=== PATIENT | male | born 1950 | race Caucasian/White ===

== ENCOUNTER 2016-08-20 17:20 | Emergency (ER) | payer MEDICARE, OTHER ==
[~2016-08-20] VITALS: Ht 175.3 cm; Wt 83.0 kg
[~2016-08-20 17:20] MED LIST: Z.0.NO CURRENT MEDS
[2016-08-20 17:22] VITALS: BP 164/97; PULSE 104; RESP 17; TEMP 98.4; O2SAT 95
--- NOTE | 2016-08-20 17:38 | PD ---
Physical Exam Date Seen by Provider: Aug 20, 2016 Time Seen by Provider: 17:36 Narrative 66 yo male here for blood on the urine. Has had it for a few days. Went to today to the doctor who sent him here. Here with a note from doctor and a test tube with urine which is red. Some non specific discomfort to his abdomen from "my IBS". No BM issues. Takes no blood thinners. Pain is 3/10 when he pees. Vitals are stable. Awaiting bed placement. Data Data Last Documented VS Vital Signs Date Time Temp Pulse Resp B/P Pulse Ox O2 Delivery O2 Flow Rate FiO2 08/20/16 17:22 98.4 104 17 164/97 95 MDM Medical Record Reviewed: Yes Supervised Visit with CORONA: No Junior Valerio Aug 20, 2016 17:38
[2016-08-20 18:38] LABS: BACTERIA, URINE MANY /hpf; BLOOD, URINE MOD (NEG); COMMENT (UR) CULTURE INDICATED; CULTURE IF INDICATED CULTURE INDICATED; GLUCOSE,URINE NEG (NEG); KETONE, URINE NEG (NEG); NITRITE,URINE NEG (NEG)
[2016-08-20 18:39] LABS: URINE COLOR DARK-BROWN (YELLW/STRAW)
--- NOTE | 2016-08-20 18:43 | PD ---
HPI Chief Complaint: Complaint Time Seen by Provider: 18:20 Travel History International Travel<30 days: No Contact w/Intl Traveler<30days: No Traveled to known affect area: No History of Present Illness HPI 66-year-old male sent in by primary care physician for evaluation of hematuria. Patient has been having gross hematuria since this morning as well as dysuria and increased urinary frequency. He is not sure if he is having lower back pain or flank pain, stating that he usually has pains in these areas anyway from age. He has been having some GI upset with abdominal cramping for the last week and blames it on irritable bowel syndrome. He is a nonsmoker. No known history of cancer. No family history of cancer. About 18 years ago he was told that his PSA was elevated and had extensive procedures on his prostate , however this was a lab error, and the patient went through some much during this time that he has not seen a physician since. He is not on any antiplatelets or anticoagulants. PFSH Past Medical History Blood Disorders: Yes (HOSPITALIZED FROM 06/12/07 - 06/18/07 FOR BLOOD CLOT TO RIGHT UPPER ARM) Cancer: No Diabetes: No Diminished Hearing: No Hepatitis: No Hiatal Hernia: No Hypertension: No Inguinal Hernia: Yes Thyroid Disease: No Past Surgical History Pacemaker: No Other Surgery: No Social History Alcohol Use: Yes (2 BEERS PER NIGHT) Tobacco Use: No Substance Use: No Allergies-Medications (Allergen,Severity, Reaction): Coded Allergies: No Known Allergies (Verified , 08/20/16) Reported Meds & Prescriptions Reported Meds & Active Scripts Active No Active Prescriptions or Reported Medications Review of Systems Except as stated in HPI: all other systems reviewed are Neg Physical Exam Narrative GENERAL: Well-developed, well-nourished, comfortable, no acute distress. SKIN: Focused skin assessment warm/dry. No pallor. HEAD: Atraumatic. Normocephalic. EYES: Pupils equal and round. No scleral icterus. No injection or drainage. ENT: Mucous membranes pink and moist. NECK: Trachea midline. No JVD. CV: No murmur appreciated. RESPIRATORY: No accessory muscle use. Clear to auscultation. Breath sounds equal bilaterally. GASTROINTESTINAL: Abdomen soft, non-tender, nondistended. Normal bowel sounds. MUSCULOSKELETAL: No obvious deformities. No clubbing. No cyanosis. No edema. No CVA tenderness. NEUROLOGICAL: Awake and alert. No obvious cranial nerve deficits. Motor grossly within normal limits. Normal speech. PSYCHIATRIC: Appropriate mood and affect; insight and judgment normal. Data Data Last Documented VS Vital Signs Date Time Temp Pulse Resp B/P Pulse Ox O2 Delivery O2 Flow Rate FiO2 08/20/16 17:22 98.4 104 17 164/97 95 Orders Urinalysis - C+S If Indicated (08/20/16 17:40) Complete Blood Count With Diff (08/20/16 18:33) Comprehensive Metabolic Panel (08/20/16 18:33) Prothrombin Time / Inr (Pt) (08/20/16 18:33) Act Partial Throm Time (Ptt) (08/20/16 18:33) Ct Abd/Pel W Iv Contrast(Rout) (08/20/16 18:33) Iv Access Insert/Monitor (08/20/16 18:33) Ecg Monitoring (08/20/16 18:33) Oximetry (08/20/16 18:33) Sodium Chloride 0.9% Flush (Ns Flush) (08/20/16 18:45) Urine Culture (08/20/16 17:45) Ceftriaxone Inj (Rocephin Inj) (08/20/16 18:45) Creatine Kinase (Cpk) (08/20/16 18:44) Iohexol 350 Inj (Omnipaque 350 Inj) (08/20/16 19:57) Ciprofloxacin (Cipro) (08/20/16 21:30) Metronidazole (Flagyl) (08/20/16 21:30) Labs Laboratory Tests Test 08/20/16 08/20/16 17:45 18:30 Urine Color DARK-BROWN Urine Turbidity CLOUDY Urine pH 6.0 Urine Specific [place] 1.015 Urine Protein 100 mg/dL Urine Glucose (UA) NEG mg/dL Urine Ketones NEG mg/dL Urine Occult Blood MOD Urine Nitrite NEG Urine Bilirubin NEG Urine Urobilinogen LESS THAN 2.0 MG/DL Urine Leukocyte Esterase MOD Urine RBC /hpf Urine WBC /hpf Urine Bacteria MANY /hpf Microscopic Urinalysis Comment CULTURE INDICATED White Blood Count 10.7 TH/MM3 Red Blood Count 4.21 MIL/MM3 Hemoglobin 12.7 GM/DL Hematocrit 37.2 % Mean Corpuscular Volume 88.5 FL Mean Corpuscular Hemoglobin 30.2 PG Mean Corpuscular Hemoglobin 34.2 % Concent Red Cell Distribution Width 13.3 % Platelet Count 371 TH/MM3 Mean Platelet Volume 7.8 FL Neutrophils (%) (Auto) 83.7 % Lymphocytes (%) (Auto) 8.3 % Monocytes (%) (Auto) 7.4 % Eosinophils (%) (Auto) 0.3 % Basophils (%) (Auto) 0.3 % Neutrophils # (Auto) 8.9 TH/MM3 Lymphocytes # (Auto) 0.9 TH/MM3 Monocytes # (Auto) 0.8 TH/MM3 Eosinophils # (Auto) 0.0 TH/MM3 Basophils # (Auto) 0.0 TH/MM3 CBC Comment DIFF FINAL Differential Comment Prothrombin Time 10.8 SEC Prothromb Time International 1.0 RATIO Ratio Activated Partial 28.5 SEC Thromboplast Time Sodium Level 138 MEQ/L Potassium Level 3.3 MEQ/L Chloride Level 102 MEQ/L Carbon Dioxide Level 28.1 MEQ/L Anion Gap 8 MEQ/L Blood Urea Nitrogen 9 MG/DL Creatinine 1.10 MG/DL Estimat Glomerular Filtration 67 ML/MIN Rate Random Glucose 101 MG/DL Calcium Level 9.1 MG/DL Total Bilirubin 0.4 MG/DL Aspartate Amino Transf 19 U/L (AST/SGOT) Alanine Aminotransferase 28 U/L (ALT/SGPT) Alkaline Phosphatase 82 U/L Total Creatine Kinase 93 U/L Total Protein 7.9 GM/DL Albumin 3.2 GM/DL MDM Medical Decision Making Medical Screen Exam Complete: Yes Emergency Medical Condition: Yes Differential Diagnosis UTI, cystitis, mass, nephrolithiasis/ureterolithiasis Narrative Course Vital signs reviewed. CBC shows WBC 10.7, hemoglobin 12.7, hematocrit 37.2, platelets 371, neutrophils 83.7%. CMP is remarkable for potassium 3.3, otherwise unremarkable. Total CK is 93. UA: 100 protein, moderate occult blood, moderate leukocyte esterase, innumerable rbc 's, innumerable wbc's, many bacteria, culture indicated. CT abdomen pelvis: CONCLUSION: 1. Long segment of thickening of the sigmoid colon with surrounding inflammatory change and suspected developing abscess all likely related to diverticulitis. An underlying lesion cannot be excluded. 2. Gallstone. 3. Several hyperdensities seen in the liver. The largest one measures 9 mm and measures water density. These likely represent small cysts. Case discussed with on-call colorectal surgeon Dr. Cabrera. States that it patient is well-appearing, he can be started on oral antibiotics and follow-up as an outpatient. Patient prefers to follow-up as an outpatient. While in the emergency department his urine has gone from gross dark/red hematuria to light pink. He was given a dose of IV Rocephin. He will be given oral Cipro and Flagyl. He was instructed to follow-up with colorectal surgeon Dr. Cabrera this week. He will also be given information to follow up with urology Dr. Gutierrez this week. I also stressed the importance of following up with his primary care physician this week. Patient informed on when to return to the emergency department. He verbalizes understanding and agreement with plan. Diagnosis Primary Impression: Sigmoid diverticulitis Additional Impressions: Hematuria UTI (urinary tract infection) Qualified Code: N39.0 - Urinary tract infection with hematuria, site unspecified Referrals: Chris Cabrera MD 3 days Colorectal surgeon Nic Gutierrez MD 3 days Urologist Primary Care Physician 3 days Additional Instructions: Follow-up with your primary care physician this week. Follow-up with colorectal surgeon Dr. Cabrera or a colorectal surgeon of your choice this week. Follow-up with urologist Dr. Gutierrez or urologist of your choice this week. Take antibiotics as prescribed. Return to the emergency department for worsening symptoms or any other concerns. Scripts Metronidazole (Flagyl)500 Mg [id number] Mg PO BID 14 Days Ref 0 Prov:David Nam MD 08/20/16 Ciprofloxacin (Cipro)500 Mg [id number] Mg PO BID 14 Days Ref 0 Prov:David Nam MD 08/20/16 Disposition: 01 DISCHARGE HOME Condition: Stable David Nam MD Aug 20, 2016 18:43
[2016-08-20] MEDS ORDERED: cefTRIAXone INJ 1,000 MG in SODIUM CHLORIDE 0.9% INJ 100 ML IV ONE (18:45)
[2016-08-20] MEDS ORDERED: SODIUM CHLORIDE 0.9% FLUSH 10 ML FLUSH IV FLUSH PRN (18:45)
[2016-08-20 19:05] LABS: AUTOMATED NEUTROPHIL # 8.9 TH/MM3 (1.8-7.7); BASOPHIL % 0.3 % (0.0-2.0); EOSINOPHIL % 0.3 % (0.0-4.0); HEMATOCRIT 37.2 % (39.0-51.0); HEMO FLAGS DIFF FINAL; LYMPH % 8.3 % (9.0-44.0); LYMPHOCYTE # 0.9 TH/MM3 (1.0-4.8); MEAN CELL VOLUME 88.5 FL (80.0-100.0); MEAN CORPUSCULAR HEMOGLOBIN 30.2 PG (27.0-34.0); MEAN CORPUSCULAR HGB CONC 34.2 % (32.0-36.0); MONO % 7.4 % (0.0-8.0); NEUT % 83.7 % (16.0-70.0); PLATELET COUNT 371 TH/MM3 (150-450); RED BLOOD COUNT 4.21 MIL/MM3 (4.50-5.90); RED CELL DISTRIBUTION WIDTH 13.3 % (11.6-17.2); WHITE BLOOD COUNT 10.7 TH/MM3 (4.0-11.0)
[2016-08-20 19:15] LABS: APTT (PATIENT) 28.5 SEC (24.3-30.1); PROTHROMBIN TIME - PATIENT 10.8 SEC (9.8-11.6)
[2016-08-20 19:23] LABS: ANION GAP 8 MEQ/L (5-15); AST (GOT) 19 U/L (15-37); BICARBONATE 28.1 MEQ/L (21.0-32.0); BLOOD UREA NITROGEN 9 MG/DL (7-18); CHLORIDE 102 MEQ/L (98-107); GLOMERULAR FILTRATION RATE 67 ML/MIN (>89); POTASSIUM 3.3 MEQ/L (3.5-5.1); SODIUM (NA) 138 MEQ/L (136-145)
[2016-08-20 19:24] LABS: ALT (GPT) 28 U/L (12-78)
[2016-08-20 19:26] LABS: ALKALINE PHOSPHATASE 82 U/L (45-117); TOTAL BILIRUBIN ADULT 0.4 MG/DL (0.2-1.0)
[2016-08-20] MEDS ORDERED: IOHEXOL 350 MG/ML 10 ML VIAL (for RAD DIAG) IV ONE (19:57)
--- NOTE | 2016-08-20 20:52 | RADRPT ---
EXAM DATE/TIME: 08/20/2016 19:47 [place] COMPARISON: No previous studies available for comparison. INDICATIONS : Patient with abdominal pain, bloody urine, pain when urinating. IV CONTRAST: 95 cc Omnipaque 350 (iohexol) IV ORAL CONTRAST: No oral contrast ingested. RADIATION DOSE: 8.76 CTDIvol (mGy) MEDICAL HISTORY : None SURGICAL HISTORY : Inguinal hernia ENCOUNTER: Initial ACUITY: 1 day PAIN SCALE: 5/10 LOCATION: Lower quadrant TECHNIQUE: Volumetric scanning of the abdomen and pelvis was performed. Using automated exposure control and adjustment of the mA and/or kV according to patient size, radiation dose was kept as low as reasonably achievable to obtain optimal diagnostic quality images. DICOM format image data is av ailable electronically for review and comparison. FINDINGS: There is thickening of the proximal and midsigmoid colon. There is surrounding inflamm atory change. There are scattered diverticula. There is a 2.4 cm ill-defined area of low density see n to the right of the proximal sigmoid colon likely related to a developing abscess. There is a calcified gallstone seen in the gallbladder. There are small hyperdensities seen in the l iver. The subcentimeter hyperdensity is likely related to cyst or hemangiomas. They are nonspecific . They are too small to be further characterized. The spleen, pancreas, adrenal glands and kidneys a ppear normal. The retroperitoneal structures are normal. There is diffuse bladder wall thickening. Much of this may be secondary to the lack of distension. There is only a small amount of fluid with in the urinary bladder. The prostate appears normal in size. The lung bases are clear. There is so me degenerative change in the lumbar spine. CONCLUSION: 1. Long segment of thickening of the sigmoid colon with surrounding inflammatory change and suspected developing abscess all likely related to diverticulitis. An underlying lesion cannot be excluded. 2. Gallstone. 3. Several hyperdensities seen in the liver. The largest one measures 9 mm and measures water density . These likely represent small cysts. Abram Amezcua MD on August 20, 2016 at 20:17 Board Certified Radiologist. This report was verified electronically.
[2016-08-20] MEDS ORDERED: metroNIDAZOLE 500 MG TAB PO ONE (21:30)
[2016-08-20] MEDS ORDERED: CIPROFLOXACIN 500 MG TAB PO ONE (21:30)
[2016-08-20] MEDS ORDERED: METR-1 PO (21:36)
[2016-08-20] MEDS ORDERED: CIPR-9 PO (21:36)
[2016-08-20 22:45] VITALS: BP 154/76; PULSE 80; RESP 18; O2SAT 98
== END 2016-08-20 22:45 | disposition home or self-care (01) ==
LOC: NEPD 17:20
DX: K57.32 Diverticulitis of large intestine without perforation or abscess without bleeding (principal); R31.9 Hematuria, unspecified; N39.0 Urinary tract infection, site not specified; B96.20 Unspecified Escherichia coli [E. coli] as the cause of diseases classified elsewhere; Z86.79 Personal history of other diseases of the circulatory system
CPT/HCPCS: 74177; 80053; 81001; 82550; 85025; 85610; 85730; 87077; 87086; 87186; 96365; 99285; J0696; Q9967

== ENCOUNTER 2016-09-16 14:12 | Inpatient (IN) | payer MEDICARE ==
[~2016-09-16] VITALS: Ht 177.8 cm; Wt 81.2 kg
[2016-09-17] MEDS ORDERED: CIPR-9 PO (17:04)
[2016-09-24] MEDS ORDERED: NORMOSOL R INJ 1,000 ML IV ONE (12:00)
[2016-09-24] MEDS ORDERED: NEOSTIGMINE 3 MG/3 ML SYR IV ONE (12:00)
[2016-09-24] MEDS ORDERED: ONDANSETRON HCL 4 MG/2 ML VIAL IV PUSH ONE (12:00)
[2016-09-24] MEDS ORDERED: PROPOFOL 200 MG/20 ML AMP IV ONE (12:00)
[2016-09-24] MEDS ORDERED: LACTATED RINGER'S 1000 ML INJ 1,000 ML IV ONE (12:00)
[2016-09-24] MEDS ORDERED: PHENYLEPH/NS 1000 MCG/10 ML SYR IV ONE (12:00)
[2016-09-24] MEDS ORDERED: CHLORHEXIDINE GLUCONATE 2 % 1 PACK (2 CLOTHS) TOPICAL PRN (12:45)
[2016-09-24] MEDS ORDERED: LACTATED RINGER'S 1000 ML IV PRN (12:45)
[2016-09-24] MEDS ORDERED: METRONIDAZOLE 500 MG/100 ML ISONTONIC SOLN IV SCH (12:45)
[2016-09-24] MEDS ORDERED: ceFAZolin 1,000 MG/NS 100 ML IV SCH ×2 (12:45)
[2016-09-24] MEDS ORDERED: POVIDONE IODINE 5% (ANTISEPSIS KIT) 4 APPLICATIONS EACH NARE PRN (12:45)
[2016-09-24] MEDS ORDERED: ALVIMOPAN 12 MG CAPSULE - On Call PO SCH (12:45)
[2016-09-24] MEDS ORDERED: METOPROLOL TARTRATE 25 MG TAB PO PRN (12:45)
[2016-09-24] MEDS ORDERED: SODIUM CHLORID 0.9% 500 ML IV PRN (12:45)
[2016-09-24] MEDS ORDERED: INSULIN HUMAN REGULAR 1,000 UNITS/10 ML VIAL SQ PRN (12:45)
[2016-09-24] MEDS ORDERED: METR-1 PO (12:49)
[2016-09-24 12:50] VITALS: BP 126/77; PULSE 98; RESP 20; TEMP 98.2; O2SAT 98
[2016-09-24] MEDS ORDERED: DEXT 5%-NACL 0.9% 1000 ML INJ 1,000 ML IV SCH (13:00)
--- NOTE | 2016-09-24 14:00 | PD.HP.UP ---
H&P Update Note The Pre-Admit History and Physical Examination regarding the above named patient was reviewed (including, but not limited to, vital signs, heart, lungs, co-morbid conditions), and upon re-examination it is noted that: the patient's condition has not significantly changed since the last examination. Chris Cabrera MD Sep 24, 2016 14:00
[2016-09-24] MEDS ORDERED: BUPIVACAINE HCL PF 0.5% 30 ML VIAL ONE (14:56)
[2016-09-24] MEDS ORDERED: ACETAMINOPHEN 1000 MG/100 ML VIAL IV ONE (14:59)
[2016-09-24] MEDS ORDERED: MIDAZOLAM HCL 2 MG/2 ML VIAL ONE ×2 (14:59→15:17)
[2016-09-24] MEDS ORDERED: FAMOTIDINE 20 MG/2 ML VIAL ONE (14:59)
[2016-09-24] MEDS: D5-NS + KCL 20 MEQ INJ 1,000 ML IV SCH ×2 (17:51→23:49)
[2016-09-24] MEDS ORDERED: DO NOT ADM ANY ANTICOAGULANT DRUGS PRN (17:54)
[2016-09-24] MEDS ORDERED: SODIUM CHLORIDE 0.9% FLUSH 5 ML FLUSH IVF PRN (18:00)
[2016-09-24] MEDS ORDERED: *morphine SULFATE 8 MG/ML PERIprocedure ONLY ONE ×3 (18:00→18:14)
[2016-09-24] MEDS ORDERED: BENZOCAINE 6 MG/MENTHOL 10 MG LOZENGE BUCCAL PRN (18:00)
[2016-09-24] MEDS ORDERED: ENALAPRILAT 2.5 MG/2 ML VIAL IV PRN (18:00)
[2016-09-24] MEDS ORDERED: Post-op Orders (for Pharmacy) MISC XX ONE (18:00)
[2016-09-24] MEDS ORDERED: KETOROLAC TROMETHAMINE 30 MG/ML (IVP) VIAL IVP PRN (18:00)
[2016-09-24] MEDS ORDERED: ENALAPRILAT 1.25 MG/ML VIAL IV PRN (18:00)
[2016-09-24] MEDS ORDERED: POTASSIUM CHLOR 40 MEQ PREMIX 100 ML IV PRN (18:00)
[2016-09-24] MEDS ORDERED: NALOXONE HCL 0.4 MG/ML AMP IV PRN (18:00)
[2016-09-24] MEDS ORDERED: POTASSIUM CHLOR 20 MEQ PREMIX 100 ML IV PRN (18:00)
[2016-09-24] MEDS ORDERED: ACETAMINOPHEN/HYDROcodone 325 MG/5 MG TAB PO PRN (18:00)
--- NOTE | 2016-09-24 18:01 | HHI.PR ---
Immediate Post Op Note Procedure Date: Sep 24, 2016 Pre Op Diagnosis: Cancer rectosigmoid Post Op Diagnosis: same with colovesical fistula, peritoneal carcinomatosis Surgeon: Chris Cabrera Certified Caregiver(s): Reba Procedure: Exploratory lap, resection rectosigmoid, Baldomero pouch, end colostomy closure bladder fistual, omental flap Findings: obstructing ca sigmoid colon with fistual to bladder dome, peritoneal seeds liver/GB clean Complications: none Specimen(s) removed: rectosigmoid colon, bladder fistula Estimated blood loss: 100cc Anesthesia: General Drains: KANG IVF Patient to: PACU Patient Condition: Chris Bridges MD Sep 24, 2016 18:01
[2016-09-24] MEDS ORDERED: fentaNYL CITRATE 250 MCG/5 ML AMP ONE ×2 (18:03)
[2016-09-24] MEDS ORDERED: *HYDROmorphone PF 1 MG VIAL PERIprocedural Use ONLY ONE (18:26)
--- NOTE | 2016-09-24 20:04 | MB ---
cc: EM REAL MD, TIMOTHY DATE OF CONSULTATION: 09/24/2016 REASON FOR CONSULTATION: NOTE IN DETAIL This is a 66-year-old gentleman who is under the care of Dr. Jason Britton and Dr. Chris Cabrera. He was being operated upon for what appeared to be a sigmoid colon carcinoma. Throughout the course of the surgery it became apparent that the gentleman has significant involvement of the serosal surface and the peritoneal layer of the inferior most aspect of his abdomen as that courses over the top of his bladder or the dome of the bladder. We did not know, or do not know, if there is involvement within the bladder itself, however, as the tumor was taken down from the dome, it appeared that there was a tiny bit of urine coming out from the bladder, so our service was consulted. Dr. Britton was able to place a [id number] suture into the bladder itself to tighten that area up, and then although the tissue somewhat firm over the dome of the bladder, we used a multitude of 0 Vicryl ligatures to pull that area together to provide some coverage, even though ultimately it may very well pull through. How much of this is just inflammatory tissue versus tumor is not clear at the moment. He has widespread metastatic disease throughout the pelvis unfortunately. The Juares catheter was left in place. The dome has been oversewn. There has been omental fat placed over the top of this and there is nothing further that we can do at the moment. We will remain available for additional consultative help. In the meantime, the catheter should be left in for at least 3 weeks and then we can be reconsulted if necessary. I spent about a half hour in the operating room observing, and made myself available to surgically assist if need be, and it turned out that I did not need to actively intervene. MD MARTA Romano/ELIZABETH /7:48 PM /7:55 PM
[2016-09-24] MEDS: MORPHINE SULFATE 30 MG/30 ML PCA IV SCH (20:16)
[2016-09-24 20:30] VITALS: BP 128/78; PULSE 94; RESP 16; TEMP 98.1; O2SAT 99
[2016-09-24] MEDS: SODIUM CHLORIDE 0.9% FLUSH 5 ML FLUSH IVF SCH (21:00)
[2016-09-24] MEDS: METOCLOPRAMIDE HCL 10 MG/2 ML VIAL IVS SCH (21:00)
[2016-09-24] MEDS: PCA - TOTAL MG MORPHINE DELIVERED PER SHIFT SCH (22:00)
[2016-09-24] MEDS: metroNIDAZOLE 500 MG INJ 100 ML IV SCH (23:43)
[2016-09-25] VITALS (18 sets, daily range): BP systolic 106–145; BP diastolic 64–88; PULSE 59–102; RESP 14–17; TEMP 96.8–98.2; O2SAT 95–100
[2016-09-25 05:49] LABS: AUTOMATED NEUTROPHIL # 9.1 TH/MM3 (1.8-7.7); BASOPHIL % 0.1 % (0.0-2.0); HEMO FLAGS DIFF FINAL; LYMPH % 2.3 % (9.0-44.0); LYMPHOCYTE # 0.2 TH/MM3 (1.0-4.8); MEAN CELL VOLUME 89.7 FL (80.0-100.0); MEAN CORPUSCULAR HEMOGLOBIN 29.8 PG (27.0-34.0); MEAN CORPUSCULAR HGB CONC 33.2 % (32.0-36.0); MONO % 5.1 % (0.0-8.0); NEUT % 92.5 % (16.0-70.0); PLATELET COUNT 291 TH/MM3 (150-450); RED BLOOD COUNT 3.68 MIL/MM3 (4.50-5.90); WHITE BLOOD COUNT 9.8 TH/MM3 (4.0-11.0)
[2016-09-25] MEDS: PCA - TOTAL MG MORPHINE DELIVERED PER SHIFT SCH ×3 (06:00→22:00)
[2016-09-25 06:13] LABS: BICARBONATE 26.7 MEQ/L (21.0-32.0); POTASSIUM 4.5 MEQ/L (3.5-5.1)
[2016-09-25] MEDS: D5-NS + KCL 20 MEQ INJ 1,000 ML IV SCH ×4 (06:27→23:11)
[2016-09-25] MEDS: metroNIDAZOLE 500 MG INJ 100 ML IV SCH ×2 (06:27→13:18)
[2016-09-25] MEDS: PANTOPRAZOLE SOD 40 MG DELAYED RELEASE TAB PO SCH (08:47)
[2016-09-25] MEDS: ALVIMOPAN 12 MG CAPSULE PO SCH ×2 (08:48→20:36)
[2016-09-25] MEDS: SODIUM CHLORIDE 0.9% FLUSH 5 ML FLUSH IVF SCH ×2 (08:49→20:39)
[2016-09-25] MEDS: PANTOPRAZOLE SODIUM 40 MG VIAL IVP SCH (08:49)
[2016-09-25] MEDS: METOCLOPRAMIDE HCL 10 MG/2 ML VIAL IVS SCH ×2 (08:49→20:36)
[2016-09-25] MEDS ORDERED: ALVIMOPAN 12 MG CAPSULE - Post-op dosing PO SCH (09:00)
--- NOTE | 2016-09-25 11:27 | PD.WCN.NOT ---
Wound Consult Description: Consult for NEW OSTOMY TEACHING per Dr Cabrera Communicated with: CHAPARRITA Hardy Dr Recommendation: Follow up with [facility] RN for ostomy teaching and reinforcement Additional Information: Patient seen on [facility] for New Ostomy teaching. Patient was lying in bed with significant other standing at his at bedside. After introducing myself, and explaining the new ostomy on his abdomen, the patient asked what it was. Information was given to the patient about the colostomy surgery that was performed. Patient stated that he did not know he was going to have "the bag" when going home, referring to the ostomy appliance. It was apparent that the patient needed more time to process what he had learned about his new ostomy, he became tearful and withdrawn from the conversation. It was explained to him that he would be given some time to process the information and will be seen again tomorrow. Ostomy Type: Colostomy Surgeon: Chris Cabrera MD Date of Surgery: Sep 24, 2016 Complete: Education materials ([facility] Colostomy kit left in room for patient when he is ready to open and read "What to Expect with Colostomy Surgery" it is available) Educated patient on: Educated patient on his colostomy surgery. Informed him that the pouch will need to be emptied, the RN's would be doing this often and when he is ready, we would be showing him how to empty it. Additional information Stoma is noted in the left upper quadrant of the abdomen measuring ~1 3/4 inches. Stoma is round, red, moist, edematous, moderately protruding, and functioning with minimal liquid brown effluent noted to pouch. Wafer (barrier) is intact without leaks. Lumen appears to be in the center of the stoma. Peristomal skin and mucocutaneous junction are not visualized at this time. There is foam tape noted to midline abdomen and on lower right quadrant with Azeem Shah drain in place with minimal serosang drainage noted. Josette Reis [facility] Sep 25, 2016 11:27
[2016-09-25] MEDS: ONDANSETRON HCL 4 MG/2 ML VIAL IV PRN (15:51)
[2016-09-25] MEDS: ACETAMINOPHEN/HYDROcodone 325 MG/5 MG TAB PO PRN ×2 (15:51→20:38)
[2016-09-25] MEDS: MORPHINE SULFATE 30 MG/30 ML PCA IV SCH (17:45)
[2016-09-25] MEDS: ACETAMINOPHEN 325 MG TAB PO PRN (23:00)
[2016-09-26 04:00] VITALS: BP 120/69; PULSE 71; RESP 16; TEMP 96.3; O2SAT 97
[2016-09-26] MEDS: PCA - TOTAL MG MORPHINE DELIVERED PER SHIFT SCH ×3 (05:11→22:00)
[2016-09-26 06:59] LABS: AUTOMATED NEUTROPHIL # 6.1 TH/MM3 (1.8-7.7); BASOPHIL % 0.2 % (0.0-2.0); EOSINOPHIL % 0.4 % (0.0-4.0); HEMATOCRIT 30.8 % (39.0-51.0); HEMO FLAGS DIFF FINAL; LYMPH % 7.4 % (9.0-44.0); LYMPHOCYTE # 0.5 TH/MM3 (1.0-4.8); MEAN CELL VOLUME 89.7 FL (80.0-100.0); MEAN CORPUSCULAR HEMOGLOBIN 29.6 PG (27.0-34.0); MEAN CORPUSCULAR HGB CONC 33.1 % (32.0-36.0); MONO % 7.1 % (0.0-8.0); NEUT % 84.9 % (16.0-70.0); PLATELET COUNT 264 TH/MM3 (150-450); RED BLOOD COUNT 3.43 MIL/MM3 (4.50-5.90); RED CELL DISTRIBUTION WIDTH 14.3 % (11.6-17.2); WHITE BLOOD COUNT 7.2 TH/MM3 (4.0-11.0)
[2016-09-26 07:19] LABS: BICARBONATE 25.5 MEQ/L (21.0-32.0); POTASSIUM 4.5 MEQ/L (3.5-5.1)
[2016-09-26 08:00] VITALS: BP 159/79; PULSE 79; RESP 18; TEMP 97.5; O2SAT 96
[2016-09-26] MEDS: SODIUM CHLORIDE 0.9% FLUSH 5 ML FLUSH IVF SCH ×2 (08:24→20:12)
[2016-09-26] MEDS: METOCLOPRAMIDE HCL 10 MG/2 ML VIAL IVS SCH ×2 (08:24→20:12)
[2016-09-26] MEDS: PANTOPRAZOLE SOD 40 MG DELAYED RELEASE TAB PO SCH (08:24)
[2016-09-26] MEDS: ALVIMOPAN 12 MG CAPSULE PO SCH ×2 (08:24→20:12)
[2016-09-26] MEDS: PANTOPRAZOLE SODIUM 40 MG VIAL IVP SCH (08:25)
[2016-09-26] MEDS: ACETAMINOPHEN/HYDROcodone 325 MG/5 MG TAB PO PRN ×4 (11:08→22:48)
[2016-09-26] MEDS: ONDANSETRON HCL 4 MG/2 ML VIAL IV PRN (11:09)
[2016-09-26 12:00] VITALS: BP 136/78; PULSE 89; RESP 18; TEMP 98.7; O2SAT 99
[2016-09-26] MEDS: D5-NS + KCL 20 MEQ INJ 1,000 ML IV SCH ×2 (12:03→22:49)
[2016-09-26 16:00] VITALS: BP 128/76; PULSE 82; RESP 18; TEMP 98; O2SAT 99
--- NOTE | 2016-09-26 18:18 | PD.WCN.NOT ---
Wound Consult Description: Consult for NEW OSTOMY TEACHING per Dr Cabrera Communicated with: CHAPARRITA Selby Patient Daughter Recommendation: Continue to practice releasing air from pouch. Read "What to expect after Colostomy Surgery" Follow up with [facility] RN after discharge for ostomy teaching and reinforcement Additional Information: Patient seen on for Ostomy teaching. Patient stated feeling a little better, however requested that his be here during teaching. It was explained to him that we could arrange for another teaching session with her tomorrow but that we were going to go over a few things in the mean time. Ostomy Type: Colostomy Surgeon: Chris Cabrera MD Date of Surgery: Sep 24, 2016 Complete: Starter kit, Education materials ([facility] Colostomy kit left in room for patient when he is ready to open and read "What to Expect with Colostomy Surgery" it is available) Educated patient on: Patient stated that he had only seen his bag, nothing more. He was given a booklet from the starter kit that was given to him yesterday, that goes over some basic information regarding colostomies, the intestinal system, and pouching options. He was encouraged to read that later tonight. Time was spent going over how the intestines work and what they do for him to better understand the functions. We discussed differences in ostomies and the benefits to having one. The stoma was explained to him, how it was made, and what kind of output he should expect from it including noises. The patient was taught how to release the air from the pouch and he participated in this. He also learned how to close the pouch after gag writer emptied the pouch. The patient was interested in different types of pouches. Two different types of appliances were shown to him (closed ended pouches and one piece appliances). Additional information End stoma is visualized in the left quadrant of the abdomen. Appliance is intact without leaks noted. The pouch was partially removed to release air from pouch. The stoma is red, round, edematous, shiny, moist, budded, moderately protruding, functioning with flatus, and moderate brown liquid effluent noted to pouch that was emptied. Lumen is noted to the center of the stoma. Mucocutaneous junction was not visualized at this time. Patient has foam tape in place on midline abdomen. Questions regarding gray catheter and isela sommers drain were answered. Patient was participating in the conversation with return demonstration. Patient and daughter came into room 15 minutes after teaching began. Total time teaching was approximately 1 hour (from [id number]). Josette Reis [facility] Sep 26, 2016 18:18
[2016-09-26 19:00] VITALS: BP 131/76; PULSE 87; RESP 18; TEMP 98; O2SAT 98
--- NOTE | 2016-09-26 20:46 | MB ---
cc: VIKAS DAY M.D., ANDREW H. M.D. DATE OF CONSULTATION: 09/26/2016. REASON FOR CONSULTATION: Oncology was consulted to render opinion regarding a patient with colon cancer. CONSULTING PHYSICIAN: Dr. Chris Cabrera. HISTORY OF PRESENT ILLNESS: The patient is a very pleasant 66-year-old male with no significant past medical history who first noted blood in the urine about six weeks ago. He also noted some yellowish mucus. He went to see his primary doctor and was referred to the emergency room for evaluation of a urinary tract infection. At that time, he had a CT of the abdomen and pelvis which showed possible diverticulitis and abscess but an underlying mass could not be ruled out. He was referred to see Dr. Cabrera and a colonoscopy was attempted but he was noted to have possible colon mass. He subsequently developed a colovesical fistula and he was noticing food particles and air in his urine. He was brought into the hospital for surgical intervention. He underwent exploratory laparotomy two days ago and was noted to have a large tumor obstructing the sigmoid colon invading to the dome of the bladder. There was also a peritoneal seeding noted. He underwent resection of the rectosigmoid and colostomy placement as well as closure of the bladder fistula. He is slowly recovering from surgery. He still is a little tender but it is much better today. He denies any fever or chills or night sweats. He has lost about 25 pounds over the last six weeks. He has decreased appetite. He denies any chest pain. He denies any shortness of breath or cough. He denies any bone pain. PAST MEDICAL HISTORY: 1. Right upper extremity venous thrombosis in 2008. 2. Encephalitis. 3. Heat stroke in 2003. PAST SURGICAL HISTORY: 1. Hernia repair in 2013. 2. Recent colonoscopy. FAMILY HISTORY: Two brothers and one sister but he has no contact with them. He has two sons and two daughters, all healthy. SOCIAL HISTORY: He denies any tobacco use. He drinks about two beers a day. He is retired. He recently from his . ALLERGIES: NO KNOWN DRUG ALLERGIES. OUTPATIENT MEDICATIONS: He was not taking any medications before the hospital stay. REVIEW OF SYSTEMS: CONSTITUTIONAL: As above. EYES: Negative. ENT: Negative. CARDIOVASCULAR: Denies any chest pressure or palpitations. RESPIRATORY: Denies any shortness of breath or cough. GI: As above. : As above. HEMATOLOGIC: Negative. MUSCULOSKELETAL: Denies any significant bone pain or muscle pain. ENDOCRINE: Negative. DERMATOLOGIC: Negative. PSYCHIATRIC: He is a little anxious. NEUROLOGIC: Negative. PHYSICAL EXAMINATION: VITAL SIGNS: Temperature 98, blood pressure 128/76, 02 saturation 99%. GENERAL: He is alert and oriented times three and in no acute distress. He is a little anxious. HEAD, EYES, EARS, NOSE, THROAT: Atraumatic, normocephalic. Pupils equal, round, reactive to light. Extraocular muscles intact. No scleral icterus. OROPHARYNX: Dry mucosa. No lesions. No thrush. No mucositis. NECK: No thyromegaly. No palpable mass. LYMPHATIC: No palpable cervical, clavicular, axillary or inguinal lymph nodes. CARDIOVASCULAR: Regular S1-S2. No murmur. LUNGS: Clear to auscultation bilaterally. ABDOMEN: Colostomy noted. Positive bowel sounds. Surgical wound noted. No skin breakdown. No erythema. Still a little tender EXTREMITIES: No cyanosis. No clubbing. No edema. SKIN: No rash or petechiae. NEUROLOGIC EXAM: Nonfocal. LABORATORY DATA: Reviewed. ASSESSMENT: 1. Locally advanced colon cancer. He presented with abdominal pain and colovesical fistula. CT at the end of July showed a long segment of thickened sigmoid and underlying mass cannot be ruled out. Colonoscopy showed an obstructing mass in the sigmoid colon. CEA was normal 4.9. He underwent exploratory laparotomy, resection of rectosigmoid and placement of a Baldomero pouch, colostomy and closure of bladder fistula on September 24. He was noted to have a large obstructing mass in the sigmoid colon with fistula to the bladder dome and also seeding of the peritoneum. 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 There is also tumor perforation noted. Tumor invades adjacent bladder and 14 out of 15 lymph nodes were positive. Pathologic stage T4b N2b MX. I had an extensive discussion with the patient regarding the pathologic findings, diagnosis, staging, prognosis and treatment options. His disease appears to be locally advanced and can not be completely resected. There is seeding of the peritoneum. I told him treatment is going to be chemotherapy. I would like to get a PET scan as an outpatient for further staging. Once he has healed from the surgery, we could treat him with chemotherapy. I am also going to have pathology do mutation study to help guide the choice of systemic therapy. The patient is rather anxious. He had some questions today, which I answered. I also told him that he is going to need a port placement for chemotherapy administration but he would like to put it off first and we can do this as an outpatient. 2. History of right upper extremity deep venous thrombosis in 2008. 3. History of stroke and possible encephalitis. RECOMMENDATIONS: 1. Extensive discussion with the patient as above. 2. Will need outpatient PET/CT scan. 3. He is going to need port placement for chemotherapy administration but the patient would like to get it done as an outpatient. I discussed the case with Dr. Cabrera. Thank you, Dr. Cabrera, for asking me to see this patient. MD LUCIANA Street/BERNIE /7:47 PM /8:28 PM CIARA
--- NOTE | 2016-09-26 21:12 | MP ---
cc: DAVID ANAND MD DATE OF SURGERY 09/24/16 PREOPERATIVE DIAGNOSIS Obstruction of the rectosigmoid, probable colon carcinoma with colovesical fistula. PROCEDURE Exploratory laparotomy with proctosigmoidectomy, Baldomero pouch and end colostomy, closure of colovesical fistula. POSTOPERATIVE DIAGNOSIS Large bulky carcinoma of the sigmoid colon with colovesical fistula and peritoneal carcinomatosis. SURGEON Dr. Anand TRACK GREASER Dr. Magdalena Britton PROCEDURE IN DETAIL The patient was placed in the supine position. After adequate general anesthesia, his legs were placed in [place] stirrups and supported appropriately. The abdomen and perineum were then prepped with Betadine solution and draped in the usual sterile fashion. With Dr. Britton's assistance, the abdomen was opened through an infraumbilical and transverse incision dividing the rectus muscles with electrocautery. Exploration revealed a very large bulky tumor of the sigmoid colon which was stuck down to the bladder dome. It was very hard with signs of serosal puckering and evidence of peritoneal seating throughout the sigmoid mesentery and the pelvic peritoneum and cul-de-sac. The proximal colon was softly distended, mostly full of air and liquid stool. The liver was unremarkable. The gallbladder was unremarkable. Stomach and duodenum were normal. The great vessels were of normal caliber and fairly soft to palpation. First, the sigmoid colon was mobilized medially by dividing along the white line of Toldt. The left ureter was identified and carefully preserved. Dissection then proceeded up freeing the left colon off the retroperitoneum toward the splenic flexure. The right retroperitoneal space was then opened and the bowel dissected off the presacral fascia. At this point, it appeared that the tumor would be resectable so the pedicle for the superior hemorrhoidal vessels was identified and divided between Rand's obtaining hemostasis with Vicryl ties. The right ureter was identified and carefully preserved. Anteriorly, the colon was from the bladder dome with both blunt and sharp dissection, dividing the fistula, fistulous attachment to the bladder. At this point, the sigmoid colon was mobilized adequately to bring the tumor up out of the pelvis. There did appear to be peritoneal seeding along the cul-de-sac and the lateral peritoneal reflections. There was also tumor in the region of the colovesical fistula and the bladder peritoneal surface. For that reason, palliative resection was chosen dividing outside the rectal mesentery with electrocautery and Vicryl ties as indicated. The bowel was then divided in the proximal rectum using a TA 60 stapling device and a Denisha clamp. The mesentery was then divided in the proximal sigmoid above the tumor taking the marginal artery between Rand's obtaining hemostasis with Vicryl ties. The bowel was then divided using a YENNIFER stapling device and the specimen was removed. Attention was turned to the bladder fistula. A curette was used to remove as much of the inflammatory tissue around the outside of the fistula. The actual opening in the bladder was fairly small and this was closed after adequate debridement with several interrupted heavy Vicryl sutures. Attempts to resect the dome of the bladder were considered, however, due to the extensive peritoneal disease it was felt prudent not to proceed with an extensive bladder resection. The omentum was taken off the transverse colon along its avascular plane and a long pedicle flap was created which was able to be passed down the left gutter and filled the pelvis quite nicely. This was placed up along the bladder closure. Azeem-Shah drain was placed down into the presacral space and brought up through a stab wound in the right lower quadrant, secured to the skin with a nylon suture. Circular stab wound was then created in the left upper quadrant and taken down through the subcutaneous tissues opening up the rectus fascia splitting the rectus muscles and bringing the end of the sigmoid colon out through the opening without tension and with good blood supply. The abdomen was then irrigated copiously with normal saline. Adequate hemostasis achieved at all sites. The transverse incision closed anatomically in two layers using #1 PDS sutures to reapproximate the respective fascial layers. Subcu tissue was irrigated copiously and the skin closed with a running subcuticular Vicryl suture. Wound area washed with normal saline and dried, sterile dressing of Telfa and gauze applied. Finally, the YENNIFER staple line was removed from the end of the colostomy and the end of the sigmoid colon matured in the usual Cathy fashion by placing a row of interrupted chromic catgut sutures around the circumference. At completion, the stoma did appear to be viable and was patent through the fascial level. Sterile colostomy appliance fitted over the new stoma. The patient tolerated the procedure quite well and was brought to the recovery room in stable condition. Sponge and needle counts were correct at the end of the procedure. MD DELROY Noble /5:57 PM /8:56 PM
--- NOTE | 2016-09-26 23:01 | HHI.PR ---
Subjective Remarks C/R Surg POD # 2 afebrile, VSS UO good KANG min Objective - Vital Signs Date Time Temp Pulse Resp B/P Pulse Ox O2 Delivery O2 Flow Rate FiO2 09/26/16 19:00 98.0 87 18 131/76 98 09/25/16 08:04 Nasal Cannula 2.00 Result Diagram: 09/26/16 0552 09/26/16 0552 Objective Remarks PE alert Abd - soft, wound dry, stoma clean A/P Assessment and Plan Imp: stable post-op OOB oncology eval adv diet decr IVF Chris Cabrera MD Sep 26, 2016 23:01
[2016-09-27] VITALS: BP 156/78; PULSE 74; RESP 18; TEMP 96.6; O2SAT 99
[2016-09-27] MEDS: ACETAMINOPHEN/HYDROcodone 325 MG/5 MG TAB PO PRN ×4 (05:02→22:53)
--- NOTE | 2016-09-27 07:10 | HHI.PR ---
Subjective Remarks C/R Surg POD # 3 afebrile, VSS UO good KANG min stoma functioning Objective - Vital Signs Date Time Temp Pulse Resp B/P Pulse Ox O2 Delivery O2 Flow Rate FiO2 09/27/16 00:00 96.6 74 18 156/78 99 09/25/16 08:04 Nasal Cannula 2.00 Result Diagram: 09/26/16 0552 09/26/16 0552 Objective Remarks PE alert Abd - soft, wound dry, stoma clean/pink A/P Assessment and Plan Imp: stable post-op OOB oncology eval - done adv diet decr IVF Chris Cabrera MD Sep 27, 2016 07:10
[2016-09-27] MEDS ORDERED: METOCLOPRAMIDE HCL 10 MG/2 ML VIAL IVS PRN (07:15)
[2016-09-27 08:00] VITALS: BP 153/75; PULSE 75; RESP 17; TEMP 97.7; O2SAT 98
[2016-09-27] MEDS: PANTOPRAZOLE SODIUM 40 MG VIAL IVP SCH (09:00)
[2016-09-27] MEDS: SODIUM CHLORIDE 0.9% FLUSH 5 ML FLUSH IVF SCH ×2 (09:00→21:00)
[2016-09-27] MEDS: ALVIMOPAN 12 MG CAPSULE PO SCH ×2 (09:32→22:52)
[2016-09-27] MEDS: PANTOPRAZOLE SOD 40 MG DELAYED RELEASE TAB PO SCH (09:32)
[2016-09-27 12:00] VITALS: BP 118/76; PULSE 101; RESP 17; TEMP 96; O2SAT 99
--- NOTE | 2016-09-27 12:30 | PD.ONC.PN ---
Subjective Subjective Remarks Afebrile overnight. Patient resting in room. Reports the Lortab has been making him feel "loopy." Objective Data Date Time Temp Pulse Resp B/P Pulse Ox O2 Delivery O2 Flow Rate FiO2 09/27/16 08:00 97.7 75 17 153/75 98 09/27/16 00:00 96.6 74 18 156/78 99 09/26/16 22:00 18 09/26/16 19:00 98.0 87 18 131/76 98 09/26/16 16:00 98.0 82 18 128/76 99 09/26/16 14:00 18 Result Diagram: 09/26/16 0552 09/26/16 0552 Administered Medications Medications (Trade) Dose Ordered Sig/Jose Manuel Route PRN Reason Start Time Stop Time Status Last Admin Dose Admin Lactated Ringer's 1,000 ml @ 30 mls/hr Q24H PRN IV SEE LABEL COMMENTS 09/24/16 12:45 09/27/16 12:44 09/24/16 12:56 Potassium Chloride/Dextrose/ Sod Cl (D5-NS + KCl 20 Meq Inj) 1,000 ml @ 75 mls/hr [id number] IV 09/24/16 17:51 09/26/16 22:49 Acetaminophen/ Hydrocodone Bitart ([place] 5-325 Mg) 2 tab Q4H PRN PO PAIN SCALE 5 TO 10 09/24/16 18:00 09/27/16 09:32 Acetaminophen (Tylenol) 650 mg Q4H PRN PO Temperature > 101F 09/24/16 18:00 09/25/16 23:00 Alvimopan (Entereg) 12 mg BID PO 09/25/16 09:00 10/01/16 21:01 09/27/16 09:32 Pantoprazole Sodium (Protonix Inj) 40 mg DAILY IVP 09/25/16 09:00 09/25/16 08:49 Pantoprazole Sodium (Protonix) 40 mg DAILY PO 09/25/16 09:00 09/27/16 09:32 Ondansetron HCl (Zofran Inj) 4 mg Q6H PRN IV NAUSEA 09/24/16 18:00 09/26/16 11:09 Objective Remarks GENERAL: Middle aged male upright in bed in nad. SKIN: Warm and dry. HEAD: Normocephalic. EYES: No injection or drainage. NECK: Supple, trachea midline. CARDIOVASCULAR: Regular rate and rhythm RESPIRATORY: Breath sounds equal bilaterally. No accessory muscle use. GASTROINTESTINAL: Abdomen soft, mildly distended. colostomy bag in place with liquid stool. EXTREMITIES: No cyanosis NEUROLOGICAL: awake and alert, normal speech. moving all extremities. Assessment/Plan Problem List: (1) Colon cancer Status: Acute Plan: --Locally advanced colon cancer. --presented with abdominal pain and colovesical fistula. -- CT at the end of July showed a long segment of thickened sigmoid and underlying mass cannot be ruled out. --underwent exploratory laparotomy, resection of rectosigmoid and placement of a Baldomero pouch, colostomy and closure of bladder fistula on September 24. --was noted to have a large obstructing mass in the sigmoid colon with fistula to the bladder dome and also seeding of the peritoneum. 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 There is also tumor perforation noted. Tumor invades adjacent bladder and 14 out of 15 lymph nodes were positive. -- Pathologic stage T4b N2b MX. Assessment 66y/o male with colon cancer --presented to ED. CT ab/pelvis showed mass. exploratory laparotomy showed large tumor obstructing the sigmoid colon invading to the dome of the bladder. There was also a peritoneal seeding noted. --underwent resection of the rectosigmoid and colostomy placement as well as closure of the bladder fistula. h/o Right upper extremity venous thrombosis in 2008. Encephalitis. Heat stroke in 2003. Hernia repair in 2013. Recent colonoscopy. Plan 1. I called and spoke with radiology and scheduled patient's port placement outpatient for 10.03.16. I gave the patient his appointment. 2. fs faxed to new patient referrals for follow up with Dr. Hernández in 1 week. Attending Statement The exam, history, and the medical decision-making described in the above note were completed with the assistance of the mid-level provider. I reviewed and agree with the findings presented. I attest that I had a [id number] encounter with the patient on the same day, and personally performed and documented my assessment and findings in the medical record. Abdominal pain improving. He has more questions today which I answered. Set up outpt port placement and oncology f/u. Will have pathology do KRAS,MSI,BRAF studies. Elda Bowen Sep 27, 2016 12:30 Vick Hernández MD Sep 27, 2016 17:13
--- NOTE | 2016-09-27 13:21 | PD.WCN.NOT ---
Wound Consult Description: OSTOMY TEACHING Communicated with: CHAPARRITA Selby Recommendation: Continue to practice releasing air from pouch. Practice emptying your pouch. Follow up with [facility] RN after discharge for further ostomy teaching and reinforcement Additional Information: Patient seen on for ostomy teaching. Supplies ordered for patient to go home with at discharge. [facility] contacted after verbal consent obtained from patient for supplies to be sent to patients home. Ostomy Type: Colostomy Surgeon: Chris Cabrera MD Date of Surgery: Sep 24, 2016 Complete: Starter kit, Education materials ([facility] Colostomy kit left in room for patient when he is ready to open and read "What to Expect with Colostomy Surgery" it is available) Educated patient on: Releasing air from pouch. Emptying the pouch. Diet (encouraged to eat things he likes). Light exercise (walking). Educated on no heavy lifting and support of the abdomen with a pillow for coughing,sneezing etc. Additional information Patient seen today on while patient was sitting up in chair. Pouch was removed to reposition for ambulating and sitting up straight. Stoma was visualized today and noted to be edematous, red, round, moist, moderately protruding, lumen noted in center of stoma, functioning with brown liquid effluent and positive for flatus. Patient states that he read the booklet last night, twice. He was able to participate in conversation regarding his stoma and the placement as well as questions concerning working with a stoma down the road. 4 appliances ordered for patient to go home with in his size. Will follow up with patient on Friday if not discharged with [facility] this weekend. Patient is to go home with and [facility]. Josette Reis [facility] Sep 27, 2016 13:21
[2016-09-27] MEDS: D5-NS + KCL 20 MEQ INJ 1,000 ML IV SCH ×2 (14:43→23:05)
[2016-09-27 16:00] VITALS: BP 132/80; PULSE 102; RESP 17; TEMP 95.7; O2SAT 98
[2016-09-27 20:00] VITALS: BP 170/95; PULSE 88; RESP 18; TEMP 98.7; O2SAT 97
[2016-09-27 22:00] VITALS: BP 140/83
[2016-09-28] VITALS: BP 155/77; PULSE 80; RESP 16; TEMP 97.2; O2SAT 99
[2016-09-28] MEDS: ACETAMINOPHEN/HYDROcodone 325 MG/5 MG TAB PO PRN ×3 (05:50→19:29)
[2016-09-28 08:00] VITALS: BP 161/70; PULSE 73; RESP 18; TEMP 96.3; O2SAT 98
[2016-09-28] MEDS: PANTOPRAZOLE SODIUM 40 MG VIAL IVP SCH (09:00)
[2016-09-28] MEDS: SODIUM CHLORIDE 0.9% FLUSH 5 ML FLUSH IVF SCH ×2 (09:00→19:32)
--- NOTE | 2016-09-28 09:12 | HHI.PR ---
Subjective Remarks C/R Surg POD # 4 afebrile, VSS UO good - gray irrigated KANG min stoma functioning Objective - Vital Signs Date Time Temp Pulse Resp B/P Pulse Ox O2 Delivery O2 Flow Rate FiO2 09/28/16 00:00 97.2 80 16 155/77 99 09/25/16 08:04 Nasal Cannula 2.00 Result Diagram: 09/26/16 0552 09/26/16 0552 Objective Remarks PE alert Abd - soft, wound dry, stoma clean/pink A/P Assessment and Plan Imp: OOB adv diet decr IVF dc plans Chris Cabrera MD Sep 28, 2016 09:12
--- NOTE | 2016-09-28 09:13 | PD.ONC.PN ---
Subjective Subjective Remarks Afebrile overnight. patient resting in bed. His catheter came out last night, so he did not get very good sleep. he is otherwise without complaint. passing gas. Objective Data Date Time Temp Pulse Resp B/P Pulse Ox O2 Delivery O2 Flow Rate FiO2 09/28/16 00:00 97.2 80 16 155/77 99 09/27/16 22:00 140/83 09/27/16 20:00 98.7 88 18 170/95 97 09/27/16 16:00 95.7 102 17 132/80 98 09/27/16 12:00 96.0 101 17 118/76 99 Result Diagram: 09/26/16 0552 09/26/16 0552 Administered Medications Medications (Trade) Dose Ordered Sig/Jose Manuel Route PRN Reason Start Time Stop Time Status Last Admin Dose Admin Potassium Chloride/Dextrose/ Sod Cl (D5-NS + KCl 20 Meq Inj) 1,000 ml @ 75 mls/hr [id number] IV 09/24/16 17:51 09/27/16 23:05 Acetaminophen/ Hydrocodone Bitart ([place] 5-325 Mg) 2 tab Q4H PRN PO PAIN SCALE 5 TO 10 09/24/16 18:00 09/28/16 05:50 Acetaminophen (Tylenol) 650 mg Q4H PRN PO Temperature > 101F 09/24/16 18:00 09/25/16 23:00 Alvimopan (Entereg) 12 mg BID PO 09/25/16 09:00 10/01/16 21:01 09/27/16 22:52 Pantoprazole Sodium (Protonix Inj) 40 mg DAILY IVP 09/25/16 09:00 09/25/16 08:49 Pantoprazole Sodium (Protonix) 40 mg DAILY PO 09/25/16 09:00 09/27/16 09:32 Ondansetron HCl (Zofran Inj) 4 mg Q6H PRN IV NAUSEA 09/24/16 18:00 09/26/16 11:09 Objective Remarks GENERAL: Middle aged male sitting up in bed, appears fatigued. SKIN: Warm and dry. HEAD: Normocephalic. EYES: No injection or drainage. NECK: Supple, trachea midline. CARDIOVASCULAR: Regular rate and rhythm RESPIRATORY: Breath sounds equal bilaterally. No accessory muscle use. GASTROINTESTINAL: Abdomen soft, mildly tender. colostomy bag with liquid stool. EXTREMITIES: No cyanosis NEUROLOGICAL: aox3 normal speech Assessment/Plan Problem List: (1) Colon cancer Status: Acute Plan: --Locally advanced colon cancer. --presented with abdominal pain and colovesical fistula. -- CT at the end of July showed a long segment of thickened sigmoid and underlying mass cannot be ruled out. --underwent exploratory laparotomy, resection of rectosigmoid and placement of a Baldomero pouch, colostomy and closure of bladder fistula on September 24. --was noted to have a large obstructing mass in the sigmoid colon with fistula to the bladder dome and also seeding of the peritoneum. 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 There is also tumor perforation noted. Tumor invades adjacent bladder and 14 out of 15 lymph nodes were positive. -- Pathologic stage T4b N2b MX. Assessment 66y/o male with colon cancer --presented to ED. CT ab/pelvis showed mass. exploratory laparotomy showed large tumor obstructing the sigmoid colon invading to the dome of the bladder. There was also a peritoneal seeding noted. --underwent resection of the rectosigmoid and colostomy placement as well as closure of the bladder fistula. h/o Right upper extremity venous thrombosis in 2008. Encephalitis. Heat stroke in 2003. Hernia repair in 2013. Recent colonoscopy. Plan 1. continue supportive care 2. once d/c follow up with oncology Attending Statement The exam, history, and the medical decision-making described in the above note were completed with the assistance of the mid-level provider. I reviewed and agree with the findings presented. I attest that I had a [id number] encounter with the patient on the same day, and personally performed and documented my assessment and findings in the medical record. Feeling better. Ambulating well. Tolerating po. is not at the bedside yet. Pt has questions regarding port placement which I answered. He really want to go home first and had port placement as outpt but his wants him to have it done amador. He will talk to his again. Will set up outpt f/u. Elda Bowen Sep 28, 2016 09:13 Vick Hernández MD Sep 28, 2016 12:46
--- NOTE | 2016-09-28 09:14 | HHI.FF ---
Face to Face Verification Diagnosis: (1) Colon cancer (2) Adrian-vesical fistula Physical Therapy Order: Evaluate and Treat, Improve ambulation, Strength and gait training I have seen patient Juan Alberto Wilkinson on 09/28/16. My clinical findings support the need for the requested home health care services because: Ltd mobility - disease progression Deconditioned w/ increased weakness Infection w/ risk of complications I certify that my clinical findings support that this patient is homebound because: Post-op weakness Unsteady gait/balance Need for psychosocial assistance Chris Cabrera MD Sep 28, 2016 09:14
[2016-09-28] MEDS: PANTOPRAZOLE SOD 40 MG DELAYED RELEASE TAB PO SCH (09:33)
[2016-09-28] MEDS: ALVIMOPAN 12 MG CAPSULE PO SCH ×2 (09:33→19:29)
[2016-09-28] MEDS: D5-NS + KCL 20 MEQ INJ 1,000 ML IV SCH (11:30)
[2016-09-28 12:00] VITALS: BP 134/78; PULSE 101; RESP 18; TEMP 97.1; O2SAT 98
[2016-09-28 16:00] VITALS: BP 107/70; PULSE 103; RESP 18; TEMP 97; O2SAT 98
[2016-09-28 20:00] VITALS: BP_SYST 119; BP_SYST 137; BP_DIAS 71; BP_DIAS 79; PULSE 100; PULSE 66; RESP 18; RESP 20; TEMP 99; O2SAT 100
[2016-09-29 00:28] VITALS: BP 134/75; PULSE 75; RESP 20; TEMP 97.2; O2SAT 95
[2016-09-29] MEDS: ACETAMINOPHEN/HYDROcodone 325 MG/5 MG TAB PO PRN (03:54)
[2016-09-29 08:00] VITALS: BP 145/78; PULSE 83; RESP 16; TEMP 97.3; O2SAT 98
[2016-09-29] MEDS: SODIUM CHLORIDE 0.9% FLUSH 5 ML FLUSH IVF SCH (08:46)
[2016-09-29] MEDS: PANTOPRAZOLE SOD 40 MG DELAYED RELEASE TAB PO SCH (08:46)
[2016-09-29] MEDS: PANTOPRAZOLE SODIUM 40 MG VIAL IVP SCH (08:46)
[2016-09-29] MEDS: ALVIMOPAN 12 MG CAPSULE PO SCH (08:46)
--- NOTE | 2016-09-29 09:49 | HHI.PR ---
Subjective Remarks C/R Surg POD # 5 afebrile, VSS UO good - clear KANG min stoma functioning Objective - Vital Signs Date Time Temp Pulse Resp B/P Pulse Ox O2 Delivery O2 Flow Rate FiO2 09/29/16 08:00 97.3 83 16 145/78 98 09/25/16 08:04 Nasal Cannula 2.00 Result Diagram: 09/26/16 0552 09/26/16 0552 Objective Remarks PE alert Abd - soft, wound dry, stoma clean/pink KANG less A/P Assessment and Plan Imp: OOB adv diet dc plans Chris Cabrera MD Sep 29, 2016 09:49
[2016-09-29] MEDS ORDERED: HYDR-3516 PO ×2 (09:52→10:26)
--- NOTE | 2016-09-29 10:27 | PD.ONC.PN ---
Subjective Subjective Remarks Afebrile overnight. patient hoping to go home soon. slept better last night. Objective Data Date Time Temp Pulse Resp B/P Pulse Ox O2 Delivery O2 Flow Rate FiO2 09/29/16 08:00 97.3 83 16 145/78 98 09/29/16 04:54 18 09/29/16 00:28 97.2 75 20 134/75 95 09/28/16 20:00 99.0 100 20 137/79 100 09/28/16 16:00 97.0 103 18 107/70 98 09/28/16 12:00 97.1 101 18 134/78 98 09/29/16 09/29/16 09/29/16 06:59 14:59 22:59 Intake Total 506 ml Output Total 1360 ml Balance -854 ml Result Diagram: 09/26/16 0552 09/26/16 0552 Administered Medications Medications (Trade) Dose Ordered Sig/Jose Manuel Route PRN Reason Start Time Stop Time Status Last Admin Dose Admin Potassium Chloride/Dextrose/ Sod Cl (D5-NS + KCl 20 Meq Inj) 1,000 ml @ 60 mls/hr [id number] IV 09/24/16 17:51 09/28/16 11:30 Acetaminophen/ Hydrocodone Bitart ([place] 5-325 Mg) 1 tab Q4H PRN PO PAIN SCALE 1 TO 4 09/24/16 18:00 09/29/16 10:02 Acetaminophen/ Hydrocodone Bitart ([place] 5-325 Mg) 2 tab Q4H PRN PO PAIN SCALE 5 TO 10 09/24/16 18:00 09/29/16 03:54 Acetaminophen (Tylenol) 650 mg Q4H PRN PO Temperature > 101F 09/24/16 18:00 09/25/16 23:00 Alvimopan (Entereg) 12 mg BID PO 09/25/16 09:00 10/01/16 21:01 09/29/16 08:46 Pantoprazole Sodium (Protonix Inj) 40 mg DAILY IVP 09/25/16 09:00 09/25/16 08:49 Pantoprazole Sodium (Protonix) 40 mg DAILY PO 09/25/16 09:00 09/29/16 08:46 Ondansetron HCl (Zofran Inj) 4 mg Q6H PRN IV NAUSEA 09/24/16 18:00 09/26/16 11:09 Objective Remarks GENERAL: Middle aged male upright in bed in nad. SKIN: Warm and dry. HEAD: Normocephalic. EYES: No injection or drainage. NECK: Supple, trachea midline. CARDIOVASCULAR: Regular rate and rhythm RESPIRATORY: Breath sounds equal bilaterally. No accessory muscle use. GASTROINTESTINAL: Abdomen soft, colostomy bag with liquid stool. mildly tender around incision sites GI gray bag with clear urine EXTREMITIES: No cyanosis NEUROLOGICAL: awake and alert, normal speech. Assessment/Plan Problem List: (1) Colon cancer Status: Acute Plan: --Locally advanced colon cancer. --presented with abdominal pain and colovesical fistula. -- CT at the end of July showed a long segment of thickened sigmoid and underlying mass cannot be ruled out. --underwent exploratory laparotomy, resection of rectosigmoid and placement of a Baldomero pouch, colostomy and closure of bladder fistula on September 24. --was noted to have a large obstructing mass in the sigmoid colon with fistula to the bladder dome and also seeding of the peritoneum. 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 There is also tumor perforation noted. Tumor invades adjacent bladder and 14 out of 15 lymph nodes were positive. -- Pathologic stage T4b N2b MX. Assessment 66y/o male with colon cancer --presented to ED. CT ab/pelvis showed mass. exploratory laparotomy showed large tumor obstructing the sigmoid colon invading to the dome of the bladder. There was also a peritoneal seeding noted. --underwent resection of the rectosigmoid and colostomy placement as well as closure of the bladder fistula. h/o Right upper extremity venous thrombosis in 2008. Encephalitis. Heat stroke in 2003. Hernia repair in 2013. Recent colonoscopy. Plan 1. follow up in clinic once discharged 2. supportive care Attending Statement The exam, history, and the medical decision-making described in the above note were completed with the assistance of the mid-level provider. I reviewed and agree with the findings presented. I attest that I had a [id number] encounter with the patient on the same day, and personally performed and documented my assessment and findings in the medical record. Eager to go home. at bedside and we discussed his conditions and plan. Pt is going to have port placement on . F/u oncology. Elda Bowen Sep 29, 2016 10:27 Vick Hernández MD Sep 29, 2016 12:11
--- NOTE | 2016-09-29 11:58 | HHI.FF ---
Face to Face Verification Diagnosis: (1) [place]-vesical fistula (2) Colon cancer Physical Therapy Order: Evaluate and Treat, Improve ambulation, Strength and gait training Home Health Nursing Order: Medical education Nursing assessment with vital signs Instructions: --ostomy care and teaching I have seen patient Juan Alberto Wilkinosn on 09/29/16. My clinical findings support the need for the requested home health care services because: Ltd mobility - disease progression Deconditioned w/ increased weakness Infection w/ risk of complications I certify that my clinical findings support that this patient is homebound because: Post-op weakness Unsteady gait/balance Need for psychosocial assistance Elda Bowen Sep 29, 2016 11:58 Vick Hernández MD Sep 29, 2016 12:09
[2016-09-29 12:00] VITALS: BP 110/72; PULSE 109; RESP 16; TEMP 96.6; O2SAT 100
[2016-09-29] MEDS: ACETAMINOPHEN 325 MG TAB PO PRN (14:52)
== END 2016-09-29 16:08 | disposition home health service (06) | DRG 330 ==
LOC: HSDI 09-24 11:53 → HCIS 09-24 20:00 → N07B 09-25 22:54
PROVIDERS: ADMIT Colon & Rectal Surgery; ATTEND Colon & Rectal Surgery
PROC: 0DBN0ZZ Excision of Sigmoid Colon, Open Approach (ICD-10-PCS; 2016-09-24)
PROC: 07BC0ZX Excision of Pelvis Lymphatic, Open Approach, Diagnostic (ICD-10-PCS; 2016-09-24)
PROC: 0D1N0Z4 Bypass Sigmoid Colon to Cutaneous, Open Approach (ICD-10-PCS; 2016-09-24)
PROC: 0WUF07Z Supplement Abdominal Wall with Autologous Tissue Substitute, Open Approach (ICD-10-PCS; 2016-09-24)
PROC: 0WJP0ZZ Inspection of Gastrointestinal Tract, Open Approach (ICD-10-PCS; 2016-09-24)
PROC: 0WJG0ZZ Inspection of Peritoneal Cavity, Open Approach (ICD-10-PCS; 2016-09-24)
PROC: 0WJJ0ZZ Inspection of Pelvic Cavity, Open Approach (ICD-10-PCS; 2016-09-24)
PROC: 0TBB0ZZ Excision of Bladder, Open Approach (ICD-10-PCS; 2016-09-24)
PROC: 0TQB0ZZ Repair Bladder, Open Approach (ICD-10-PCS; 2016-09-24)
PROC: 0DBP0ZZ Excision of Rectum, Open Approach (ICD-10-PCS; principal; 2016-09-24 15:25)
DX: C18.7 Malignant neoplasm of sigmoid colon (principal); K56.69 Other intestinal obstruction; C78.6 Secondary malignant neoplasm of retroperitoneum and peritoneum; C79.11 Secondary malignant neoplasm of bladder; N32.1 Vesicointestinal fistula; Z86.718 Personal history of other venous thrombosis and embolism; Z86.61 Personal history of infections of the central nervous system
CPT/HCPCS: 80048; 85025; 86850; 86900; 86901; 88305; 88307; 88309; 94150; C9113; J0131; J0690; J1170; J2250; J2270; J2370; J2405; J2710; J2765; J3010; J3480; J7120

== ENCOUNTER 2016-09-17 14:55 | Inpatient (IN) | payer MEDICARE ==
[~2016-09-17] VITALS: Ht 177.8 cm; Wt 80.0 kg
[2016-09-17 14:59] VITALS: BP 156/87; PULSE 65; RESP 14; TEMP 98.4; O2SAT 95
--- NOTE | 2016-09-17 16:06 | PD ---
HPI Chief Complaint: Medical Clearance Time Seen by Provider: 16:05 Travel History International Travel<30 days: No Contact w/Intl Traveler<30days: No Traveled to known affect area: No History of Present Illness HPI 66-year-old male came to the emergency room with history of hematuria,colon mass which possibly is cancer and possible interval development of colovesicular fistula. His is giving most of the history. Patient was seen in the emergency room almost one month ago for hematuria. At that time he was diagnosed with diverticulitis and was asked to be followed up by Dr. Cabrera. He did see Dr. Cabrera in his office where a colon/rectal mass was identified. He was unable to perform a colonoscopy given the bulk of the mass. As per the Dr. Cabrera was 99% positive he said that it was malignancy. He wanted to operate and take a foot of his colon out and the surgery was supposed to be next Friday. Patient had come in today for preop testing. However he says that he has been passing gas through his penis at this point when he tries to urinate. He also has been having fever and increasing pain. He spoke with Dr. Cabrera on the phone as well as saw his primary care. They both recommended that he should go to the emergency room. And that is why he is here now. Patient currently is on day #3 of ciprofloxacin and Flagyl second time around. [facility] Past Medical History Narrative Medical List of his past medical, surgical, social and family history is reviewed from the nursing note. Blood Disorders: Yes (HOSPITALIZED FROM 06/12/07 - 06/18/07 FOR BLOOD CLOT TO RIGHT UPPER ARM) Cancer: No Diabetes: No Diminished Hearing: No Hepatitis: No Hiatal Hernia: No Hypertension: No Inguinal Hernia: Yes Thyroid Disease: No Past Surgical History Pacemaker: No Other Surgery: No Social History Alcohol Use: Yes (2 BEERS PER NIGHT) Tobacco Use: No Substance Use: No Allergies-Medications (Allergen,Severity, Reaction): Coded Allergies: No Known Allergies (Verified , 09/17/16) Comments List of his allergies reviewed from the nursing note. Reported Meds & Prescriptions Reported Meds & Active Scripts Active Reported Cipro (Ciprofloxacin HCl) 500 Mg Tab 500 Mg PO BID Narrative Medication List of his home medications reviewed from the nursing note. Review of Systems Except as stated in HPI: all other systems reviewed are Neg Physical Exam Narrative GENERAL: Awake, alert, mild distress, anxious SKIN: Focused skin assessment warm/dry. HEAD: Atraumatic. Normocephalic. EYES: Pupils equal and round. No scleral icterus. No injection or drainage. ENT: No nasal bleeding or discharge. Mucous membranes pink and moist. NECK: Trachea midline. No JVD. CARDIOVASCULAR: Regular rate and rhythm. No murmur appreciated. RESPIRATORY: No accessory muscle use. Clear to auscultation. Breath sounds equal bilaterally. GASTROINTESTINAL: Abdomen soft, non-tender, nondistended. Hepatic and splenic margins not palpable. MUSCULOSKELETAL: No obvious deformities. No clubbing. No cyanosis. No edema. NEUROLOGICAL: Awake and alert. No obvious cranial nerve deficits. Motor grossly within normal limits. Normal speech. PSYCHIATRIC: Appropriate mood and affect; insight and judgment normal. Data Data Last Documented VS Vital Signs Date Time Temp Pulse Resp B/P Pulse Ox O2 Delivery O2 Flow Rate FiO2 09/17/16 14:59 98.4 65 14 156/87 95 Orders Blood Culture (09/17/16 16:12) Piperacil-Tazo 4.5 Gm Premix (Zosyn 4.5 (09/17/16 16:15) Admit Order (Ed Use Only) (09/17/16 17:24) Admit To Inpatient (09/17/16 ) Vital Signs (Adult) ESTRELLA.Q4H (09/17/16 17:23) Intake + Output 06,14,22 (09/17/16 17:23) Sodium Chlor 0.9% 1000 Ml Inj (Ns 1000 M (09/17/16 17:23) Sodium Chloride 0.9% Flush (Ns Flush) (09/17/16 21:00) Inpatient Certification (09/17/16 ) [facility] Medical Decision Making Medical Screen Exam Complete: Yes Emergency Medical Condition: Yes Medical Record Reviewed: Yes Differential Diagnosis Colon cancer, rectal cancer, colovesicular fistula Narrative Course 4:45 PM patient had preop test done this morning which included CBC, BMP and UA. Those results myself. The UA is grossly positive. I started him on IV Zosyn. I will also ordered a CT scan of the abdomen and pelvis. Awaiting for the scan to be done and resulted. In the meanwhile I put a call out for Dr. Cabrera since he is deeply involved with this patient's care. He is not production team advisor for us and his service told us that his production team advisorpersonal property assessor would call us back. Also waiting for the hospitalist to call back for admission. 5:[address] Cabrera just call back and he will come down to see the patient. Patient has been admitted to the hospitalist. Procedures EKG Prior to Arrival: No Physician Communication Physician Communication Dr. 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
[2016-09-17] MEDS ORDERED: PIPERACIL-TAZO 4.5 GM PREMIX 100 ML IV ONE (16:15)
[2016-09-17] MEDS ORDERED: CIPR-9 PO (17:04)
[2016-09-17] MEDS ORDERED: SODIUM CHLOR 0.9% 1000 ML INJ 1,000 ML IV ONE (17:30)
[2016-09-17 20:10] VITALS: BP 145/82; PULSE 91; RESP 18; TEMP 98.1; O2SAT 100
[2016-09-17] MEDS: SODIUM CHLOR 0.9% 1000 ML INJ 1,000 ML IV SCH (20:25)
[2016-09-17] MEDS: SODIUM CHLORIDE 0.9% FLUSH 10 ML FLUSH IV FLUSH SCH (21:11)
[2016-09-17 23:32] VITALS: BP 137/78; PULSE 78; RESP 18; TEMP 98; O2SAT 98
--- NOTE | 2016-09-17 23:49 | HHI.HP ---
HPI Service [facility] Primary Care Physician Non-Staff Admission Diagnosis colovesical fistula Diagnoses: Travel History International Travel<30 Days: No Contact w/Intl Traveler <30 Da: No Traveled to Known Affected Are: No History of Present Illness History from patient, ER physician communication, interview of medical records. Patient reported that starting Friday, he has been urinating what looks like red fibers coming out. He reports that the second time he urinated later Friday, it was no longer red but this time there was some whitish yellowish mucus discharge through his urine. He reports that similar things had happened about 3 weeks ago or so to. He came to our hospital then and he has had tests done and discharged with an outpatient appointment to colorectal surgeon Dr. Cabrera. He reports that he had colonoscopy as an outpatient and at that time, the camera was not able to be passed. Dr. Cabrera therefore had told him to follow up with the radiology department to get the fastest treatment here for rule out ACS and coronary tach. friday- air bubles coming out from penile urethra area called dr rios office placed on antibiotics Cipro since then last night , reports he was c/o cramping to his . The called primary care office/[place] sent [facility] who sent him here had chills at night couple of times no nausea. no vomiting, had light diarrhea brown stool havent eaten anything for past several weeks due to news of cancer Review of Systems Except as stated in HPI: all other systems reviewed are Neg Past Family Social History Past Medical History colon CA - diagnosed a few weeks ago [address] RUE dvt 2009 encephalitis 2006 heat stroke Past Surgical History hernia repair 2014 colonoscopy Allergies: Coded Allergies: No Known Allergies (Verified , 09/17/16) Family History mother- dm Social History no smoking 2 beers a day at dinner time no drugs Physical Exam Vital Signs Vital Signs Date Time Temp Pulse Resp B/P Pulse Ox O2 Delivery O2 Flow Rate FiO2 09/17/16 23:32 98.0 78 18 137/78 98 Room Air 09/17/16 20:10 98.1 91 18 145/82 100 Room Air 09/17/16 14:59 98.4 65 14 156/87 95 Physical Exam GENERAL: This is a well-nourished, well-developed patient, in no apparent distress. SKIN: No rashes, ecchymoses or lesions. Cool and dry. HEAD: Atraumatic. Normocephalic. No temporal or scalp tenderness. EYES: No scleral icterus. No injection or drainage. ENT: Nose without bleeding, purulent drainage or septal hematoma. Airway patent. NECK: Trachea midline. No JVD CARDIOVASCULAR:r tachhcardic, regular--- RESPIRATORY: bilaterally decreased air entry, no erwin rales GASTROINTESTINAL: Abdomen soft, non-tender, nondistended. No guarding. MUSCULOSKELETAL: Extremities without clubbing, cyanosis, or edema. NEURO: awake, alert, grossly normal cp Laboratory Date/Time Procedure Status Source Growth 09/17/16 16:29 Aerobic Blood Culture Received Blood Peripheral Pending 09/17/16 16:29 Anaerobic Blood Culture Received Blood Peripheral Pending Assessment and Plan Assessment and Plan Impression: Hematuria recotvesicle fistula UTI colon CA - diagnosed a few weeks ago [address] RUE dvt 2009 encephalitis 2006 heat stroke hx Plan: pt was seen by his colorectal surgeon- will follow official consult note for now, iv fluids, full diet liquid, monitor for symptoms hematuria is resolving so far continue zosyn for antibiotics coverage will follow urine cx results dvt prophylaxis with SCD / ambulation Discussed Condition With patient, ER MD, nursing staff Physician Certification 2 Midnight Certification Type: Admission for Inpatient Services Order for Inpatient Services The services are ordered in accordance with Medicare regulations or non- Medicare payer requirements, as applicable. In the case of services not specified as inpatient-only, they are appropriately provided as inpatient services in accordance with the 2-midnight benchmark. Estimated LOS (days): 2 days is the estimated time the patient will need to remain in the hospital, assuming treatment plan goals are met and no additional complications. Post-Hospital Plan: Home Cynthia Douglas MD Sep 17, 2016 23:49
[2016-09-18] MEDS ORDERED: TEMAZEPAM 15 MG CAP PO PRN
[2016-09-18] MEDS: SODIUM CHLOR 0.9% 1000 ML INJ 1,000 ML IV SCH ×2 (00:23→12:24)
[2016-09-18] MEDS: PIPERACIL-TAZO 4.5 GM PREMIX 100 ML IV SCH ×3 (00:39→14:00)
[2016-09-18 01:30] VITALS: BP 177/90; PULSE 82; RESP 20; TEMP 97.5; O2SAT 100
[2016-09-18 04:00] VITALS: BP 133/75; PULSE 76; RESP 20; TEMP 98; O2SAT 98
[2016-09-18 08:12] VITALS: BP 138/74; PULSE 79; RESP 17; TEMP 97.9; O2SAT 98
--- NOTE | 2016-09-18 08:26 | HHI.PR ---
Subjective Remarks C/R Surg afebrile, VSS yoiding, min air +BM summer PO Objective - Vital Signs Date Time Temp Pulse Resp B/P Pulse Ox O2 Delivery O2 Flow Rate FiO2 09/18/16 08:12 97.9 79 17 138/74 98 09/17/16 23:32 Room Air Objective Remarks PE alert Abd - soft, min tympany, non-tender A/P Assessment and Plan Imp: stable, adv diet dc plans - elective surgery for Friday - cont PO ab's Chris Cabrera MD Sep 18, 2016 08:26
[2016-09-18] MEDS: SODIUM CHLORIDE 0.9% FLUSH 10 ML FLUSH IV FLUSH SCH (09:25)
--- NOTE | 2016-09-18 09:50 | HHI.DCPOC ---
Discharge Care Plan Diagnosis: (1) Colon cancer (2) UTI (urinary tract infection) (3) [place]-vesical fistula Goals to Promote Your Health * To prevent worsening of your condition and complications * To maintain your health at the optimal level Directions to Meet Your Goals Take your medications as prescribed Follow your dietary instruction Follow activity as directed Keep your appointments as scheduled Take your immunizations and boosters as scheduled If your symptoms worsen call your PCP, if no PCP go to Urgent Care Center or Emergency Room Smoking is Dangerous to Your Health. Avoid second hand smoke Call the 24-hour hour crisis hotline for domestic abuse at Kady Helton MD Sep 18, 2016 09:50
--- NOTE | 2016-09-18 09:52 | HHI.DS ---
Discharge Summary Admission Date Sep 17, 2016 at 17:26 Discharge Date: Sep 18, 2016 Admitting Diagnosis colovesical fistula (1) [place]-vesical fistula ICD Code: N32.1 Diagnosis: Principal (2) Colon cancer ICD Code: C18.9 Diagnosis: Principal (3) UTI (urinary tract infection) ICD Code: N39.0 Diagnosis: Principal (4) Hematuria ICD Code: R31.9 Diagnosis: Principal Procedures none Brief History - From Admission Patient reported that starting Friday, he has been urinating what looks like red fibers coming out. He reports that the second time he urinated later Friday, it was no longer red but this time there was some whitish yellowish mucus discharge through his urine. He reports that similar things had happened about 3 weeks ago or so to. He came to our hospital then and he has had tests done and discharged with an outpatient appointment to colorectal surgeon Dr. Cabrera. He reports that he had colonoscopy as an outpatient and at that time, the camera was not able to be passed. Dr. Cabrera therefore had told him to follow up with the radiology department to get the fastest treatment here for rule out ACS and coronary tach. See history of present illness for further information. PE at Discharge GENERAL: in NAD SKIN: Warm and dry. HEAD: Normocephalic. EYES: No scleral icterus. No injection or drainage. NECK: Supple, trachea midline. No JVD or lymphadenopathy. CARDIOVASCULAR: Regular rate and rhythm without murmurs, gallops, or rubs. RESPIRATORY: Breath sounds equal bilaterally. No accessory muscle use. GASTROINTESTINAL: Abdomen soft, non-tender, nondistended. MUSCULOSKELETAL: No cyanosis, or edema. BACK: Nontender without obvious deformity. No CVA tenderness. Pt update on day of discharge Follow-up for rectovesicular fistula. Patient stated he is doing well. Deny any abdominal pain. Deny nausea or vomiting. Patient stated that he has not had an appetite for the past 4 weeks. He remains afebrile. 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 Patient was seen by Dr. Cabrera in which he recommended elective surgery for Friday and to continue his oral antibiotics. Patient tolerated oral intake while hospitalized. Patient already had 8 more days of Cipro. Antibiotic choice based on last sensitivity, which was pansensitive. Pt Condition on Discharge: Stable Discharge Disposition: Discharge Home Discharge Time: <= 30 minutes Discharge Instructions DIET: Follow Instructions for: As Tolerated, No Restrictions Activities you can perform: Regular-No Restrictions Follow up Referrals: Appointment for Follow Up - 1 Week with Chris Cabrera MD PCP Follow-up - 1 Week Continued Medications: Ciprofloxacin (Cipro) 500 Mg Tab 500 MG PO BID Infection #20 Ref 0 TAB Kady Helton MD Sep 18, 2016 09:52
[2016-09-18 12:15] VITALS: BP 126/78; PULSE 99; RESP 17; TEMP 97.9; O2SAT 100
== END 2016-09-18 15:49 | disposition home or self-care (01) | DRG 699 ==
LOC: NEPC 14:55 → NEDA 17:26 → N05A 09-18 01:30
PROVIDERS: ADMIT Family Medicine; ATTEND Family Medicine
DX: N32.1 Vesicointestinal fistula (principal); C18.7 Malignant neoplasm of sigmoid colon; N39.0 Urinary tract infection, site not specified; R31.9 Hematuria, unspecified; Z86.718 Personal history of other venous thrombosis and embolism
CPT/HCPCS: 87040; J2543; J7030

== ENCOUNTER → 2016-09-17 | Outpatient (CLI) | payer MEDICARE ==
[~2016-09-17] MED LIST changes: +CIPR-9 PO; +METR-1 PO; -Z.0.NO CURRENT MEDS
[2016-09-17 09:24] LABS: AUTOMATED NEUTROPHIL # 4.6 TH/MM3 (1.8-7.7); BASOPHIL % 0.3 % (0.0-2.0); EOSINOPHIL # 0.1 TH/MM3 (0-0.4); EOSINOPHIL % 1.4 % (0.0-4.0); HEMATOCRIT 39.3 % (39.0-51.0); HEMO FLAGS DIFF FINAL; LYMPHOCYTE # 0.6 TH/MM3 (1.0-4.8); MEAN CELL VOLUME 89.9 FL (80.0-100.0); MEAN CORPUSCULAR HGB CONC 33.3 % (32.0-36.0); MONO % 8.9 % (0.0-8.0); NEUT % 78.4 % (16.0-70.0); PLATELET COUNT 289 TH/MM3 (150-450); RED BLOOD COUNT 4.37 MIL/MM3 (4.50-5.90); RED CELL DISTRIBUTION WIDTH 14.2 % (11.6-17.2); WHITE BLOOD COUNT 5.9 TH/MM3 (4.0-11.0)
[2016-09-17 09:34] LABS: APTT (PATIENT) 27.7 SEC (24.3-30.1); INTERNATIONAL NORMALIZED RATIO 0.9 RATIO; PROTHROMBIN TIME - PATIENT 10.3 SEC (9.8-11.6)
[2016-09-17 09:49] LABS: ANION GAP 8 MEQ/L (5-15); BICARBONATE 26.9 MEQ/L (21.0-32.0); BLOOD UREA NITROGEN 8 MG/DL (7-18); CHLORIDE 104 MEQ/L (98-107); GLUCOSE,FASTING 108 MG/DL (74-99); POTASSIUM 3.8 MEQ/L (3.5-5.1); SODIUM (NA) 139 MEQ/L (136-145)
[2016-09-17 11:34] LABS: BACTERIA, URINE FEW /hpf; BLOOD, URINE MOD (NEG); COMMENT (UR) CULTURE INDICATED; CULTURE IF INDICATED CULTURE INDICATED; GLUCOSE,URINE NEG (NEG); KETONE, URINE NEG (NEG); MUCUS URINE FEW /lpf (OCC); NITRITE,URINE NEG (NEG); PH, URINE 5.5 (5.0-8.5); URINE COLOR YELLOW (YELLW/STRAW)
[2016-09-17 11:38] LABS: ALT (GPT) 19 U/L (12-78); AST (GOT) 19 U/L (15-37); GLOMERULAR FILTRATION RATE 65 ML/MIN (>89)
[2016-09-17 12:04] LABS: ALKALINE PHOSPHATASE 69 U/L (45-117); TOTAL BILIRUBIN ADULT 0.6 MG/DL (0.2-1.0)
--- NOTE | 2016-09-18 10:01 | EKG ---
Date Performed: 09/17/2016 Time Performed: 08:43:33 PTAGE: 66 years EKG: Sinus rhythm MARKED LEFT AXIS DEVIATION POSSIBLE RIGHT VENTRICULAR CONDUCTION DELAY ABNORMAL ECG Since PREVIOUS TRACING , no significant change noted PREVIOUS TRACIN02/16/2000 21.17 DOCTOR: Emory Mar Interpretating Date/Time 09/18/2016 10:00:08
== END ==
LOC: CPRE 08:16
PROVIDERS: ATTEND Colon & Rectal Surgery
DX: Z01.812 Encounter for preprocedural laboratory examination (principal); Z01.810 Encounter for preprocedural cardiovascular examination; R19.04 Left lower quadrant abdominal swelling, mass and lump; R94.31 Abnormal electrocardiogram [ECG] [EKG]; R82.99 Other abnormal findings in urine
CPT/HCPCS: 36415; 80053; 81001; 82378; 85025; 85610; 85730; 87086; 93005

== ENCOUNTER 2016-10-03 06:25 | Day surgery (SDC) | payer MEDICARE ==
[~2016-10-03] VITALS: Ht 177.8 cm; Wt 76.0 kg
[~2016-10-03 06:25] MED LIST changes: -CIPR-9 PO; +HYDR-3516 PO; -METR-1 PO
[2016-10-03] MEDS ORDERED: TRAZ50TA12 PO (06:44)
[2016-10-03] MEDS ORDERED: BUSP10TA PO (06:44)
[2016-10-03 06:52] VITALS: BP 142/78; PULSE 103; RESP 18; TEMP 98.7; O2SAT 97
[2016-10-03] MEDS ORDERED: ceFAZolin 2 GM PREMIX 50 ML - implanted port/tunneled catheter insertion IV SCH (07:15)
[2016-10-03] MEDS ORDERED: POVIDONE IODINE 5% (ANTISEPSIS KIT) 4 APPLICATIONS EACH NARE SCH (07:15)
[2016-10-03] MEDS ORDERED: SODIUM CHLORIDE 0.9% 1000 ML IV SCH (07:15)
[2016-10-03] MEDS ORDERED: CHLORHEXIDINE GLUCONATE 2 % 1 PACK (2 CLOTHS) TOPICAL SCH (07:15)
[2016-10-03] MEDS ORDERED: VANCOMYCIN 1000 MG/NS 250 ML - implanted port/tunneled catheter IV SCH ×2 (07:15)
[2016-10-03 07:31] LABS: APTT (PATIENT) 27.4 SEC (24.3-30.1); INTERNATIONAL NORMALIZED RATIO 0.9 RATIO; PROTHROMBIN TIME - PATIENT 10.2 SEC (9.8-11.6)
[2016-10-03] MEDS ORDERED: LIDOCAINE 1%/EPINEPHrine 1:100,000 SOLN 20 ML VIAL ONE (07:46)
[2016-10-03] MEDS ORDERED: fentaNYL CITRATE 250 MCG/5 ML AMP ONE (07:51)
[2016-10-03] MEDS ORDERED: MIDAZOLAM HCL 2 MG/2 ML VIAL ONE (07:51)
[2016-10-03] MEDS ORDERED: diphenhydrAMINE HCL 50 MG/ML VIAL ONE (08:23)
--- NOTE | 2016-10-03 08:53 | PD.RAD ---
Post Procedure Progress Note Pre Procedure Diagnosis: (1) Colon cancer Post Procedure Diagnosis: (1) Colon cancer Procedure Date: Oct 03, 2016 Supervising Radiologist: Ba Perez Proceduralist/Assist: Francisco Javier Sam RT(R), RT Jeison(R) Anesthesia: Local, Analgesia, Conscious Sedation Plan of Activity Patient to Unit: ROPU Patient Condition: Good See PACS Report for procedural detail/treatment Central Venous Access Device Procedure 1 Right Internal Jugular Infusaport Placement single lumen Macedonian: 8 Ba Perez MD Oct 03, 2016 08:53
[2016-10-03 08:55] VITALS: BP 125/75; PULSE 94; RESP 16; TEMP 97.9; O2SAT 95
[2016-10-03] MEDS ORDERED: SODIUM CHLORIDE 0.9% FLUSH 10 ML FLUSH IVF PRN (09:00)
[2016-10-03 09:10] VITALS: BP 105/52; PULSE 89; RESP 16; O2SAT 96
[2016-10-03 09:25] VITALS: BP 113/60; PULSE 88; RESP 16; O2SAT 98
[2016-10-03 10:00] VITALS: BP 105/65; PULSE 86; RESP 16; O2SAT 98
[2016-10-03 10:30] VITALS: BP 112/64; PULSE 78; RESP 16; O2SAT 98
--- NOTE | 2016-10-03 16:09 | RADRPT ---
EXAM DATE/TIME: 10/03/2016 08:10 [place] COMPARISON: No previous studies available for comparison. INDICATIONS : Patient presents with colon cancer in need of port placement for chemotherapy treatment. MEDICAL HISTORY : RUE DVT hx Encephalitis Colon and bladder cancer SURGICAL HISTORY : Exp. lap Colon resection Hortmann pouch Colostomy Inguinal hernia repair ENCOUNTER: Initial ACUITY: 1 week PAIN SCORE: 0/10 LOCATION: n/a FLUORO TIME: 0.5 minutes IMAGE SERIES: 1 SEDATION TIME: 45 minutes ACCESS: Right internal jugular vein SEDATION: 1.) 4 mg midazolam (Versed) IV 2.) 250 mcg fentanyl (Sublimaze) IV 3.) 50mg Benadryl IV Prophylactic antibiotics were administered with appropriate pre-procedure timing. Vancomycin within 2 hours of procedure, Ancef (or alternative) within 1 hour of procedure. DEVICE: 1. [address] [place] single lumen Smart port CT w/ vortex PROCEDURE : 1. Continuous pulse oximetry and EKG monitoring. 2. Intravenous conscious sedation. 3. Ultrasound guidance for venous access. 4. Fluoroscopic guided implantable central venous port placement. The patient was placed supine. The neck was prepped in sterile fashion. Full sterile technique was u sed, including cap, mask, sterile gloves and gown, and a large sterile sheet. Hand hygiene and 2% ch lorhexidine Betadine was utilized per protocol for cutaneous antisepsis with appropriate dry time for site. The skin and subcutaneous tissues were infiltrated with local anesthetic solution. Under direct ultrasound guidance, central venous access was accomplished in the targeted vessel. The ultrasound images depicting access guidance were stored and saved to PACS for permanent record. A s ubcutaneous pocket was created using blunt dissection. The port was introduced to the pocket. The c atheter tubing was fed through a subcutaneous tunnel to the venotomy site. The catheter tubing was c ut to a suitable length and then was introduced through a valved Peel-Away sheath and positioned with catheter tubing tip at the cavo-atrial junction level. The pocket incision was closed with subcutic ular Vicryl suture. Steri-Strips were applied. The port was flushed and locked with heparin solutio n per protocol. Sterile dressing was applied to the site. The patient tolerated the procedure well. Conscious sedation was performed with the prescribed dosages and duration as above in the presence of an independent trained radiology nurse to assist in the monitoring of the patient. EKG and oximetry remained stable throughout the procedure. The patient tolerated the procedure well and there were no complications. The patient was sent to post anesthesia recovery in stable condition. CONCLUSION: Uncomplicated ultrasound and fluoroscopic guided implanted central venous port catheter placement as described in detail above. An 8 [place]onese Power port was placed. Ba Perez MD on October 03, 2016 at 16:08 Board Certified Radiologist. This report was verified electronically.
== END 2016-10-03 11:30 | disposition home or self-care (01) ==
LOC: HROP 06:25 → HRIP 06:26 → HROP 11:30
PROVIDERS: ATTEND Internal Medicine Hematology & Oncology
DX: C18.9 Malignant neoplasm of colon, unspecified (principal); Z85.51 Personal history of malignant neoplasm of bladder; Z86.718 Personal history of other venous thrombosis and embolism; Z01.818 Encounter for other preprocedural examination
CPT/HCPCS: 36561; 76937; 77001; 85610; 85730; 99152; 99153; C1788; J0690; J1200; J1642; J2250; J3010; J3370; J7030; J7050

== ENCOUNTER 2017-07-28 16:19 | Observation (INO) | payer MEDICARE ==
[~2017-07-28] VITALS: Ht 177.8 cm; Wt 59.0 kg
[~2017-07-28 16:19] MED LIST changes: +BUSP10TA PO; +TRAZ50TA12 PO
[2017-07-28 16:22] VITALS: BP 139/68; PULSE 85; RESP 16; TEMP 97.7; O2SAT 98
[2017-07-28] MEDS ORDERED: CLON1TAB PO (16:44)
[2017-07-28] MEDS ORDERED: ALUM320S2 PO (16:44)
[2017-07-28] MEDS ORDERED: METR-1 PO (16:44)
[2017-07-28] MEDS ORDERED: TRAZ100T10 PO (16:44)
[2017-07-28] MEDS ORDERED: PROC10TA PO (16:44)
[2017-07-28] MEDS ORDERED: PROM5SUP2 RECTAL (16:44)
[2017-07-28] MEDS ORDERED: CELE10TA PO (16:44)
[2017-07-28] MEDS ORDERED: DEXA4TAB PO (16:44)
[2017-07-28] MEDS ORDERED: LOMO2.5T PO (16:44)
[2017-07-28] MEDS ORDERED: SERT-132 PO (16:44)
[2017-07-28] MEDS ORDERED: XARE20TA PO (16:44)
[2017-07-28] MEDS ORDERED: SODIUM CHLOR 0.9% 1000 ML INJ 1,000 ML IV SCH (16:55)
[2017-07-28] MEDS ORDERED: SODIUM CHLORIDE 0.9% FLUSH 10 ML FLUSH IV FLUSH PRN ×2 (17:00→20:00)
--- NOTE | 2017-07-28 17:23 | PD ---
HPI Chief Complaint: Pain: Acute or Chronic Time Seen by Provider: 16:29 Travel History International Travel<30 days: No Contact w/Intl Traveler<30days: No Traveled to known affect area: No History of Present Illness HPI This is an unfortunate 67-year-old male with a history of subtotal colectomy secondary to metastatic colon cancer who has missed his last a few chemotherapy cycle secondary to fatigue and poor functioning. He presents emergency department with his for evaluation of fatigue abdominal discomfort, decreased stool output from colostomy dark urine and decreased p.o. intake over the past few weeks. His states that these of the reasons why his chemotherapy is not up-to-date. She is also noticed some prolapse of the colostomy as well. No fevers no cough no congestion. His daughter states that the patient has not really talked much in 3 months either. States he is just getting more rundown. The patient does not volunteer much of his history in fact does not say anything to me. PFSH Past Medical History Hx Anticoagulant Therapy: Yes (XARELTO) Blood Disorders: Yes (HOSPITALIZED FROM 06/12/07 - 06/18/07 FOR BLOOD CLOT TO RIGHT UPPER ARM) Depression: Yes Cancer: Yes (COLON AND BLADDER CA) Cardiovascular Problems: No Chemotherapy: Yes Diabetes: No Diminished Hearing: No Endocrine: No Gastrointestinal Disorders: Yes Genitourinary: No Hepatitis: No Hiatal Hernia: No Hypertension: No Immune Disorder: No Inguinal Hernia: Yes Musculoskeletal: No Neurologic: No Psychiatric: Yes (DEPRESSION) Reproductive: No Respiratory: No Thyroid Disease: No Influenza Vaccination: Yes ?: Not Past Surgical History Abdominal Surgery: Yes (INGUINAL HERNIA , COLON RESECTION COLOSTOMY) AICD: No Cardiac Surgery: No Ear Surgery: No Endocrine Surgery: No Eye Surgery: No Genitourinary Surgery: No Gynecologic Surgery: No Joint Replacement: No Oral Surgery: No Pacemaker: No Thoracic Surgery: No Other Surgery: No Social History Alcohol Use: No (NOT SINCE JUNE) Tobacco Use: No Substance Use: No Allergies-Medications (Allergen,Severity, Reaction): Coded Allergies: No Known Allergies (Verified Adverse Reaction, Unknown, 07/28/17) Reported Meds & Prescriptions Reported Meds & Active Scripts Active Reported Xarelto (Rivaroxaban) 20 Mg Tab 20 Mg PO DAILY Trazodone (Trazodone HCl) 100 Mg Tablet 100 Mg PO HS Sertraline (Sertraline HCl) 50 Mg Tab 50 Mg PO DAILY Promethazine Supp (Promethazine HCl) 12.5 Mg Supp 12.5 Mg RECTAL Q4H PRN Prochlorperazine Maleate 10 Mg Tab 10 Mg PO Q6H PRN Lomotil (Diphenoxylate-Atropine) 2.5-0.025 Mg Tab 1 Tab PO Q6H PRN Flagyl (Metronidazole) 500 Mg Tab 500 Mg PO TID Dexamethasone 4 Mg Tab 4 Mg PO DAILY Clonazepam 1 Mg Tab 1 Mg PO TID Aluminum Hydroxide Liq Gel (Aluminum Hydroxide) 320 Mg/5 Ml Susp 10 Ml PO Q4H PRN Take after meals and at bedtime. Maximum of 3,840 mg (60 ml)/24 hrs. Celexa (Citalopram Hydrobromide) 10 Mg Tab 10 Mg PO DAILY Review of Systems Except as stated in HPI: all other systems reviewed are Neg Physical Exam Narrative GENERAL: Well-developed, thin and under nourished 67-year-old male who appears fatigued. SKIN: Focused skin assessment warm/dry. HEAD: Atraumatic. Normocephalic. There is some minimal temporal wasting EYES: Pupils equal and round. No scleral icterus. No injection or drainage. ENT: No nasal bleeding or discharge. Mucous membranes pink and moist. NECK: Trachea midline. No JVD. CARDIOVASCULAR: Regular rate and rhythm. No murmur appreciated. RESPIRATORY: No accessory muscle use. Clear to auscultation. Breath sounds equal bilaterally. GASTROINTESTINAL: Abdomen is soft albeit with some voluntary guarding, reduced bowel sounds, left-sided colostomy is protruding about 2 cm, no signs of ischemia, no output in the colostomy bag. There is no rebound no percussive tenderness. MUSCULOSKELETAL: No obvious deformities. No clubbing. No cyanosis. No edema. NEUROLOGICAL: Awake and alert. No obvious cranial nerve deficits. Motor grossly within normal limits. Normal speech. PSYCHIATRIC: Appropriate mood and affect; insight and judgment normal. Data Data Last Documented VS Vital Signs Date Time Temp Pulse Resp B/P (MAP) Pulse Ox O2 Delivery O2 Flow Rate FiO2 07/28/17 19:04 88 26 171/86 (114) 100 Room Air 07/28/17 16:22 97.7 Orders Orders Complete Blood Count With Diff (07/28/17 16:55) Comprehensive Metabolic Panel (07/28/17 16:55) Lactic Acid (07/28/17 16:55) Prothrombin Time / Inr (Pt) (07/28/17 16:55) Act Partial Throm Time (Ptt) (07/28/17 16:55) Urinalysis - C+S If Indicated (07/28/17 16:55) Ct Abd/Pel W Iv Contrast(Rout) (07/28/17 16:55) Iv Access Insert/Monitor (07/28/17 16:55) Ecg Monitoring (07/28/17 16:55) Oximetry (07/28/17 16:55) Sodium Chlor 0.9% 1000 Ml Inj (Ns 1000 M (07/28/17 16:55) Sodium Chloride 0.9% Flush (Ns Flush) (07/28/17 17:00) Electrocardiogram (07/28/17 16:55) Ct Brain W/O Iv Contrast(Rout) (07/28/17 ) Iohexol 350 Inj (Omnipaque 350 Inj) (07/28/17 18:33) Morphine Inj (Morphine Inj) (07/28/17 19:00) Labs Laboratory Tests Test 07/28/17 17:26 07/28/17 18:49 White Blood Count 5.4 TH/MM3 Red Blood Count 3.45 MIL/MM3 Hemoglobin 10.8 GM/DL Hematocrit 31.7 % Mean Corpuscular Volume 91.7 FL Mean Corpuscular Hemoglobin 31.3 PG Mean Corpuscular Hemoglobin Concent 34.1 % Red Cell Distribution Width 14.6 % Platelet Count 154 TH/MM3 Mean Platelet Volume 7.2 FL Neutrophils (%) (Auto) 93.2 % Lymphocytes (%) (Auto) 2.8 % Monocytes (%) (Auto) 3.2 % Eosinophils (%) (Auto) 0.1 % Basophils (%) (Auto) 0.7 % Neutrophils # (Auto) 5.0 TH/MM3 Lymphocytes # (Auto) 0.2 TH/MM3 Monocytes # (Auto) 0.2 TH/MM3 Eosinophils # (Auto) 0.0 TH/MM3 Basophils # (Auto) 0.0 TH/MM3 CBC Comment DIFF FINAL Differential Comment Prothrombin Time 11.8 SEC Prothromb Time International Ratio 1.2 RATIO Activated Partial Thromboplast Time 25.6 SEC Blood Urea Nitrogen 21 MG/DL Creatinine 0.92 MG/DL Random Glucose 139 MG/DL Total Protein 6.8 GM/DL Albumin 3.2 GM/DL Calcium Level 8.6 MG/DL Alkaline Phosphatase 85 U/L Aspartate Amino Transf (AST/SGOT) 42 U/L Alanine Aminotransferase (ALT/SGPT) 25 U/L Total Bilirubin 0.4 MG/DL Sodium Level 135 MEQ/L Potassium Level 4.1 MEQ/L Chloride Level 99 MEQ/L Carbon Dioxide Level 29.7 MEQ/L Anion Gap 6 MEQ/L Estimat Glomerular Filtration Rate 82 ML/MIN Lactic Acid Level 1.5 mmol/L Urine Color YELLOW Urine Turbidity CLEAR Urine pH 6.0 Urine Specific [place] 1.020 Urine Protein NEG mg/dL Urine Glucose (UA) NEG mg/dL Urine Ketones NEG mg/dL Urine Occult Blood NEG Urine Nitrite NEG Urine Bilirubin NEG Urine Urobilinogen 0.2 MG/DL Urine Leukocyte Esterase NEG Urine RBC 0-3 /hpf Urine WBC 0-2 /hpf Microscopic Urinalysis Comment CULT NOT INDICATED MDM Medical Decision Making Medical Screen Exam Complete: Yes Emergency Medical Condition: Yes Differential Diagnosis Anemia, failure to thrive, dehydration, electrolyte abnormality, bowel obstruction, intracranial metastatic lesion, Narrative Course This is a 67-year-old male who presents with fatigue and failure to thrive in the setting of colorectal cancer. Decreased p.o. intake and great decreased output. He is followed at the [facility] but when called today they referred him to the emergency department instead. Basic labs are fairly reassuring for this patient, UA still pending as well as a CT abdomen pelvis and a CT head [id number] shift change. The patient was discussed with Dr. Osborne to follow-up these studies and disposition the patient appropriately. Juan Chester MD Jul 28, 2017 17:23
[2017-07-28 17:38] LABS: BASOPHIL % 0.7 % (0.0-2.0); EOSINOPHIL % 0.1 % (0.0-4.0); HEMATOCRIT 31.7 % (39.0-51.0); HEMOGLOBIN 10.8 GM/DL (13.0-17.0); LYMPH % 2.8 % (9.0-44.0); LYMPHOCYTE # 0.2 TH/MM3 (1.0-4.8); MEAN CELL VOLUME 91.7 FL (80.0-100.0); MEAN CORPUSCULAR HEMOGLOBIN 31.3 PG (27.0-34.0); MEAN CORPUSCULAR HGB CONC 34.1 % (32.0-36.0); MEAN PLATELET VOLUME 7.2 FL (7.0-11.0); MONO % 3.2 % (0.0-8.0); MONOCYTE # 0.2 TH/MM3 (0-0.9); NEUT % 93.2 % (16.0-70.0); PLATELET COUNT 154 TH/MM3 (150-450); RED BLOOD COUNT 3.45 MIL/MM3 (4.50-5.90); RED CELL DISTRIBUTION WIDTH 14.6 % (11.6-17.2); WHITE BLOOD COUNT 5.4 TH/MM3 (4.0-11.0)
[2017-07-28 17:44] LABS: CHLORIDE 99 MEQ/L (98-107); SODIUM (NA) 135 MEQ/L (136-145)
[2017-07-28 17:47] LABS: CALCIUM 8.6 MG/DL (8.5-10.1)
[2017-07-28 17:48] LABS: ALBUMIN 3.2 GM/DL (3.4-5.0); BICARBONATE 29.7 MEQ/L (21.0-32.0); BLOOD UREA NITROGEN 21 MG/DL (7-18); GLUCOSE,RANDOM 139 MG/DL (74-106); INTERNATIONAL NORMALIZED RATIO 1.2 RATIO; PROTHROMBIN TIME - PATIENT 11.8 SEC (9.8-11.6)
[2017-07-28 17:51] LABS: ALT (GPT) 25 U/L (12-78); AST (GOT) 42 U/L (15-37); CREATININE 0.92 MG/DL (0.60-1.30); GLOMERULAR FILTRATION RATE 82 ML/MIN (>89)
[2017-07-28 17:52] VITALS: RESP 15; O2SAT 98
[2017-07-28 17:52] LABS: TOTAL BILIRUBIN ADULT 0.4 MG/DL (0.2-1.0); TOTAL PROTEIN 6.8 GM/DL (6.4-8.2)
[2017-07-28 17:54] LABS: ALKALINE PHOSPHATASE 85 U/L (45-117)
[2017-07-28 17:56] VITALS: BP 117/72; PULSE 65; RESP 15; O2SAT 98
[2017-07-28] MEDS ORDERED: IOHEXOL 350 MG/ML 10 ML VIAL (for RAD DIAG) IVCONTRAST ONE (18:33)
[2017-07-28 18:58] LABS: BILIRUBIN, URINE NEG (NEG); BLOOD, URINE NEG (NEG); GLUCOSE,URINE NEG (NEG); KETONE, URINE NEG (NEG); NITRITE,URINE NEG (NEG); URINE COLOR YELLOW (YELLW/STRAW); URINE LEUKOCYTE ESTERASE NEG (NEG)
[2017-07-28] MEDS ORDERED: MORPHINE SULFATE 8 MG/ML INJ IV PUSH ONE (19:00)
--- NOTE | 2017-07-28 19:02 | RADRPT ---
EXAM DATE: 07/28/2017 6:30 PM EDT AGE/SEX: 67 years / Male INDICATIONS: Altered mental status. CLINICAL DATA: This is the patient's initial encounter. Patient reports that signs and symptoms have been present for 1 day and indicates a pain score of 0/10. MEDICAL/SURGICAL HISTORY: Carcinoma, colon. Carcinoma, bladder. Anticoagulant therapy. Colon rese ction. Inguinal hernia repair. RADIATION DOSE: 63.34 CTDI (mGy) COMPARISON: No prior [facility] exams available for comparison. TECHNIQUE: CT of the head without contrast. Using automated exposure control and adjustment of the mA and/or kV according to patient size, radiation dose was kept as low as reasonably achievable to ob tain optimal diagnostic quality images. FINDINGS: Cerebrum: The ventricles are normal for age. No evidence of midline shift, mass lesion, hemorrhage or acute infarction. No extraaxial fluid collections are seen. Posterior Fossa: The cerebellum and brainstem are intact. The 4th ventricle is midline. The cerebe llopontine angle is unremarkable. Extracranial: The visualized portion of the orbits is intact. Skull: The calvaria is intact. No evidence of skull fracture. CONCLUSION: 1. No acute intracranial abnormalities. Electronically signed by: Patricio Durbin MD 07/28/2017 7:00 PM EDT
[2017-07-28 19:04] VITALS: BP 171/86; PULSE 88; RESP 26; O2SAT 100
[2017-07-28 19:04] LABS: RBC, URINE 0-3 /hpf (0-3); WBC, URINE 0-2 /hpf (0-5)
--- NOTE | 2017-07-28 19:22 | RADRPT ---
EXAM DATE: 07/28/2017 6:34 PM EDT AGE/SEX: 67 years / Male INDICATIONS: Non specific abdominal pain and colostomy issues. CLINICAL DATA: This is the patient's initial encounter. Patient reports that signs and symptoms have been present for 1 day and indicates a pain score of 4/10. MEDICAL/SURGICAL HISTORY: Carcinoma, colon. Carcinoma, bladder. Anticoagulant therapy. Inguin al hernia repair. Colon resection. ORAL CONTRAST: No oral contrast ingested. RADIATION DOSE: 5.30 CTDI (mGy) COMPARISON: [facility] [place], CT ABDOMEN & PELVIS W CONTRAST, 08/20/2016. . TECHNIQUE: Multiple contiguous axial images were obtained through the abdomen and pelvis following b olus infusion of 85 ml Omnipaque 350 (iohexol) nonionic water-soluble contrast as a single exam dos e. No oral contrast ingested. Using automated exposure control and adjustment of the mA and/or kV ac cording to patient size, the radiation dose was kept as low as reasonably achievable to obtain optima l diagnostic quality images. FINDINGS: Lung bases demonstrate minimal dependent atelectasis. Mild fatty liver. Spleen, adrenals, right kidne y and pancreas unremarkable. There is a left-sided obstructive uropathy with diminished perfusion and there is mild left hydronephrosis and dilatation of the left ureter proximally. Etiology of obstruct yesica uropathy on the left side is not clear on CT. However, there is a reported history of colon carci noma and bladder carcinoma. Bladder wall does appear mildly thickened anteriorly and slightly also po steriorly. There is a suture line noted in the rectum with a 2.2 cm soft tissue density near the sutu re line as well as some stranding of the pelvic fat. Cannot exclude local recurrence. There is a smal l amount free fluid in the abdomen. There is a ostomy left lower quadrant with a small parastomal hernia. No acute bony abnormalities. CONCLUSION: 1. By history: Carcinoma and bladder carcinoma with current left-sided obstructive uropathy and mild hydronephrosis. Etiology of obstructive uropathy on the left side not entirely clear. There is some abnormal low attenuation soft tissue near the suture line in the rectum and there is increased soft t issue and stranding of pelvic fat. Cannot exclude local recurrence. Patient may benefit from a PET sc an to assess for tumor recurrence. 2. Fatty liver with small low-attenuation lesions in the inferior right lobe probably small cysts. 3. Gallstone present. 4. Ostomy left lower quadrant with small parastomal hernia. Electronically signed by: Patricio Durbin MD 07/28/2017 7:20 PM EDT
[2017-07-28] MEDS ORDERED: SENNOSIDES 8.6 MG TAB PO PRN (20:00)
[2017-07-28] MEDS ORDERED: ACETAMINOPHEN 325 MG TAB PO PRN (20:00)
[2017-07-28] MEDS ORDERED: BISACODYL 10 MG SUPP RECTAL PRN (20:00)
[2017-07-28] MEDS ORDERED: MAGNESIUM HYDROXIDE SUSP 30 ML CUP PO PRN (20:00)
[2017-07-28] MEDS ORDERED: LACTULOSE SYRUP 20 GM/30 ML CUP PO PRN (20:00)
[2017-07-28] MEDS ORDERED: NALOXONE HCL 0.4 MG/ML AMP IV PUSH PRN (20:00)
--- NOTE | 2017-07-28 20:03 | PD ---
Physical Exam Narrative 67-year-old male with history of colon cancer at the takes chemotherapy every 2 weeks at [facility], was signed out to be pending the CAT scan. CAT scan shows mild hydro-process on the left with left-sided obstructive uropathy. I spoke with the who states that the found the colon cancer about a year ago and he did the surgery on him removed part of the colon and part of the bladder and she states that at that point the cancer has traveled to the bladder as well. Patient did not receive chemotherapy for the last 6 weeks due to weakness and lethargy. Patient did not have anything to eat and the last 4 weeks and has very minimal urine output and no output from the colostomy bag. Patient will be admitted for failure to thrive and generalized weakness and obstructive uropathy and mild hydronephrosis. at the bedside as well as daughter say that the patient is DNR and he has a living well although I asked the patient and he stated that "he wants everything to be done for him". Patient is alert oriented 3 even though he is very lethargic and take some time to respond. Vitals are stable patient is not tachycardic no tachypnea the patient is stable and saturating 100% on room air. For now there is no altered mental status or any signs or symptoms of deterioration that warrants for ICU admission and the patient is stable to be admitted to the regular floor although if his condition deteriorated later he may have to be upgraded to the ICU. Patient received IV fluids and pain medication and is stable to be transferred to the regular floor. Abdomen/Pelvis CT 07/28/17 1655 Signed Impressions: CONCLUSION: 1. By history: Carcinoma and bladder carcinoma with current left-sided obstruc tive uropathy and mild hydronephrosis. Etiology of obstructive uropathy on the left side not entirely clear. There is some abnormal low attenuation soft tissu e near the suture line in the rectum and there is increased soft tissue and str anding of pelvic fat. Cannot exclude local recurrence. Patient may benefit from a PET scan to assess for tumor recurrence. 2. Fatty liver with small low-attenuation lesions in the inferior right lobe p robably small cysts. 3. Gallstone present. 4. Ostomy left lower quadrant with small parastomal hernia. Head CT 07/28/17 0000 Signed Impressions: CONCLUSION: 1. No acute intracranial abnormalities. Data Data Last Documented VS Vital Signs Date Time Temp Pulse Resp B/P (MAP) Pulse Ox O2 Delivery O2 Flow Rate FiO2 07/28/17 19:04 88 26 171/86 (114) 100 Room Air 07/28/17 16:22 97.7 Orders Orders Complete Blood Count With Diff (07/28/17 16:55) Comprehensive Metabolic Panel (07/28/17 16:55) Lactic Acid (07/28/17 16:55) Prothrombin Time / Inr (Pt) (07/28/17 16:55) Act Partial Throm Time (Ptt) (07/28/17 16:55) Urinalysis - C+S If Indicated (07/28/17 16:55) Ct Abd/Pel W Iv Contrast(Rout) (07/28/17 16:55) Iv Access Insert/Monitor (07/28/17 16:55) Ecg Monitoring (07/28/17 16:55) Oximetry (07/28/17 16:55) Sodium Chlor 0.9% 1000 Ml Inj (Ns 1000 M (07/28/17 16:55) Sodium Chloride 0.9% Flush (Ns Flush) (07/28/17 17:00) Electrocardiogram (07/28/17 16:55) Ct Brain W/O Iv Contrast(Rout) (07/28/17 ) Iohexol 350 Inj (Omnipaque 350 Inj) (07/28/17 18:33) Morphine Inj (Morphine Inj) (07/28/17 19:00) Labs Laboratory Tests Test 07/28/17 17:26 07/28/17 18:49 White Blood Count 5.4 TH/MM3 Red Blood Count 3.45 MIL/MM3 Hemoglobin 10.8 GM/DL Hematocrit 31.7 % Mean Corpuscular Volume 91.7 FL Mean Corpuscular Hemoglobin 31.3 PG Mean Corpuscular Hemoglobin Concent 34.1 % Red Cell Distribution Width 14.6 % Platelet Count 154 TH/MM3 Mean Platelet Volume 7.2 FL Neutrophils (%) (Auto) 93.2 % Lymphocytes (%) (Auto) 2.8 % Monocytes (%) (Auto) 3.2 % Eosinophils (%) (Auto) 0.1 % Basophils (%) (Auto) 0.7 % Neutrophils # (Auto) 5.0 TH/MM3 Lymphocytes # (Auto) 0.2 TH/MM3 Monocytes # (Auto) 0.2 TH/MM3 Eosinophils # (Auto) 0.0 TH/MM3 Basophils # (Auto) 0.0 TH/MM3 CBC Comment DIFF FINAL Differential Comment Prothrombin Time 11.8 SEC Prothromb Time International Ratio 1.2 RATIO Activated Partial Thromboplast Time 25.6 SEC Blood Urea Nitrogen 21 MG/DL Creatinine 0.92 MG/DL Random Glucose 139 MG/DL Total Protein 6.8 GM/DL Albumin 3.2 GM/DL Calcium Level 8.6 MG/DL Alkaline Phosphatase 85 U/L Aspartate Amino Transf (AST/SGOT) 42 U/L Alanine Aminotransferase (ALT/SGPT) 25 U/L Total Bilirubin 0.4 MG/DL Sodium Level 135 MEQ/L Potassium Level 4.1 MEQ/L Chloride Level 99 MEQ/L Carbon Dioxide Level 29.7 MEQ/L Anion Gap 6 MEQ/L Estimat Glomerular Filtration Rate 82 ML/MIN Lactic Acid Level 1.5 mmol/L Urine Color YELLOW Urine Turbidity CLEAR Urine pH 6.0 Urine Specific [place] 1.020 Urine Protein NEG mg/dL Urine Glucose (UA) NEG mg/dL Urine Ketones NEG mg/dL Urine Occult Blood NEG Urine Nitrite NEG Urine Bilirubin NEG Urine Urobilinogen 0.2 MG/DL Urine Leukocyte Esterase NEG Urine RBC 0-3 /hpf Urine WBC 0-2 /hpf Microscopic Urinalysis Comment CULT NOT INDICATED MDM Supervised Visit with [facility]: No Diagnosis Primary Impression: Colon cancer Qualified Codes: C18.9 - Malignant neoplasm of colon, unspecified Additional Impressions: Failure to thrive Qualified Codes: R62.7 - Adult failure to thrive Hydronephrosis Qualified Codes: N13.30 - Unspecified hydronephrosis Obstructive uropathy Admitting Information Admitting Physician Requests: Ankur Fitzgerald MD Jul 28, 2017 20:03
[2017-07-28 21:36] VITALS: BP 152/81; PULSE 53; O2SAT 98
[2017-07-28] MEDS: SODIUM CHLORIDE 0.9% FLUSH 10 ML FLUSH IV FLUSH SCH (21:39)
[2017-07-28] MEDS: SODIUM CHLOR 0.9% 1000 ML INJ 1,000 ML IV SCH (21:39)
[2017-07-28 23:58] VITALS: BP 157/85; PULSE 55; RESP 18; O2SAT 98
[2017-07-29] VITALS (8 sets, daily range): BP systolic 136–180; BP diastolic 68–89; PULSE 58–91; RESP 16–20; TEMP 96.8–97.2; O2SAT 95–98
[2017-07-29 05:02] LABS: AUTOMATED NEUTROPHIL # 5.7 TH/MM3 (1.8-7.7); BASOPHIL # 0.2 TH/MM3 (0-0.2); BASOPHIL % 3.3 % (0.0-2.0); EOSINOPHIL % 0.2 % (0.0-4.0); HEMATOCRIT 32.8 % (39.0-51.0); HEMOGLOBIN 10.6 GM/DL (13.0-17.0); LYMPH % 10.3 % (9.0-44.0); LYMPHOCYTE # 0.7 TH/MM3 (1.0-4.8); MEAN CELL VOLUME 92.4 FL (80.0-100.0); MEAN CORPUSCULAR HEMOGLOBIN 29.9 PG (27.0-34.0); MEAN CORPUSCULAR HGB CONC 32.4 % (32.0-36.0); MEAN PLATELET VOLUME 6.9 FL (7.0-11.0); MONO % 8.4 % (0.0-8.0); MONOCYTE # 0.6 TH/MM3 (0-0.9); NEUT % 77.8 % (16.0-70.0); PLATELET COUNT 144 TH/MM3 (150-450); RED BLOOD COUNT 3.55 MIL/MM3 (4.50-5.90); RED CELL DISTRIBUTION WIDTH 14.4 % (11.6-17.2); WHITE BLOOD COUNT 7.2 TH/MM3 (4.0-11.0)
[2017-07-29 05:12] LABS: BICARBONATE 28.9 MEQ/L (21.0-32.0); CALCIUM 8.1 MG/DL (8.5-10.1)
[2017-07-29] MEDS: SODIUM CHLOR 0.9% 1000 ML INJ 1,000 ML IV SCH ×4 (05:15→19:36)
[2017-07-29 05:16] LABS: CREATININE 0.74 MG/DL (0.60-1.30)
[2017-07-29] MEDS: SODIUM CHLORIDE 0.9% FLUSH 10 ML FLUSH IV FLUSH SCH ×2 (09:34→21:36)
--- NOTE | 2017-07-29 12:42 | PD.CONS ---
Consult Service Palliative Care . Consult Requested By HIMANSHU Lau . Primary Care Physician Abram Pat MD . Reason for Consultation a. To assist with evaluation and management of symptoms including: pain, confusion, poor appetite b. To assist medical decision maker(s) with: better understanding of current medical conditions; weighing benefits/burdens of medical treatment options; making medical treatment decisions. . HPI History of Present Illness Mr. Wilkinson is a 67-year-old male patient with metastatic colon cancer who presented to [facility] on 07/28/2017 for evaluation of an overall decline to include fatigue, abdominal discomfort, decreased stool output from colostomy and decreased nutritional intake. I patient was diagnosed with metastatic colon cancer in September,. He was being evaluated in the ED for abdominal pain/possible UTI when CT abdomen/ pelvis was suspicious for diverticulitis, abscess and possible abdominal mass. Around this time the patient reported food particles and air in his urine; he was subsequently diagnosed with a colovesicle fistula. He underwent an exploratory laparotomy and was noted to have a large tumor obstructing the sigmoid colon, invading the dome of the bladder. There was also a peritoneal seeding noted. He underwent resection of the rectosigmoid and colostomy placement as well as closure of the bladder fistula. Patient is followed at the [facility]. Patient not received chemotherapy for approximately 6 weeks secondary to progressively increased weakness and lethargy. Additional diagnostic data: * Vital signs: Pulse 85, respirations 16, BP 139/68, oxygen saturation 98% on room air, oral temperature 97.7 * WBC: 5.4, hemoglobin 10.8, hematocrit 31.7, platelets 154, neutrophils 93.2% * Sodium: 135, potassium 4.1, chloride 99, carbon dioxide 29.7, glucose 139, calcium 8.6 * Lactic acid: 1.5 * BUN: 21, creatinine 0.92, GFR 82 * Total bilirubin: 0.4, AST 42, ALT 25, alkaline phosphatase 85 * Total protein: 6.8, albumin 3.2 * PT: 11.8, INR 1.2, APTT 25.6 * Urinalysis - normal . Patient was admitted for further evaluation of failure to thrive and generalized weakness and obstructive uropathy and mild hydronephrosis. = CT abdomen/pelvis: By history, carcinoma and bladder carcinoma with current left-sided obstructive uropathy and mild hydronephrosis. Etiology of obstructive uropathy on the left side is not entirely clear. There is some abnormal low attenuation soft tissue near the suture line in the rectum and there is increased soft tissue and stranding of the pelvic fat. Cannot exclude local recurrence. Patient may benefit from a PET scan to assess for tumor recurrence. Fatty liver with low attenuation lesions in the inferior right lobe probably small cysts. Gallstones present. Ostomy left lower quadrant with small parastomal hernia. = CT brain: Showed no intracranial abnormalities Palliative Care was consulted to assist with symptom management and to discuss with the family the benefits and burdens of his current illnesses and the options regarding future care. Patient presents confused and painful on exam with a flat affect. He reports pain in his lower back but is unable to quantify the pain. Patient sits on the side of the bed for a few minutes and then stands up for a few minutes because he is unable to get comfortable. Patient was started on long-acting morphine 15 mg POq8 hours 07/29/17; may need to consider adding a short acting morphine PRN for breakthrough pain. . Function/Cognitive Trajectory Patient was diagnosed with metastatic colon cancer in August,. Patient is followed at the [facility] where he has been receiving aggressive systemic therapy. However, the patient's states he has been unable to receive any chemotherapy 3 months secondary to his worsening functional status. Prior to August, the patient was independent, ambulating without assistive devices and driving to the store. Patient now uses a rolling walker to ambulate. The patient's appetite is poor with a 50 pound weight loss reported in the past year. . Review of Systems ROS Limitations: Clinical Condition, Altered Mental Status, Poor Historian ( ROS obtained through review of medical records and family report.) Constitutional: COMPLAINS OF: Fatigue, Weight loss (50 pound reported weight loss in the past 12 months), Pain, Generalized weakness Neurologic: COMPLAINS OF: Poor Balance Psychiatric: COMPLAINS OF: Confusion Past Family Social History Coded Allergies: No Known Allergies (Verified Allergy, Unknown, 07/28/17) Past Medical History Inguinal hernia Depression Right upper extremity DVT-2007 Metastatic colon cancer-diagnosed in 2017 Encephalitis-2005 . Past Surgical History Vasectomy Hernia repair-2013 Status post exploratory laparotomy Subtotal colectomy with colostomy. Reported Medications Xarelto (Rivaroxaban) 20 Mg Tab 20 Mg PO DAILY Trazodone (Trazodone HCl) 100 Mg Tablet 100 Mg PO HS Sertraline (Sertraline HCl) 50 Mg Tab 50 Mg PO DAILY Promethazine Supp (Promethazine HCl) 12.5 Mg Supp 12.5 Mg RECTAL Q4H PRN Prochlorperazine Maleate 10 Mg Tab 10 Mg PO Q6H PRN Lomotil (Diphenoxylate-Atropine) 2.5-0.025 Mg Tab 1 Tab PO Q6H PRN Flagyl (Metronidazole) 500 Mg Tab 500 Mg PO TID Dexamethasone 4 Mg Tab 4 Mg PO DAILY Clonazepam 1 Mg Tab 1 Mg PO TID Aluminum Hydroxide Liq Gel (Aluminum Hydroxide) 320 Mg/5 Ml Susp 10 Ml PO Q4H PRN Take after meals and at bedtime. Maximum of 3,840 mg (60 ml)/24 hrs. Celexa (Citalopram Hydrobromide) 10 Mg Tab 10 Mg PO DAILY . Current Medications Medications (Trade) Dose Ordered Sig/Jose Manuel Route Start Time Stop Time Status Last Admin (NS Flush) 2 ml UNSCH PRN IV FLUSH 07/28/17 17:00 07/28/17 19:04 Sodium Chloride 1,000 ml @ 100 mls/hr Q10H IV 07/28/17 19:57 07/29/17 09:34 (NS Flush) 2 ml UNSCH PRN IV FLUSH 07/28/17 20:00 (NS Flush) 2 ml BID IV FLUSH 07/28/17 21:00 07/29/17 09:34 (Tylenol) 650 mg Q4H PRN PO 07/28/17 20:00 (Narcan Inj) 0.4 mg UNSCH PRN IV PUSH 07/28/17 20:00 (Milk Of Magnesia Liq) 30 ml Q12H PRN PO 07/28/17 20:00 (Senokot) 17.2 mg Q12H PRN PO 07/28/17 20:00 (Dulcolax Supp) 10 mg DAILY PRN RECTAL 07/28/17 20:00 (Lactulose Liq) 30 ml DAILY PRN PO 07/28/17 20:00 Sodium Chloride 1,000 ml @ 100 mls/hr Q10H IV 07/29/17 05:15 . Family History Mother from complications related to diabetes and hypertension at the age of 65. Patient has 2 brothers and one sister who are alive and healthy. . Substance Use Tobacco: No known history of smoking Alcohol: Socially consumes EtOH Prescription med abuse: None known Illicits: None known . Psychosocial History Patient is originally from [place] but has lived in [place] most of his life. He has been 3 times. Currently to his third , Tiffany . They have been for approximately 30 years. He has 4 children; 2 from a previous relationships and 2 from his current marriage. Tiffany states they have a son who is 26 years old and a daughter who is 21 years old. Their daughter is and planning a wedding. Patient's states she had left her a short time before he was diagnosed ion the summer. Since being diagnosed the patient and his , who is the primary caregiver, has been residing together again. . Spiritual/Cultural Factors Pending further conversations with patient/family . Living Will: Copy in medical record Health Care Surrogate: Copy in medical record Date completed: 11/06/2016 . Health Care Surrogate(s): Patient's , Tiffany, is designated as the healthcare surrogate decision maker. . Documented care wishes: A living will was completed on November 06, 2016 and can be accessed in the patient's EMR. . Today's verbally stated goals: Patient currently has limited insight and judgement related to his medical conditions; it is uncertain if the patient will regain capacity for medical decision-making. . Family/friends goals: Patient's feels it is time to transition to comfort focused care. Patient has been unable to tolerate systemic chemotherapy and has missed the past 6 cycles. Given patient's poor functional status and ongoing progressive decline , she does not feel the patient will be able to continue aggressive therapy. . Ethical and Legal Issues No known ethical or legal issues in Impacting care at this time. . Physical Exam Vital Signs Date Time Temp Pulse Resp B/P (MAP) Pulse Ox O2 Delivery O2 Flow Rate FiO2 07/29/17 11:57 97.2 91 20 142/76 (98) 98 07/29/17 09:05 97.1 69 20 148/72 (97) 98 07/29/17 08:45 58 16 146/77 (100) 97 07/29/17 07:11 79 18 156/82 (106) 95 Room Air 07/29/17 06:30 58 16 143/75 (97) 98 Room Air 07/29/17 03:39 62 180/89 (119) 98 Room Air 07/28/17 23:58 55 18 157/85 (109) 98 Room Air 07/28/17 21:36 53 152/81 (104) 98 Room Air 07/28/17 19:04 88 26 171/86 (114) 100 Room Air 07/28/17 17:56 65 15 117/72 (87) 98 Room Air 07/28/17 17:52 15 98 Room Air 07/28/17 16:22 97.7 85 16 139/68 (91) 98 . 07/29/17 07/30/17 19:00 07:00 Output Total 250 ml Balance -250 ml Output Urine Total 250 ml . Exam CONSTITUTIONAL/GENERAL: This is an frail, chronically ill-appearing, elderly male patient who appears somewhat disoriented. TUBES/LINES/DRAINS: PIV, right-sided chest wall VAD SKIN: No jaundice, rashes, or lesions. Ecchymoses on upper extremities. No wounds seen anteriorly. Skin temperature appropriate. Not diaphoretic. HEAD: Atraumatic. Normocephalic. EYES: Pupils equal and round and reactive. Extraocular motions intact. No scleral icterus. No injection or drainage. Fundi not examined. ENT: Hearing grossly normal. Nose without bleeding or purulent drainage. NECK: Trachea midline. Supple, nontender. No palpable thyroid enlargement or nodularity. CARDIOVASCULAR: Regular rate and rhythm without murmurs, gallops, or rubs. No JVD. Peripheral pulses symmetric. RESPIRATORY/CHEST: Symmetric, unlabored respirations. Clear to auscultation. Breath sounds equal bilaterally. No wheezes, rales, or rhonchi. GASTROINTESTINAL: Abdomen soft, slightly tender to palpation.. Bowel sounds present. GENITOURINARY: Without palpable bladder distension. MUSCULOSKELETAL: Extremities without clubbing, cyanosis, or edema. No mottling or clubbing. LYMPHATICS: No palpable cervical or supraclavicular adenopathy. NEUROLOGICAL: Patient appears somewhat dazed. Will respond to only some questions with brief 1-2 word answers; follows simple commands intermittently PSYCHIATRIC: Flat affect. No obvious anxiety/depression. No apparent hallucinations or other psychotic thought process. . Diagnostic Tests Laboratory Laboratory Tests Test 07/28/17 17:26 07/28/17 18:49 07/29/17 05:00 White Blood Count 5.4 TH/MM3 (4.0-11.0) 7.2 TH/MM3 (4.0-11.0) Red Blood Count 3.45 MIL/MM3 (4.50-5.90) 3.55 MIL/MM3 (4.50-5.90) Hemoglobin 10.8 GM/DL (13.0-17.0) 10.6 GM/DL (13.0-17.0) Hematocrit 31.7 % (39.0-51.0) 32.8 % (39.0-51.0) Mean Corpuscular Volume 91.7 FL (80.0-100.0) 92.4 FL (80.0-100.0) Mean Corpuscular Hemoglobin 31.3 PG (27.0-34.0) 29.9 PG (27.0-34.0) Mean Corpuscular Hemoglobin Concent 34.1 % (32.0-36.0) 32.4 % (32.0-36.0) Red Cell Distribution Width 14.6 % (11.6-17.2) 14.4 % (11.6-17.2) Platelet Count 154 TH/MM3 (150-450) 144 TH/MM3 (150-450) Mean Platelet Volume 7.2 FL (7.0-11.0) 6.9 FL (7.0-11.0) Neutrophils (%) (Auto) 93.2 % (16.0-70.0) 77.8 % (16.0-70.0) Lymphocytes (%) (Auto) 2.8 % (9.0-44.0) 10.3 % (9.0-44.0) Monocytes (%) (Auto) 3.2 % (0.0-8.0) 8.4 % (0.0-8.0) Eosinophils (%) (Auto) 0.1 % (0.0-4.0) 0.2 % (0.0-4.0) Basophils (%) (Auto) 0.7 % (0.0-2.0) 3.3 % (0.0-2.0) Neutrophils # (Auto) 5.0 TH/MM3 (1.8-7.7) 5.7 TH/MM3 (1.8-7.7) Lymphocytes # (Auto) 0.2 TH/MM3 (1.0-4.8) 0.7 TH/MM3 (1.0-4.8) Monocytes # (Auto) 0.2 TH/MM3 (0-0.9) 0.6 TH/MM3 (0-0.9) Eosinophils # (Auto) 0.0 TH/MM3 (0-0.4) 0.0 TH/MM3 (0-0.4) Basophils # (Auto) 0.0 TH/MM3 (0-0.2) 0.2 TH/MM3 (0-0.2) CBC Comment DIFF FINAL DIFF FINAL Differential Comment Prothrombin Time 11.8 SEC (9.8-11.6) Prothromb Time International Ratio 1.2 RATIO Activated Partial Thromboplast Time 25.6 SEC (24.3-30.1) Blood Urea Nitrogen 21 MG/DL (7-18) 16 MG/DL (7-18) Creatinine 0.92 MG/DL (0.60-1.30) 0.74 MG/DL (0.60-1.30) Random Glucose 139 MG/DL (74-106) 83 MG/DL (74-106) Total Protein 6.8 GM/DL (6.4-8.2) Albumin 3.2 GM/DL (3.4-5.0) Calcium Level 8.6 MG/DL (8.5-10.1) 8.1 MG/DL (8.5-10.1) Alkaline Phosphatase 85 U/L (45-117) Aspartate Amino Transf (AST/SGOT) 42 U/L (15-37) Alanine Aminotransferase (ALT/SGPT) 25 U/L (12-78) Total Bilirubin 0.4 MG/DL (0.2-1.0) Sodium Level 135 MEQ/L (136-145) 137 MEQ/L (136-145) Potassium Level 4.1 MEQ/L (3.5-5.1) 3.8 MEQ/L (3.5-5.1) Chloride Level 99 MEQ/L (98-107) 103 MEQ/L (98-107) Carbon Dioxide Level 29.7 MEQ/L (21.0-32.0) 28.9 MEQ/L (21.0-32.0) Anion Gap 6 MEQ/L (5-15) 5 MEQ/L (5-15) Estimat Glomerular Filtration Rate 82 ML/MIN (>89) 105 ML/MIN (>89) Lactic Acid Level 1.5 mmol/L (0.4-2.0) Urine Color YELLOW (YELLW/STRAW) Urine Turbidity CLEAR (CLEAR) Urine pH 6.0 (5.0-8.5) Urine Specific Bowman 1.020 (1.002-1.035) Urine Protein NEG mg/dL (NEG-TRACE) Urine Glucose (UA) NEG mg/dL (NEG) Urine Ketones NEG mg/dL (NEG) Urine Occult Blood NEG (NEG) Urine Nitrite NEG (NEG) Urine Bilirubin NEG (NEG) Urine Urobilinogen 0.2 MG/DL (LESS THAN Urine Leukocyte Esterase NEG (NEG) Urine RBC 0-3 /hpf (0-3) Urine WBC 0-2 /hpf (0-5) Microscopic Urinalysis Comment CULT NOT INDICATED . Result Diagram: 07/29/17 0500 07/29/17 0500 Imaging Last 72 hours Impressions Abdomen/Pelvis CT 07/28/17 1655 Signed Impressions: CONCLUSION: 1. By history: Carcinoma and bladder carcinoma with current left-sided obstruc tive uropathy and mild hydronephrosis. Etiology of obstructive uropathy on the left side not entirely clear. There is some abnormal low attenuation soft tissu e near the suture line in the rectum and there is increased soft tissue and str anding of pelvic fat. Cannot exclude local recurrence. Patient may benefit from a PET scan to assess for tumor recurrence. 2. Fatty liver with small low-attenuation lesions in the inferior right lobe p robably small cysts. 3. Gallstone present. 4. Ostomy left lower quadrant with small parastomal hernia. Head CT 07/28/17 0000 Signed Impressions: CONCLUSION: 1. No acute intracranial abnormalities. . Patient/Family Conference Present at Family Conference: Met with patient and his at bedside. . Family Conference Location: Bedside, Consult Room Issues Discussed: * Palliative care role, purpose, approach * Additional medical, psychosocial, and spiritual history * Patients general health, functional status, and cognitive changes in the months leading up to the current hospitalization * Patient/family understanding of the current medical problems * Patient/family understanding of prognosis * Patients goals of care as best understood from advance directives and/or conversations and/or values * Current medical treatment options and benefits/burdens of those options * Likely scenarios comparing ongoing aggressive care with a transition to comfort measures only * Questions answered to the best of my ability * Palliative care contact information provided . Assessment and Plan Disease Oriented Problem List: (1) Hydronephrosis (2) Failure to thrive (3) Obstructive uropathy (4) Colon cancer Symptom Scale: (1) Pain 0-10 Scale: Unable to quantify Comment: Started on long-acting morphine 15 mg PO q8 hours on 07/29/17. May want to consider starting a low-dose of short acting morphine for breakthrough pain if indicated. (2) Confusion 0-10 Scale: Unable to quantify Comment: Patient appears somewhat dazed. Flat affect. Will respond to only some questions with brief 1-2 word answers; follows simple commands intermittently. CT head on 07/28/2017 revealed no acute intracranial abnormalities. . (3) Decrease in appetite 0-10 Scale: Unable to quantify Comment: Patient's reports a significant decrease in appetite with an estimated weight loss of 50 pounds in the past year. She states that patient's nutritional intake has been poor for the past several weeks; appetite stimulants were unsuccessful. Patient reportedly was drinking 1 Ensure per day before this hospitalization. . Pertinent Non-Medical Issues Psychosocial: Patient is originally from [place] but has lived in [place] most of his life. He has been 3 times. Currently to his third , Tiffany . They have been for approximately 30 years. He has 4 children; 2 from a previous relationships and 2 from his current marriage. Tiffany states they have a son who is 26 years old and a daughter who is 21 years old. Their daughter is and planning a wedding. Patient's states she had left her a short time before he was diagnosed ion the summer. Since being diagnosed the patient and his , who is the primary caregiver, has been residing together again. Spiritual: Pending further conversations Legal: No known legal issues impacting care Ethical issues impacting care: No known ethical issues impacting care. . Important Contacts Tiffany Wilkinson, : [phone] Teodoro Wilkinson, daughter: [phone] . Prognosis Patient is a 67-year-old male who was diagnosed with metastatic colon cancer approximately 10-11 months ago. He has been receiving systemic therapy at the [facility], but has missed the past 6 cycles of chemotherapy secondary to poor functioning status. Given the patient's diagnosis of metastatic colon cancer, advanced age and poor functioning status, he is at high risk for ongoing decline and complications. Patient is hospice appropriate when/if his medical treatment goals become comfort oriented. . Code Status: No Code Plan * NO CODE-DNR/DNI * Decision-making: Patient has limited insight and judgment related to his medical conditions; it is unclear if the patient will regain capacity for medical decision-making. Patient has designated his , Tiffany, as his healthcare surrogate decision maker. * A living will was completed on November 06, 2016 and is accessible in the EMR. The document states that if the patient were to have a terminal condition , an end-stage condition, or be in a persistent vegetative state, and if his attending physician and another consulting physician had determined that there was no reasonable medical probability of his recovery from such condition, he directs that life prolonging procedures be withheld or withdrawn when application of such procedures would serve only to prolong artificially the process of dying, and that he be permitted to naturally with only the administration of medication or the performance of any medical procedures deemed necessary to provide him with comfort care or to alleviate pain. * Goals currently aggressive up to the point of cardiopulmonary resuscitation. * Patient's feels it is time to transition to comfort focused care. Patient has been unable to tolerate systemic chemotherapy and has missed the past 6 cycles. Given patient's poor functional status and ongoing progressive decline, she does not feel the patient will be able to continue aggressive therapy. She would like to hear overall prognosis/recommendations from the [facility] oncology team. * Dr. Martin Watson is the patient's oncologist at the [facility]. Phone call placed to [facility] at [phone], awaiting return phone call from John MENARD * Discussed patient with RN (Richi), Chadd MENARD and Dr. Hedrick * Tentative palliative care meeting with patient/family again tomorrow 07/30/2017 at 11 AM. * Symptoms: pain, confusion, decreased appetite. * Palliative care will continue to follow this patient throughout his hospitalization to establish trust, assist with symptom management and clarification of medical treatment goals. . Thank you for the opportunity to participate in the care of Mr. Wilkinson. Attestation To help prompt me to consider important information that might be impacting today's encounter and assessment, information from prior notes written by myself or my colleagues may have been "brought forward" into today's note. My signature on this note, however, is an attestation that I personally performed the exam, history, and/or decision-making noted today, and, unless otherwise indicated, the interactions with patient, family, and staff as well as the review of records all occurred today. I also attest that the listed assessment and stated plan reflect my best clinical judgment today based on the combination of historical information, prior notes, and today's exam/ interactions. When time spent is documented, it refers only to time spent today by the signer, or if indicated, combined time spent today by collaborating physician/nurse practitioner. . Veda Echeverria Jul 29, 2017 12:42
--- NOTE | 2017-07-29 13:14 | HHI.HP ---
[facility] Service [facility] Primary Care Physician Abram Pat MD Admission Diagnosis FAILURE TO THRIVE, METASTATIC COLON CANCER, HYDRONEPHRSIS. Diagnoses: Chief Complaint: Inreasing weakness and deteriorating overall condition Travel History International Travel<30 Days: No Contact w/Intl Traveler <30 Da: No Traveled to Known Affected Are: No History of Present Illness 67-year-old male with a medical history significant for metastatic colon cancer status post colectomy who apparently has been gone palliative chemotherapy at the [facility]. Unfortunately the patient's condition has been deteriorating longer receive chemotherapy. He presented to the hospital with complaint of worsening fatigue, very limited p.o. intake, and overall worsening functional status. Much of the history taken from the patient's at bedside. She reports that she understands the patient is getting worse to be improving. The patient himself reports that his goal is to go back to the [facility] in hopes that they will make him better. Currently he appears very uncomfortable, restless, unable to sit in one area. He complains of lower back pain. Imaging in the emergency room revealed possible obstruction with hydronephrosis. However renal functions are unremarkable. Review of Systems Constitutional: COMPLAINS OF: Fatigue, Weight loss Respiratory: DENIES: Shortness of breath Cardiovascular: DENIES: Chest pain Gastrointestinal: COMPLAINS OF: Nausea, DENIES: Vomiting Musculoskeletal: COMPLAINS OF: Back pain Past Family Social History Past Medical History Inguinal hernia Depression Right upper extremity DVT Metastatic colon cancer-diagnosed in 2017. metastatic to the bladder. Previous PET showed peritoneal seeding throughout the sigmoid mesentery, pelvic peritoneum, and cul-de-sac noted. Encephalitis Heat stroke Past Surgical History Vasectomy Hernia repair-2013 Status post exploratory laparotomy Subtotal colectomy with colostomy. Reported Medications Reported Meds & Active Scripts Active Reported Xarelto (Rivaroxaban) 20 Mg Tab 20 Mg PO DAILY Trazodone (Trazodone HCl) 100 Mg Tablet 100 Mg PO HS Sertraline (Sertraline HCl) 50 Mg Tab 50 Mg PO DAILY Promethazine Supp (Promethazine HCl) 12.5 Mg Supp 12.5 Mg RECTAL Q4H PRN Prochlorperazine Maleate 10 Mg Tab 10 Mg PO Q6H PRN Lomotil (Diphenoxylate-Atropine) 2.5-0.025 Mg Tab 1 Tab PO Q6H PRN Flagyl (Metronidazole) 500 Mg Tab 500 Mg PO TID Dexamethasone 4 Mg Tab 4 Mg PO DAILY Clonazepam 1 Mg Tab 1 Mg PO TID Aluminum Hydroxide Liq Gel (Aluminum Hydroxide) 320 Mg/5 Ml Susp 10 Ml PO Q4H PRN Take after meals and at bedtime. Maximum of 3,840 mg (60 ml)/24 hrs. Celexa (Citalopram Hydrobromide) 10 Mg Tab 10 Mg PO DAILY Allergies: Coded Allergies: No Known Allergies (Verified Allergy, Unknown, 07/28/17) Family History Reviewed and is found to be noncontributory. Physical Exam Vital Signs Vital Signs Date Time Temp Pulse Resp B/P (MAP) Pulse Ox O2 Delivery O2 Flow Rate FiO2 07/29/17 11:57 97.2 91 20 142/76 (98) 98 07/29/17 09:05 97.1 69 20 148/72 (97) 98 07/29/17 08:45 58 16 146/77 (100) 97 07/29/17 07:11 79 18 156/82 (106) 95 Room Air 07/29/17 06:30 58 16 143/75 (97) 98 Room Air 07/29/17 03:39 62 180/89 (119) 98 Room Air 07/28/17 23:58 55 18 157/85 (109) 98 Room Air 07/28/17 21:36 53 152/81 (104) 98 Room Air 07/28/17 19:04 88 26 171/86 (114) 100 Room Air 07/28/17 17:56 65 15 117/72 (87) 98 Room Air 07/28/17 17:52 15 98 Room Air 07/28/17 16:22 97.7 85 16 139/68 (91) 98 Physical Exam GENERAL: Very frail male patient. Restless and appears uncomfortable. CARDIOVASCULAR: Normal rate and regular rhythm without murmurs, gallops, or rubs. RESPIRATORY: Good respiratory efforts. Breath sounds equal and clear to auscultation bilaterally. GASTROINTESTINAL: Abdomen soft, Ostomy appear intact. Active bowel sounds MUSCULOSKELETAL: Extremities without cyanosis, or edema. NEURO: Alert & Oriented to person and place. I am not entirely sure if he understands his current condition. PSYCH: Appropriate mood and affect. Laboratory Laboratory Tests Test 07/28/17 17:26 07/28/17 18:49 07/29/17 05:00 White Blood Count 5.4 7.2 Red Blood Count 3.45 3.55 Hemoglobin 10.8 10.6 Hematocrit 31.7 32.8 Mean Corpuscular Volume 91.7 92.4 Mean Corpuscular Hemoglobin 31.3 29.9 Mean Corpuscular Hemoglobin Concent 34.1 32.4 Red Cell Distribution Width 14.6 14.4 Platelet Count 154 144 Mean Platelet Volume 7.2 6.9 Neutrophils (%) (Auto) 93.2 77.8 Lymphocytes (%) (Auto) 2.8 10.3 Monocytes (%) (Auto) 3.2 8.4 Eosinophils (%) (Auto) 0.1 0.2 Basophils (%) (Auto) 0.7 3.3 Neutrophils # (Auto) 5.0 5.7 Lymphocytes # (Auto) 0.2 0.7 Monocytes # (Auto) 0.2 0.6 Eosinophils # (Auto) 0.0 0.0 Basophils # (Auto) 0.0 0.2 CBC Comment DIFF FINAL DIFF FINAL Differential Comment Prothrombin Time 11.8 Prothromb Time International Ratio 1.2 Activated Partial Thromboplast Time 25.6 Blood Urea Nitrogen 21 16 Creatinine 0.92 0.74 Random Glucose 139 83 Total Protein 6.8 Albumin 3.2 Calcium Level 8.6 8.1 Alkaline Phosphatase 85 Aspartate Amino Transf (AST/SGOT) 42 Alanine Aminotransferase (ALT/SGPT) 25 Total Bilirubin 0.4 Sodium Level 135 137 Potassium Level 4.1 3.8 Chloride Level 99 103 Carbon Dioxide Level 29.7 28.9 Anion Gap 6 5 Estimat Glomerular Filtration Rate 82 105 Lactic Acid Level 1.5 Urine Color YELLOW Urine Turbidity CLEAR Urine pH 6.0 Urine Specific [place] 1.020 Urine Protein NEG Urine Glucose (UA) NEG Urine Ketones NEG Urine Occult Blood NEG Urine Nitrite NEG Urine Bilirubin NEG Urine Urobilinogen 0.2 Urine Leukocyte Esterase NEG Urine RBC 0-3 Urine WBC 0-2 Microscopic Urinalysis Comment CULT NOT INDICATED Result Diagram: 07/29/17 0500 07/29/17 0500 Imaging Last Impressions Abdomen/Pelvis CT 07/28/17 1655 Signed Impressions: CONCLUSION: 1. By history: Carcinoma and bladder carcinoma with current left-sided obstruc tive uropathy and mild hydronephrosis. Etiology of obstructive uropathy on the left side not entirely clear. There is some abnormal low attenuation soft tissu e near the suture line in the rectum and there is increased soft tissue and str anding of pelvic fat. Cannot exclude local recurrence. Patient may benefit from a PET scan to assess for tumor recurrence. 2. Fatty liver with small low-attenuation lesions in the inferior right lobe p robably small cysts. 3. Gallstone present. 4. Ostomy left lower quadrant with small parastomal hernia. Head CT 07/28/17 0000 Signed Impressions: CONCLUSION: 1. No acute intracranial abnormalities. Caprini VTE Risk Assessment Caprini VTE Risk Assessment: Mod/High Risk (score >= 2) Caprini Risk Assessment Model Point Value = 1 Point Value = 2 Point Value = 3 Point Value = 5 Age 41-60 Minor surgery BMI > 25 kg/m2 Swollen legs Varicose veins or History of unexplained or recurrent spontaneous Oral contraceptives or hormone replacement Sepsis (< 1 month) Serious lung disease, including pneumonia (< 1 month) Abnormal pulmonary function Acute myocardial infarction Congestive heart failure (< 1 month) History of inflammatory bowel disease Medical patient at bed rest Age 61-74 Arthroscopic surgery Major open surgery (> 45 min) Laparoscopic surgery (> 45 min) Malignancy Confined to bed (> 72 hours) Immobilizing plaster cast Central venous access Age >= 75 History of VTE Family history of VTE Factor V Leiden Prothrombin [id number] Lupus anticoagulant Anticardiolipin antibodies Elevated serum homocysteine Heparin-induced thrombocytopenia Other congenital or acquired thrombophilia Stroke (< 1 month) Elective arthroplasty Hip, pelvis, or leg fracture Acute spinal cord injury (< 1 month) Prophylaxis Regimen Total Risk Factor Score Risk Level Prophylaxis Regimen 0-1 Low Early ambulation 2 Moderate Order ONE of the following: *Sequential Compression Device (SCD) *Heparin 5000 units SQ BID 3-4 Higher Order ONE of the following medications: *Heparin 5000 units SQ TID *Enoxaparin/Lovenox 40 mg SQ daily (WT < 150 kg, CrCl > 30 mL/min) *Enoxaparin/Lovenox 30 mg SQ daily (WT < 150 kg, CrCl > 10-29 mL/min) *Enoxaparin/Lovenox 30 mg SQ BID (WT < 150 kg, CrCl > 30 mL/min) AND/OR *Sequential Compression Device (SCD) 5 or more Highest Order ONE of the following medications: *Heparin 5000 units SQ TID (Preferred with Epidurals) *Enoxaparin/Lovenox 40 mg SQ daily (WT < 150 kg, CrCl > 30 mL/min) *Enoxaparin/Lovenox 30 mg SQ daily (WT < 150 kg, CrCl > 10-29 mL/min) *Enoxaparin/Lovenox 30 mg SQ BID (WT < 150 kg, CrCl > 30 mL/min) AND *Sequential Compression Device (SCD) Assessment and Plan Problem List: (1) Colon cancer ICD Code: C18.9 - Malignant neoplasm of colon, unspecified Status: Acute (2) Obstructive uropathy ICD Code: N13.9 - Obstructive and reflux uropathy, unspecified Status: Acute (3) Failure to thrive Status: Acute (4) Hydronephrosis ICD Code: N13.30 - Unspecified hydronephrosis Status: Acute Assessment and Plan 67-year-old male with metastatic colon cancer who has been receiving palliative chemotherapy at the [facility]. Unfortunately the patient is not responding to chemotherapy and is having worsening functional decline. Per his the [facility] is not willing to proceed with further chemotherapy treatment. Unfortunately there is not much else we can do. I discussed with the patient and his . He states that he is hoping to go back to the [facility] and hopes to get better. He appears very uncomfortable currently secondary to low back pain Plan: -Add Oramorph low dose to help with worsening low back pain - Palliative care consulted to help with goals of care - Regarding obstructive uropathy: Renal functions are stable. We will continue to monitor. - If the patient's goal is to return to [facility], I discussed with his to make arrangement for follow up appointment for when he is stable Unfortunately it is obvious that he is likely will continue to decline as he did not respond to the chemo. If the patient and family decides to transition to comfort care, he is certainly appropriate for hospice. - Possible discharge tomorrow Discussed Condition With Patient and his at bedside. Unfortunately there there does not appear that we can do much since he is getting weaker with Chemo. He wants to go back to [place]. Plan to DC in AM and I discussed with his to make arrangements to follow up at [place]. Problem Qualifiers (1) Colon cancer: Qualified Codes: C18.9 - Malignant neoplasm of colon, unspecified (2) Failure to thrive: Qualified Codes: R62.7 - Adult failure to thrive (3) Hydronephrosis: Qualified Codes: N13.30 - Unspecified hydronephrosis Alec Hedrick MD Jul 29, 2017 13:14
[2017-07-29] MEDS: MORPHINE SULFATE 15 MG CONTROLLED RELEASE TAB PO SCH ×2 (14:15→21:37)
--- NOTE | 2017-07-29 14:33 | HHI.FF ---
Face to Face Verification Diagnosis: (1) Obstructive uropathy (2) Failure to thrive (3) Hydronephrosis Physical Therapy Order: Evaluate and Treat, Improve ambulation, Strength and gait training Home Health Nursing Order: Medical education Signs/symptoms of disease process Nursing assessment with vital signs I have seen patient Juan Alberto Wilkinson on 07/29/17. My clinical findings support the need for the requested home health care services because: Ltd mobility - disease progression Deconditioned w/ increased weakness I certify that my clinical findings support that this patient is homebound because: Unsteady gait/balance Unsafe to leave home unassisted Chadd Gonzalez Jul 29, 2017 14:33
--- NOTE | 2017-07-29 15:50 | EKG ---
Date Performed: 07/28/2017 Time Performed: 17:05:48 PTAGE: 67 years EKG: Sinus rhythm MARKED LEFT AXIS DEVIATION PATTERN CONSISTENT WITH PULMONARY DISEASE ABNORMAL ECG Since the PREVIOUS TRACING , no significant change noted PREVIOUS TRACIN09/17/2016 08.43 DOCTOR: Cathleen Rondon Interpretating Date/Time 07/29/2017 15:49:14
--- NOTE | 2017-07-29 16:48 | PD.CONS ---
HPI Service Urology Consult Requested By Lilly DOWNS Reason for Consult H/o Bladder cancer. CT showed left hydronephrosis Primary Care Physician Abram Pat MD Diagnosis: History of Present Illness Mr. Wilkinson is a 67-year-old male patient with metastatic colon cancer who presented to [facility] [place] on 07/28/2017 for evaluation of weakness / fatigue, abdominal discomfort, decreased stool output from colostomy and decreased nutritional intake. Also b/l low back pain. no fever, no N/V. No hematuria. No other voiding c/o Patient was diagnosed with metastatic colon cancer in September,. He was being evaluated in the ED for abdominal pain/possible UTI when CT abdomen/ pelvis was suspicious for diverticulitis, abscess and possible abdominal mass. Around this time the patient reported food particles and air in his urine; he was subsequently diagnosed with a colovesicle fistula. He underwent an exploratory laparotomy and was noted to have a large tumor obstructing the sigmoid colon, invading the dome of the bladder. There was also a peritoneal seeding noted. He underwent resection of the rectosigmoid and colostomy placement as well as closure of the bladder fistula at the [facility]. He does not remember when does he have a follow up with them but states that was there several months ago. He was on chemo but due to his functioning status he was not able to continue it and missed his last [address] scan at ER c/w possible recurrent tumor as well as mild left hydronephrosis. His current VS and Labs are stable. Cr is normal Review of Systems Except as stated in HPI: all other systems reviewed are Neg Past Family Social History Past Medical History Inguinal hernia Depression Right upper extremity DVT-2007 Metastatic colon cancer-diagnosed in 2017 Encephalitis-2005 Past Surgical History Vasectomy Hernia repair-2013 Status post exploratory laparotomy Subtotal colectomy with colostomy. Allergies: Coded Allergies: No Known Allergies (Verified Allergy, Unknown, 07/28/17) Family History Father? Mother from complications related to diabetes and hypertension at the age of 65. Patient has 2 brothers and one sister who are alive and healthy. Social History none Physical Exam Vital Signs Date Time Temp Pulse Resp B/P (MAP) Pulse Ox O2 Delivery O2 Flow Rate FiO2 07/29/17 15:49 96.8 86 20 140/68 (92) 98 07/29/17 11:57 97.2 91 20 142/76 (98) 98 07/29/17 09:05 97.1 69 20 148/72 (97) 98 07/29/17 08:45 58 16 146/77 (100) 97 07/29/17 07:11 79 18 156/82 (106) 95 Room Air 07/29/17 06:30 58 16 143/75 (97) 98 Room Air 07/29/17 03:39 62 180/89 (119) 98 Room Air 07/28/17 23:58 55 18 157/85 (109) 98 Room Air 07/28/17 21:36 53 152/81 (104) 98 Room Air 07/28/17 19:04 88 26 171/86 (114) 100 Room Air 07/28/17 17:56 65 15 117/72 (87) 98 Room Air 07/28/17 17:52 15 98 Room Air Physical Exam GENERAL: This is a well-nourished, well-developed patient, in no apparent distress. SKIN: No rashes, ecchymoses or lesions. Cool and dry. HEAD: Atraumatic. Normocephalic. CARDIOVASCULAR: Regular rate and rhythm without murmurs, gallops, or rubs. RESPIRATORY: Clear to auscultation. Breath sounds equal bilaterally. No wheezes , rales, or rhonchi. GASTROINTESTINAL: Abdomen soft, non-tender, nondistended. Colostomy present GENITOURINARY: no CVAT no bladder distention MUSCULOSKELETAL: Extremities without clubbing, cyanosis, or edema. NEUROLOGICAL: Awake and alert. . Lab results reviewed: Yes Laboratory Tests Test 07/28/17 17:26 07/28/17 18:49 07/29/17 05:00 White Blood Count 5.4 7.2 Red Blood Count 3.45 3.55 Hemoglobin 10.8 10.6 Hematocrit 31.7 32.8 Mean Corpuscular Volume 91.7 92.4 Mean Corpuscular Hemoglobin 31.3 29.9 Mean Corpuscular Hemoglobin Concent 34.1 32.4 Red Cell Distribution Width 14.6 14.4 Platelet Count 154 144 Mean Platelet Volume 7.2 6.9 Neutrophils (%) (Auto) 93.2 77.8 Lymphocytes (%) (Auto) 2.8 10.3 Monocytes (%) (Auto) 3.2 8.4 Eosinophils (%) (Auto) 0.1 0.2 Basophils (%) (Auto) 0.7 3.3 Neutrophils # (Auto) 5.0 5.7 Lymphocytes # (Auto) 0.2 0.7 Monocytes # (Auto) 0.2 0.6 Eosinophils # (Auto) 0.0 0.0 Basophils # (Auto) 0.0 0.2 CBC Comment DIFF FINAL DIFF FINAL Differential Comment Prothrombin Time 11.8 Prothromb Time International Ratio 1.2 Activated Partial Thromboplast Time 25.6 Blood Urea Nitrogen 21 16 Creatinine 0.92 0.74 Random Glucose 139 83 Total Protein 6.8 Albumin 3.2 Calcium Level 8.6 8.1 Alkaline Phosphatase 85 Aspartate Amino Transf (AST/SGOT) 42 Alanine Aminotransferase (ALT/SGPT) 25 Total Bilirubin 0.4 Sodium Level 135 137 Potassium Level 4.1 3.8 Chloride Level 99 103 Carbon Dioxide Level 29.7 28.9 Anion Gap 6 5 Estimat Glomerular Filtration Rate 82 105 Lactic Acid Level 1.5 Urine Color YELLOW Urine Turbidity CLEAR Urine pH 6.0 Urine Specific [place] 1.020 Urine Protein NEG Urine Glucose (UA) NEG Urine Ketones NEG Urine Occult Blood NEG Urine Nitrite NEG Urine Bilirubin NEG Urine Urobilinogen 0.2 Urine Leukocyte Esterase NEG Urine RBC 0-3 Urine WBC 0-2 Microscopic Urinalysis Comment CULT NOT INDICATED Result Diagram: 07/29/17 0500 07/29/17 0500 Personally reviewed images: Yes Imaging Last Impressions Abdomen/Pelvis CT 07/28/17 1655 Signed Impressions: CONCLUSION: 1. By history: Carcinoma and bladder carcinoma with current left-sided obstruc tive uropathy and mild hydronephrosis. Etiology of obstructive uropathy on the left side not entirely clear. There is some abnormal low attenuation soft tissu e near the suture line in the rectum and there is increased soft tissue and str anding of pelvic fat. Cannot exclude local recurrence. Patient may benefit from a PET scan to assess for tumor recurrence. 2. Fatty liver with small low-attenuation lesions in the inferior right lobe p robably small cysts. 3. Gallstone present. 4. Ostomy left lower quadrant with small parastomal hernia. Head CT 07/28/17 0000 Signed Impressions: CONCLUSION: 1. No acute intracranial abnormalities. Assessment and Plan Assessment and Plan 67y.o M with H/o colot cancer involving bladder, and colovesical fistula, s/p surgery at [facility] 2016 Urology consulted for abnormal findings on CT scan - Continue care as per primary team - No acute intervention needed for mild left hydro - Pt needs to have a cystoscopy to r/o recurrent tumor in his bladder which can be done as outpt - Its preferred that pt will follow up with his surgeon and urologist at [facility] but if he decides to follow up with us we will be more then happy to do cystoscopy at our office with Dr Moreno for appointment). Based on other notes he is planning to be d/c tomorrow and will go to [place] for evaluation - Urology remains available as needed. Discussed Condition With Discussed with Dr Tiffanie ORTIZ attending who agrees with this plan Michel Gramajo Jul 29, 2017 16:48
[2017-07-30] VITALS: BP 153/89; PULSE 84; RESP 20; TEMP 96.9; O2SAT 98
[2017-07-30 03:20] VITALS: BP 162/95; PULSE 88; RESP 18; TEMP 97.8; O2SAT 96
[2017-07-30 04:00] VITALS: BP 153/89; PULSE 84; RESP 20; TEMP 96.9; O2SAT 98
[2017-07-30] MEDS: SODIUM CHLOR 0.9% 1000 ML INJ 1,000 ML IV SCH ×3 (04:53→23:13)
[2017-07-30] MEDS: MORPHINE SULFATE 15 MG CONTROLLED RELEASE TAB PO SCH ×3 (05:15→23:11)
[2017-07-30 07:50] VITALS: BP 156/85; PULSE 81; RESP 18; TEMP 97.4; O2SAT 96
[2017-07-30] MEDS: SODIUM CHLORIDE 0.9% FLUSH 10 ML FLUSH IV FLUSH SCH ×2 (09:00→21:00)
--- NOTE | 2017-07-30 10:45 | HHI.PR ---
Subjective Remarks Patient reports his back pain is better controlled since started on the morphine. Still not eating much. Palliative care to meet with the patient and family again today. Objective Vitals Vital Signs Date Time Temp Pulse Resp B/P (MAP) Pulse Ox O2 Delivery O2 Flow Rate FiO2 07/30/17 07:50 97.4 81 18 156/85 (108) 96 07/30/17 06:15 20 07/30/17 04:00 96.9 84 20 153/89 (110) 98 07/30/17 00:00 96.9 84 20 153/89 (110) 98 07/29/17 20:00 97.1 80 20 136/85 (102) 98 07/29/17 15:49 96.8 86 20 140/68 (92) 98 07/29/17 11:57 97.2 91 20 142/76 (98) 98 I/O 07/29/17 07/29/17 07/29/17 07/30/17 07/30/17 07/30/17 07:00 15:00 23:00 07:00 15:00 23:00 Intake Total 1840 ml 1000 ml Output Total 150 ml 250 ml 1000 ml 875 ml Balance -150 ml -250 ml 840 ml 125 ml Intake Oral 840 ml IV Total 1000 ml 1000 ml Output Urine Total 150 ml 250 ml 1000 ml 875 ml # Voids 2 3 # Bowel Movements 0 0 Result Diagram: 07/29/17 0500 07/29/17 0500 Objective Remarks GENERAL: Very frail male patient. Resting in bed CARDIOVASCULAR: Normal rate and regular rhythm without murmurs, gallops, or rubs. RESPIRATORY: Good respiratory efforts. Breath sounds equal and clear to auscultation bilaterally. GASTROINTESTINAL: Abdomen soft, Ostomy appear intact. Active bowel sounds MUSCULOSKELETAL: Extremities without cyanosis, or edema. Endorse tenderness to palpation in the paraspinous muscles in the lumbar area. NEURO: Alert & Oriented to person and place. Appear more alert today. PSYCH: Appropriate mood and affect. A/P Problem List: (1) Colon cancer ICD Code: C18.9 - Malignant neoplasm of colon, unspecified Status: Acute (2) Obstructive uropathy ICD Code: N13.9 - Obstructive and reflux uropathy, unspecified Status: Acute (3) Failure to thrive Status: Acute (4) Hydronephrosis ICD Code: N13.30 - Unspecified hydronephrosis Status: Acute Assessment and Plan 67-year-old male with metastatic colon cancer who has been receiving palliative chemotherapy at the [facility]. Unfortunately the patient does not appear to be responding to chemotherapy and is having worsening functional decline. Per his the [facility] is not willing to proceed with further chemotherapy treatment. Unfortunately there is not much else we can offer. I discussed with the patient and his . He states that he is hoping to go back to the [facility] and hopes to get better. He appeared very uncomfortable currently secondary to low back pain on admission. Plan: -Continue Oramorph low dose to help with low back pain. Patient states it is helping -Appreciate palliative care following. Family meeting scheduled for today. Palliative care also put out a call to the Oncology team at [facility] to get a better sense of his prognosis. - Regarding obstructive uropathy: Renal functions are stable. We will continue to monitor. - If the patient's goal is to return to [facility], I discussed with his to make arrangement for follow up appointment for when he is stable. Unfortunately it is obvious that he is likely will continue to decline as he did not respond to the chemo. If the patient and family decides to transition to comfort care, he is certainly appropriate for hospice. Discharge Planning Discharge planning depends on family meeting outcome with palliative care Problem Qualifiers (1) Colon cancer: Qualified Codes: C18.9 - Malignant neoplasm of colon, unspecified (2) Failure to thrive: Qualified Codes: R62.7 - Adult failure to thrive (3) Hydronephrosis: Qualified Codes: N13.30 - Unspecified hydronephrosis Alec Hedrick MD Jul 30, 2017 10:45
[2017-07-30 11:45] VITALS: BP 186/89; PULSE 91; RESP 18; TEMP 99.6; O2SAT 96
--- NOTE | 2017-07-30 15:04 | HHI.HCPN ---
Reason for visit a. To assist with evaluation and management of symptoms including: pain, confusion, poor appetite b. To assist medical decision maker(s) with: better understanding of current medical conditions; weighing benefits/burdens of medical treatment options; making medical treatment decisions. . Subjective/Interval History Mr. Wilkinson is a 67-year-old male patient with metastatic colon cancer who presented to [facility] and [place] on 07/28/2017 for evaluation of an overall decline to include fatigue, abdominal discomfort, decreased stool output from colostomy and decreased nutritional intake. Patient is currently being treated at the [facility] with systemic chemotherapy, but his states he has not received any aggressive treatments in the past 3 months secondary to his declining functional status. Follow-up visit for symptom management of pain, confusion and decreased appetite as well as clarification of medical treatment goals. Patient presents lying in bed with his eyes closed. He arouses easily to verbal stimuli and is oriented to person and place but appears to have limited insight regarding his medical condition. Patient was started on long-acting morphine 15 mg PO every 8 hours yesterday 07/29/2017. He currently reports lower back pain rated 4-5 out of 10, described as a dull aching. Patient cannot identify any exacerbating factors but states warm compresses helped relieve his discomfort. Patient is somewhat confused but does have intermittent moments of clarity as well. He knows that he has cancer, but he is unable to tell me what type of treatments he is getting. When asked about his medical treatment goals he states "to feel better." He was unable to clarify the meaning of that statement by telling me whether he meant having his symptoms managed or returning to the [facility] for further aggressive interventions. I was able to speak to John Cabrera, oncology PA, at the [facility] yesterday 07/29/2017. She states initial plans were to treat the patient with systemic chemotherapy followed by surgical resection which could be curative. However she states the patient has not received systemic treatment for the past several weeks secondary to functional decline, and considering hospice is a reasonable option that is consistent with the patient's medical treatment goals. A living well was completed in October,. Patient's is requesting hospice services stating she is unable to get the patient out of bed, he does not eat and he is experiencing significant pain. Recommendations to consult psychiatry for capacity. . Family/friend interactions See interval history . Advance Directives Living Will: Copy in medical record Health Care Surrogate: Copy in medical record Advance Directive Specifics Date completed: 11/06/2016 . Health Care Surrogate(s): Patient's , Tiffany, is designated as the healthcare surrogate decision maker. . Documented care wishes: A living will was completed on November 06, 2016 and can be accessed in the patient's EMR. . Significant change in goals: Possible hospice consult pending psychiatry evaluation for capacity. . Objective Vital Signs Date Time Temp Pulse Resp B/P (MAP) Pulse Ox O2 Delivery O2 Flow Rate FiO2 07/30/17 11:45 99.6 91 18 186/89 (121) 96 07/30/17 07:50 97.4 81 18 156/85 (108) 96 07/30/17 06:15 20 07/30/17 04:00 96.9 84 20 153/89 (110) 98 07/30/17 00:00 96.9 84 20 153/89 (110) 98 07/29/17 20:00 97.1 80 20 136/85 (102) 98 07/29/17 15:49 96.8 86 20 140/68 (92) 98 Intake & Output 07/30/17 07/30/17 07:00 19:00 Intake Total 2000 ml Output Total 1075 ml Balance 925 ml IV Total 2000 ml Output Urine Total 1075 ml # Voids 5 # Bowel Movements 0 . Physical Exam CONSTITUTIONAL/GENERAL: This is an frail, chronically ill-appearing, elderly male patient in no acute distress TUBES/LINES/DRAINS: PIV, VAD-right chest wall SKIN: No jaundice, rashes, or lesions. Ecchymoses on upper extremities. No wounds seen anteriorly. Skin temperature appropriate. Not diaphoretic. HEAD: Atraumatic. Normocephalic. EYES: Pupils equal and round and reactive. Extraocular motions intact. No scleral icterus. No injection or drainage. Fundi not examined. ENT: Hearing grossly normal. Nose without bleeding or purulent drainage. NECK: Trachea midline. Supple, nontender. No palpable thyroid enlargement or nodularity. CARDIOVASCULAR: Regular rate and rhythm without murmurs, gallops, or rubs. No JVD. Peripheral pulses symmetric. RESPIRATORY/CHEST: Symmetric, unlabored respirations. Clear to auscultation. Breath sounds diminished l bilaterally. No wheezes, rales, or rhonchi. GASTROINTESTINAL: Abdomen soft, slightly tender to palpation. Bowel sounds present. GENITOURINARY: Without palpable bladder distension. MUSCULOSKELETAL: Extremities without clubbing, cyanosis, or edema. No mottling or clubbing. LYMPHATICS: No palpable cervical or supraclavicular adenopathy. NEUROLOGICAL: Overall confused but intermittently alert. Responds to some questions; able to follow simple commands PSYCHIATRIC: Flat affect. No obvious anxiety/depression. No apparent hallucinations or other psychotic thought process. . Diagnostic Tests Laboratory Laboratory Tests Test 07/28/17 17:26 07/28/17 18:49 07/29/17 05:00 White Blood Count 5.4 TH/MM3 (4.0-11.0) 7.2 TH/MM3 (4.0-11.0) Red Blood Count 3.45 MIL/MM3 (4.50-5.90) 3.55 MIL/MM3 (4.50-5.90) Hemoglobin 10.8 GM/DL (13.0-17.0) 10.6 GM/DL (13.0-17.0) Hematocrit 31.7 % (39.0-51.0) 32.8 % (39.0-51.0) Mean Corpuscular Volume 91.7 FL (80.0-100.0) 92.4 FL (80.0-100.0) Mean Corpuscular Hemoglobin 31.3 PG (27.0-34.0) 29.9 PG (27.0-34.0) Mean Corpuscular Hemoglobin Concent 34.1 % (32.0-36.0) 32.4 % (32.0-36.0) Red Cell Distribution Width 14.6 % (11.6-17.2) 14.4 % (11.6-17.2) Platelet Count 154 TH/MM3 (150-450) 144 TH/MM3 (150-450) Mean Platelet Volume 7.2 FL (7.0-11.0) 6.9 FL (7.0-11.0) Neutrophils (%) (Auto) 93.2 % (16.0-70.0) 77.8 % (16.0-70.0) Lymphocytes (%) (Auto) 2.8 % (9.0-44.0) 10.3 % (9.0-44.0) Monocytes (%) (Auto) 3.2 % (0.0-8.0) 8.4 % (0.0-8.0) Eosinophils (%) (Auto) 0.1 % (0.0-4.0) 0.2 % (0.0-4.0) Basophils (%) (Auto) 0.7 % (0.0-2.0) 3.3 % (0.0-2.0) Neutrophils # (Auto) 5.0 TH/MM3 (1.8-7.7) 5.7 TH/MM3 (1.8-7.7) Lymphocytes # (Auto) 0.2 TH/MM3 (1.0-4.8) 0.7 TH/MM3 (1.0-4.8) Monocytes # (Auto) 0.2 TH/MM3 (0-0.9) 0.6 TH/MM3 (0-0.9) Eosinophils # (Auto) 0.0 TH/MM3 (0-0.4) 0.0 TH/MM3 (0-0.4) Basophils # (Auto) 0.0 TH/MM3 (0-0.2) 0.2 TH/MM3 (0-0.2) CBC Comment DIFF FINAL DIFF FINAL Differential Comment Prothrombin Time 11.8 SEC (9.8-11.6) Prothromb Time International Ratio 1.2 RATIO Activated Partial Thromboplast Time 25.6 SEC (24.3-30.1) Blood Urea Nitrogen 21 MG/DL (7-18) 16 MG/DL (7-18) Creatinine 0.92 MG/DL (0.60-1.30) 0.74 MG/DL (0.60-1.30) Random Glucose 139 MG/DL (74-106) 83 MG/DL (74-106) Total Protein 6.8 GM/DL (6.4-8.2) Albumin 3.2 GM/DL (3.4-5.0) Calcium Level 8.6 MG/DL (8.5-10.1) 8.1 MG/DL (8.5-10.1) Alkaline Phosphatase 85 U/L (45-117) Aspartate Amino Transf (AST/SGOT) 42 U/L (15-37) Alanine Aminotransferase (ALT/SGPT) 25 U/L (12-78) Total Bilirubin 0.4 MG/DL (0.2-1.0) Sodium Level 135 MEQ/L (136-145) 137 MEQ/L (136-145) Potassium Level 4.1 MEQ/L (3.5-5.1) 3.8 MEQ/L (3.5-5.1) Chloride Level 99 MEQ/L (98-107) 103 MEQ/L (98-107) Carbon Dioxide Level 29.7 MEQ/L (21.0-32.0) 28.9 MEQ/L (21.0-32.0) Anion Gap 6 MEQ/L (5-15) 5 MEQ/L (5-15) Estimat Glomerular Filtration Rate 82 ML/MIN (>89) 105 ML/MIN (>89) Lactic Acid Level 1.5 mmol/L (0.4-2.0) Urine Color YELLOW (YELLW/STRAW) Urine Turbidity CLEAR (CLEAR) Urine pH 6.0 (5.0-8.5) Urine Specific [place] 1.020 (1.002-1.035) Urine Protein NEG mg/dL (NEG-TRACE) Urine Glucose (UA) NEG mg/dL (NEG) Urine Ketones NEG mg/dL (NEG) Urine Occult Blood NEG (NEG) Urine Nitrite NEG (NEG) Urine Bilirubin NEG (NEG) Urine Urobilinogen 0.2 MG/DL (LESS THAN Urine Leukocyte Esterase NEG (NEG) Urine RBC 0-3 /hpf (0-3) Urine WBC 0-2 /hpf (0-5) Microscopic Urinalysis Comment CULT NOT INDICATED Result Diagram: 07/29/17 0500 07/29/17 0500 Imaging Last 72 hours Impressions Abdomen/Pelvis CT 07/28/17 2308 Signed Impressions: CONCLUSION: 1. By history: Carcinoma and bladder carcinoma with current left-sided obstruc tive uropathy and mild hydronephrosis. Etiology of obstructive uropathy on the left side not entirely clear. There is some abnormal low attenuation soft tissu e near the suture line in the rectum and there is increased soft tissue and str anding of pelvic fat. Cannot exclude local recurrence. Patient may benefit from a PET scan to assess for tumor recurrence. 2. Fatty liver with small low-attenuation lesions in the inferior right lobe p robably small cysts. 3. Gallstone present. 4. Ostomy left lower quadrant with small parastomal hernia. Head CT 07/28/17 0000 Signed Impressions: CONCLUSION: 1. No acute intracranial abnormalities. . Assessment and Plan Disease Oriented Problem List: (1) Hydronephrosis (2) Failure to thrive (3) Obstructive uropathy (4) Colon cancer Symptom Scale: (1) Pain 0-10 Scale: Unable to quantify Comment: Started on long-acting morphine 15 mg PO q8 hours on 07/29/17. May want to consider starting a low-dose of short acting morphine for breakthrough pain if indicated. (2) Confusion 0-10 Scale: Unable to quantify Comment: Patient appears somewhat dazed. Flat affect. Will respond to only some questions with brief 1-2 word answers; follows simple commands intermittently. CT head on 07/28/2017 revealed no acute intracranial abnormalities. . (3) Decrease in appetite 0-10 Scale: Unable to quantify Comment: Patient's reports a significant decrease in appetite with an estimated weight loss of 50 pounds in the past year. She states that patient's nutritional intake has been poor for the past several weeks; appetite stimulants were unsuccessful. Patient reportedly was drinking 1 Ensure per day before this hospitalization. . Pertinent Non-Medical Issues Psychosocial: Patient is originally from [place] but has lived in [place] most of his life. He has been 3 times. Currently to his third , Tiffany . They have been for approximately 30 years. He has 4 children; 2 from a previous relationships and 2 from his current marriage. Tiffany states they have a son who is 26 years old and a daughter who is 21 years old. Their daughter is and planning a wedding. Patient's states she had left her a short time before he was diagnosed ion the summer. Since being diagnosed the patient and his , who is the primary caregiver, has been residing together again. Spiritual: Pending further conversations Legal: No known legal issues impacting care Ethical issues impacting care: No known ethical issues impacting care. . Important Contacts Tiffany Wilkinson, : [phone] Teodoro Wilkinson, daughter: [phone] . Prognosis Patient is a 67-year-old male who was diagnosed with metastatic colon cancer approximately 10-11 months ago. He has been receiving systemic therapy at the [facility], but has missed the past 6 cycles of chemotherapy secondary to poor functioning status. Given the patient's diagnosis of metastatic colon cancer, advanced age and poor functioning status, he is at high risk for ongoing decline and complications. Patient is hospice appropriate when/if his medical treatment goals become comfort oriented. . Code Status: No Code Plan * NO CODE-DNR/DNI * Decision-making: Patient has limited insight and judgment related to his medical conditions; it is unclear if the patient will regain capacity for medical decision-making. Patient has designated his , Tiffany, as his healthcare surrogate decision maker. * A living will was completed on November 06, 2016 and is accessible in the EMR. The document states that if the patient were to have a terminal condition , an end-stage condition, or be in a persistent vegetative state, and if his attending physician and another consulting physician had determined that there was no reasonable medical probability of his recovery from such condition, he directs that life prolonging procedures be withheld or withdrawn when application of such procedures would serve only to prolong artificially the process of dying, and that he be permitted to naturally with only the administration of medication or the performance of any medical procedures deemed necessary to provide him with comfort care or to alleviate pain. * Goals currently aggressive up to the point of cardiopulmonary resuscitation. * I was able to speak to John Cabrera, oncology PA, at the [facility] yesterday 07/29/2017. She states initial plans were to treat the patient with systemic chemotherapy followed by surgical resection which could be curative. However she states the patient has not received systemic treatment for the past several weeks secondary to functional decline, and considering hospice is a reasonable option that is consistent with the patient's medical treatment goals. A living well was completed in October,. Patient's is requesting hospice services stating she is unable to get the patient out of bed , he does not eat and he is experiencing significant pain. Recommendations to consult psychiatry for capacity. * Discussed patient with Chadd MENARD, Dr. Hedrick, Dr. Morelos and Dr. Xie. * Hospice has been following, update provided. * Symptoms: pain, confusion, decreased appetite. * Palliative care will continue to follow this patient throughout his hospitalization to establish trust, assist with symptom management and clarification of medical treatment goals. . Attestation To help prompt me to consider important information that might be impacting today's encounter and assessment, information from prior notes written by myself or my colleagues may have been "brought forward" into today's note. My signature on this note, however, is an attestation that I personally performed the exam, history, and/or decision-making noted today, and, unless otherwise indicated, the interactions with patient, family, and staff as well as the review of records all occurred today. I also attest that the listed assessment and stated plan reflect my best clinical judgment today based on the combination of historical information, prior notes, and today's exam/ interactions. When time spent is documented, it refers only to time spent today by the signer, or if indicated, combined time spent today by collaborating physician/nurse practitioner. . Veda Echeverria Jul 30, 2017 15:04
[2017-07-30 20:00] VITALS: BP 176/88; PULSE 88; RESP 18; TEMP 97.7; O2SAT 96
[2017-07-31] VITALS: BP 164/95; PULSE 91; RESP 18; TEMP 96.7; O2SAT 94
[2017-07-31 00:50] VITALS: BP 148/72
[2017-07-31] MEDS: MORPHINE SULFATE 15 MG CONTROLLED RELEASE TAB PO SCH ×2 (06:17→12:28)
[2017-07-31 08:00] VITALS: BP 168/87; PULSE 91; RESP 16; TEMP 97.2
[2017-07-31] MEDS: SODIUM CHLORIDE 0.9% FLUSH 10 ML FLUSH IV FLUSH SCH (08:04)
[2017-07-31] MEDS: SODIUM CHLOR 0.9% 1000 ML INJ 1,000 ML IV SCH (08:12)
[2017-07-31] MEDS ORDERED: MORP1TAB24 PO (08:58)
--- NOTE | 2017-07-31 08:59 | HHI.DS ---
Discharge Summary Admission Date Jul 28, 2017 at 20:05 Discharge Date: Jul 31, 2017 Admitting Diagnosis FAILURE TO THRIVE, METASTATIC COLON CANCER, HYDRONEPHRSIS. (1) Colon cancer ICD Code: C18.9 - Malignant neoplasm of colon, unspecified Status: Acute (2) Obstructive uropathy ICD Code: N13.9 - Obstructive and reflux uropathy, unspecified Status: Acute (3) Failure to thrive Status: Acute (4) Hydronephrosis ICD Code: N13.30 - Unspecified hydronephrosis Status: Acute Procedures None Brief History - From Admission 67-year-old male with a medical history significant for metastatic colon cancer status post colectomy who apparently has been gone palliative chemotherapy at the [facility]. Unfortunately the patient's condition has been deteriorating while receiving chemotherapy. He presented to the hospital with complaint of worsening fatigue, very limited p.o. intake, and overall worsening functional status. Much of the history taken from the patient's at bedside. She reports that she understands the patient is getting worse to be improving. The patient himself reports that his goal is to go back to the [facility] in hopes that they will make him better. Currently he appears very uncomfortable, restless, unable to sit in one area. He complains of lower back pain. Imaging in the emergency room revealed possible obstruction with hydronephrosis. However renal functions are unremarkable. CBC/BMP: 07/29/17 0500 07/29/17 0500 Significant Findings Laboratory Tests Test 07/28/17 17:26 07/28/17 18:49 07/29/17 05:00 Red Blood Count 3.45 MIL/MM3 (4.50-5.90) 3.55 MIL/MM3 (4.50-5.90) Hemoglobin 10.8 GM/DL (13.0-17.0) 10.6 GM/DL (13.0-17.0) Hematocrit 31.7 % (39.0-51.0) 32.8 % (39.0-51.0) Neutrophils (%) (Auto) 93.2 % (16.0-70.0) 77.8 % (16.0-70.0) Lymphocytes (%) (Auto) 2.8 % (9.0-44.0) Lymphocytes # (Auto) 0.2 TH/MM3 (1.0-4.8) 0.7 TH/MM3 (1.0-4.8) Prothrombin Time 11.8 SEC (9.8-11.6) Blood Urea Nitrogen 21 MG/DL (7-18) Random Glucose 139 MG/DL (74-106) Albumin 3.2 GM/DL (3.4-5.0) Aspartate Amino Transf (AST/SGOT) 42 U/L (15-37) Sodium Level 135 MEQ/L (136-145) Estimat Glomerular Filtration Rate 82 ML/MIN (>89) Platelet Count 144 TH/MM3 (150-450) Mean Platelet Volume 6.9 FL (7.0-11.0) Monocytes (%) (Auto) 8.4 % (0.0-8.0) Basophils (%) (Auto) 3.3 % (0.0-2.0) Calcium Level 8.1 MG/DL (8.5-10.1) Imaging Last Impressions Abdomen/Pelvis CT 07/28/17 1655 Signed Impressions: CONCLUSION: 1. By history: Carcinoma and bladder carcinoma with current left-sided obstruc tive uropathy and mild hydronephrosis. Etiology of obstructive uropathy on the left side not entirely clear. There is some abnormal low attenuation soft tissu e near the suture line in the rectum and there is increased soft tissue and str anding of pelvic fat. Cannot exclude local recurrence. Patient may benefit from a PET scan to assess for tumor recurrence. 2. Fatty liver with small low-attenuation lesions in the inferior right lobe p robably small cysts. 3. Gallstone present. 4. Ostomy left lower quadrant with small parastomal hernia. Head CT 07/28/17 0000 Signed Impressions: CONCLUSION: 1. No acute intracranial abnormalities. PE at Discharge GENERAL: Very frail male patient. Resting in bed CARDIOVASCULAR: Normal rate and regular rhythm without murmurs, gallops, or rubs. RESPIRATORY: Good respiratory efforts. Breath sounds equal and clear to auscultation bilaterally. GASTROINTESTINAL: Abdomen soft, Ostomy appear intact. Active bowel sounds MUSCULOSKELETAL: Extremities without cyanosis, or edema. NEURO: Alert & Oriented to self, place, and situation. Appear more alert today. PSYCH: Appropriate mood and affect. Pt update on day of discharge Patient reports he is feeling better. Extensive discussion with him again regarding goals of care. He states he wants to return to [facility] in hopes of getting better and continuing with chemotherapy. Hospital Course 67-year-old male with metastatic colon cancer who has been receiving palliative chemotherapy at the [facility]. Unfortunately the patient does not appear to be responding to chemotherapy and is having worsening functional decline. Per his the [facility] is not willing to proceed with further chemotherapy treatment. Unfortunately there is not much else we can offer. I discussed with the patient and his . He states that he wants to go back to the [facility] and hopes to get better. He appeared very uncomfortable currently secondary to low back pain on admission. Since admission he appears to be more alert with more energy. Some of his sedated home medications were put on hold and discontinued. The patient was followed by palliative care. He was also seen by psychiatry. At this time, he does appear to have capacity to make his own decisions. He wants to continue to follow-up at the [facility]. At this time the patient has reached maximal benefit from this hospitalization. He is discharged to follow-up outpatient with the [facility]. If [facility] Syed that he cannot go through with chemotherapy. Hospice could be an option for him if his goals changed to comfort care. I discussed this with his extensively. Pt Condition on Discharge: Stable Discharge Disposition: Disch w/ Home Health Serv Discharge Time: <= 30 minutes Discharge Instructions DIET: Follow Instructions for: Heart Healthy Diet Activities you can perform: Regular-No Restrictions Follow up Referrals: PCP Follow-up New Medications: Morphine ER (Morphine ER) 15 Mg Tab 15 MG PO Q8HR, #30 TAB Continued Medications: Aluminum Hydroxide Liq Gel (Aluminum Hydroxide Liq Gel) 320 Mg/5 Ml Susp 10 ML PO Q4H PRN for INDIGESTION OR UPSET STOMACH, ML 0 Refills Take after meals and at bedtime. Maximum of 3,840 mg (60 ml)/24 hrs. Citalopram (Celexa) 10 Mg Tab 10 MG PO DAILY for Control Depression, #30 TAB 0 Refills Diphenoxylate-Atropine (Lomotil) 2.5-0.025 Mg Tab 1 TAB PO Q6H PRN for DIARRHEA, TAB 0 Refills Promethazine Supp (Promethazine Supp) 12.5 Mg Supp 12.5 MG RECTAL Q4H PRN for NAUSEA OR VOMITING, SUPP 0 Refills Rivaroxaban (Xarelto) 20 Mg Tab 20 MG PO DAILY for Blood Clot Prevention, TAB 0 Refills Sertraline (Sertraline) 50 Mg Tab 50 MG PO DAILY, #30 TAB 0 Refills Discontinued Medications: Clonazepam (Clonazepam) 1 Mg Tab 1 MG PO TID, #90 TAB 0 Refills Dexamethasone (Dexamethasone) 4 Mg Tab 4 MG PO DAILY, #30 TAB 0 Refills Metronidazole (Flagyl) 500 Mg Tab 500 MG PO TID for Infection, TAB 0 Refills Prochlorperazine Maleate (Prochlorperazine Maleate) 10 Mg Tab 10 MG PO Q6H PRN for NAUSEA OR VOMITING, TAB 0 Refills Trazodone (Trazodone) 100 Mg Tablet 100 MG PO HS for Control Depression, #30 TAB 0 Refills Alec Hedrick MD Jul 31, 2017 08:59
[2017-07-31] MEDS ORDERED: SODIUM CHLORIDE 0.9% FLUSH 10 ML FLUSH IVF PRN (10:00)
--- NOTE | 2017-07-31 14:18 | PD.PSY.CON ---
Provisional Diagnosis Admission Date Jul 28, 2017 at 20:05 Sweeden I. Delirium due to another underlying medical conditions, psychological factors affecting another medical condition, Sweeden II. Deferred Sweeden III. Colon cancer History of Present Illness Service Psychiatry Consult Requested By Decision-making capacity Reason for Consult Decision-making about Primary Care Physician Abram Pat MD HPI The patient was seen this morning at 7:30 AM The patient is 67-year-old man, domiciled in [place] with his , he has 4 kids, unemployed, without no previous psychiatric history, no previous suicide attempts, no previous psychiatric hospitalizations, he denies the use of alcohol and illegal drugs, with a medical history significant for metastatic colon cancer status post colectomy who apparently has been gone palliative chemotherapy at the [facility]. Unfortunately the patient's condition has been deteriorating longer receive chemotherapy. He presented to the hospital with complaint of worsening fatigue, very limited p.o. intake, and overall worsening functional status. Apparently the patient has been hoping to go back to chemotherapy, but oncologist in [facility] is pessimistic about the possibility of the patient being able to restart chemotherapy. He was consulted to psychiatry to assess decision-making capacity to participate in a discharge and treatment plan. EMR was reviewed. The case was widely discussed with primary medical team and also with palliative care. On psychiatric evaluation today the patient is found awake, alert, calm, cooperative and pleasant. The patient reports he feels a little bit better. He denies pain or distress at this moment. Once the patient saw me he asked me to help him to sit down in order to talk better. The patient states that he has being in the hospital for 3 days. He says that the reason he is here is because he has been weak, he was diagnosed with colon cancer about a year ago he has being in chemotherapy. The patient reports that they stop the chemotherapy due to his witnessed. His hope is that he can go back to chemotherapy and he can get better. The patient says that he understands that he is illness could be terminal, "but I want to take any chance, for small it is, and fight for my life ". The patient seems to be a little bit restless, uncomfortable, even though he denies being in pain. He reports to be in a fair mood. He denies anhedonia , hopelessness, helplessness, worthlessness, he reports okay appetite, good sleep at night, he denies suicidal enemas ideation. He denies visual and auditory hallucinations. She is fully oriented 3. He has good recent and immediate recall. Good abstraction, attention, concentration and conservative language. The patient expresses that at this point he has not been explained very well if they are going to continue or not the chemotherapy, "but all I know is that I want to take it if is offered". I asked what about if they are not offering more chemotherapy and they offer him hospice care and he states "I will do whatever is recommended by doctors and is the better for me". He denies the use of illegal drugs and alcohol. Review of Systems Constitutional: DENIES: Diaphoretic episodes, Fatigue, Fever, Weight gain, Weight loss, Chills, Dizziness, Change in appetite, Night Sweats Endocrine: DENIES: Heat/cold intolerance, Polydipsia, Polyuria, Polyphagia Eyes: DENIES: Blurred vision, Diplopia, Eye inflammation, Eye pain, Vision loss , Photosensitivity, Double Vision Ears, nose, mouth, throat: DENIES: Tinnitus, Hearing loss, Vertigo, Nasal discharge, Oral lesions, Throat pain, Hoarseness, Ear Pain, Running Nose, Epistaxis, Sinus Pain, Toothache, Odynophagia Respiratory: DENIES: Apneas, Cough, Snoring, Wheezing, Hemoptysis, Sputum production, Shortness of breath Cardiovascular: DENIES: Chest pain, Palpitations, Syncope, Dyspnea on Exertion , PND, Lower Extremity Edema, Orthopnea, Claudication Gastrointestinal: DENIES: Abdominal pain, Black stools, Bloody stools, Constipation, Diarrhea, Nausea, Vomiting, Difficulty Swallowing, Anorexia Genitourinary: DENIES: Sexual dysfunction, Urinary frequency, Urinary incontinence, Urgency, Hematuria, Dysuria, Nocturia, Penile Discharge, Testicular Pain, Testicular Swelling Integumentary: DENIES: Abnormal pigmentation, Nail changes, Pruritus, Rash Hematologic/lymphatic: DENIES: Bruising, Lymphadenopathy Immunologic/allergic: DENIES: Eczema, Urticaria Neurologic: DENIES: Abnormal gait, Headache, Localized weakness, Paresthesias, Seizures, Speech Problems, Tremor, Poor Balance Psychiatric: DENIES: Anxiety, Confusion, Mood changes, Depression, Hallucinations, Agitation, Suicidal Ideation, Homicidal Ideation, Delusions Past Family Social History Coded Allergies: No Known Allergies (Verified Allergy, Unknown, 07/28/17) Active Scripts Morphine ER (Morphine ER) 15 Mg Tab, 15 MG PO Q8HR, #30 TAB Prov:Alec Hedrick MD 07/31/17 Reported Medications Rivaroxaban (Xarelto) 20 Mg Tab, 20 MG PO DAILY for Blood Clot Prevention, TAB 0 Refills 07/28/17 Sertraline (Sertraline) 50 Mg Tab, 50 MG PO DAILY, #30 TAB 0 Refills 07/28/17 Promethazine Supp (Promethazine Supp) 12.5 Mg Supp, 12.5 MG RECTAL Q4H Y for NAUSEA OR VOMITING, SUPP 0 Refills 07/28/17 Diphenoxylate-Atropine (Lomotil) 2.5-0.025 Mg Tab, 1 TAB PO Q6H Y for DIARRHEA, TAB 0 Refills 07/28/17 Aluminum Hydroxide Liq Gel (Aluminum Hydroxide Liq Gel) 320 Mg/5 Ml Susp, 10 ML PO Q4H Y for INDIGESTION OR UPSET STOMACH, ML 0 Refills Take after meals and at bedtime. Maximum of 3,840 mg (60 ml)/24 hrs. 07/28/17 Citalopram (Celexa) 10 Mg Tab, 10 MG PO DAILY for Control Depression, #30 TAB 0 Refills 07/28/17 Discontinued Reported Medications Trazodone (Trazodone) 100 Mg Tablet, 100 MG PO HS for Control Depression, #30 TAB 0 Refills 07/28/17 Prochlorperazine Maleate (Prochlorperazine Maleate) 10 Mg Tab, 10 MG PO Q6H Y for NAUSEA OR VOMITING, TAB 0 Refills 07/28/17 Metronidazole (Flagyl) 500 Mg Tab, 500 MG PO TID for Infection, TAB 0 Refills 07/28/17 Dexamethasone (Dexamethasone) 4 Mg Tab, 4 MG PO DAILY, #30 TAB 0 Refills 07/28/17 Clonazepam (Clonazepam) 1 Mg Tab, 1 MG PO TID, #90 TAB 0 Refills 07/28/17 Buspirone (Buspirone) 10 Mg Tab, 10 MG PO BID for Anxiety, TAB 0 Refills 10/03/16 Trazodone (Trazodone) 50 Mg Tab, 50 MG PO HS for Control Depression, #30 TAB 0 Refills 10/03/16 Discontinued Scripts Hydrocodone-Acetaminophen (Hydrocodone-Acetaminophen) 5-325 mg Tab, 1 TAB PO Q4H Y for PAIN SCALE 1 TO 4, #30 TAB 0 Refills Prov:Chris Cabrera MD 09/29/16 Hydrocodone-Acetaminophen (Hydrocodone-Acetaminophen) 5-325 mg Tab, 2 TAB PO Q4H Y for PAIN SCALE 5 TO 10, #30 TAB 0 Refills Prov:Chris Cabrera MD 09/29/16 Family Psych History No family psychiatric history Social History Patient was born and raised in [place], he lives in [place] with his , father of 4 kids, employed, his highest level of education is high school Patient's Strengths (min. 2) No prior psychiatric history Physical Exam Psychomotor retardation, the patient seems to be quite slow, difficulty moving, but no tremors, no EPS, Vital Signs Vital Signs Date Time Temp Pulse Resp B/P (MAP) Pulse Ox O2 Delivery O2 Flow Rate FiO2 07/31/17 08:00 97.2 91 16 168/87 (114) 07/31/17 00:00 94 07/29/17 07:11 Room Air I/O 07/31/17 07/31/17 08/01/17 08:00 16:00 00:00 Intake Total 1000 ml Output Total 1000 ml Balance -1000 ml 1000 ml Mental Status Examination Appearance: Appropriate Consciousness: Alert Orientation: x4 Motor Activity: Normal gait Speech: Unremarkable Language: Adequate Fund of Knowledge: Adequate Attention and Concentration: Adequate Memory: Unremarkable Mood: Appropriate Affect: Appropriate Thought Process & Associations: Intact Thought Content: Appropriate Hallucination Type: None Delusion Type: None Suicidal Ideation: No Suicidal Plan: No Suicidal Intention: No Homicidal Ideation: No Homicidal Plan: No Homicidal Intention: No Insight: Adequate Judgment: Adequate Assessment & Plan Problem List: (1) Delirium ICD Codes: R41.0 - Disorientation, unspecified Assessment & Plan: On psychiatric evaluation today the patient does not present any significant, acute or concerning neuropsychiatric symptoms or require immediate psychiatric intervention. The patient reports fair mood, denies symptomatology of depression, denies anxiety, denies regina and psychosis. He denies suicidal and homicidal ideation, he denies visual and auditory hallucinations. Even though the patient seems to be a little bit slow , with respiratory speech and fragmented thought, he is logical, coherent and relevant. Patient is fully oriented 3, with Mini-Mental of 27/30 at this moment. Patient has a very good understanding and appreciation of current medical situation, his prognosis, alternative treatments and options, and his choice seem to be quite clear and logical: He prefers to continue chemotherapy even though there is just a slight chance of cancer remission. So far the patient has not been informed if chemotherapy is going to be declined or discontinue, all he knows is that once he get better he would be able to continue chemotherapy. I have discussed widely with primary team and palliative care patient circumstances. The patient at this moment do have decision-making capacity to participate in discharge and treatment plan. I have encouraged the patient to discuss with oncologist in [facility] about the future of his treatment and then take a decision. Brief supportive psychotherapy provided. Consult appreciated Assessment & Plan Estimated LOS: Angel Santana MD Jul 31, 2017 14:18
== END 2017-07-31 12:32 | disposition home or self-care (01) ==
LOC: PHED 16:19 → PHEDA 20:05 → PHEDH 07-29 00:05 → PH3B 07-29 08:38
PROVIDERS: ADMIT Family Medicine; ATTEND Family Medicine
DX: C19 Malignant neoplasm of rectosigmoid junction (principal); N13.9 Obstructive and reflux uropathy, unspecified; C79.11 Secondary malignant neoplasm of bladder; R62.7 Adult failure to thrive; N13.30 Unspecified hydronephrosis; R53.83 Other fatigue; R53.1 Weakness; Z93.3 Colostomy status; K76.0 Fatty (change of) liver, not elsewhere classified; K80.20 Calculus of gallbladder without cholecystitis without obstruction; K43.5 Parastomal hernia without obstruction or gangrene; M54.5 Low back pain; Z86.718 Personal history of other venous thrombosis and embolism; F32.9 Major depressive disorder, single episode, unspecified; Z86.61 Personal history of infections of the central nervous system; Z79.01 Long term (current) use of anticoagulants; Z51.5 Encounter for palliative care
CPT/HCPCS: 70450; 74177; 80048; 80053; 81001; 83605; 85025; 85610; 85730; 93005; 96361; 96374; 97110; 97116; 97162; 99285; G0378; G8987; G8988; J1642; J2270; J7030; Q9967